=== PATIENT | male | born 1960 | race Caucasian/White ===

== ENCOUNTER 2018-08-02 18:41 | Inpatient (IN) | payer BC ==
--- NOTE | 2018-08-02 21:09 | ER Document Report ---
ED Medical Screen (RME) - General Chief Complaint: Abdominal Pain Stated Complaint: ABDOMINAL PAIN Time Seen by Provider: 08/02/18 20:48 Mode of Arrival: Ambulatory Information source: Patient Notes: Patient presents the emergency department with complaints of severe mid abdominal pain, vomiting and weakness. Patient denies any fever or diarrhea. He does state he has a history of an umbilical hernia. He states that the pain felt like a severe sharp stabbing pain just below his bellybutton. He states that since arrival to the emergency department the pain has eased off slightly. Exam: Generalized tenderness to palpation to mid abdomen I have greeted and performed a rapid initial assessment of this patient. A comprehensive ED assessment and evaluation of the patient, analysis of test results and completion of the medical decision making process will be conducted by additional ED providers. Dictation of this chart was performed using voice recognition software; therefore, there may be some unintended grammatical errors. TRAVEL OUTSIDE OF THE [place] IN LAST 30 DAYS: No - Related Data Allergies/Adverse Reactions: No Known Allergies Allergy (Verified 08/02/18 18:41) Past Medical History - Past Medical History Cardiac Medical History: Denies: Hx Coronary Artery Disease, Hx Heart Attack, Hx Hypertension Pulmonary Medical History: Reports: Hx Asthma - "touch", rare inhaler, Hx Pneumonia - 15-20 yrs ago Denies: Hx Bronchitis, Hx COPD Neurological Medical History: Denies: Hx Cerebrovascular Accident, Hx Seizures Renal/ Medical History: Denies: Hx Peritoneal Dialysis GI Medical History: Musculoskeltal Medical History: Denies Hx Arthritis Infectious Medical History: Past Surgical History: Reports: Hx Abdominal Surgery - umbilical hernia, Hx Nose Surgery - sinus. Denies: Hx Pacemaker - Immunizations Hx Diphtheria, Pertussis, Tetanus Vaccination: Yes Physical Exam - Vital signs Vitals: Temp Pulse Resp BP Pulse Ox 98.9 F 79 16 145/79 H 96 08/02/18 19:09 08/02/18 19:09 08/02/18 19:09 08/02/18 19:09 08/02/18 19:09 Course - Vital Signs Vital signs: Temp Pulse Resp BP Pulse Ox 98.9 F 79 16 145/79 H 96 08/02/18 19:09 08/02/18 19:09 08/02/18 19:09 08/02/18 19:09 08/02/18 19:09
[2018-08-02] MEDS ORDERED: MORPHINE SULFATE 10 MG/ML INJ IV ONE (21:10)
[2018-08-02] MEDS ORDERED: ONDANSETRON HCL INJ/PF 4 MG/2 ML SDV IV ONE (21:10)
--- NOTE | 2018-08-02 21:47 | RADIOLOGY REPORT (SQ) ---
EXAM DESCRIPTION: XR ABDOMEN 1 VIEW (KUB) COMPLETED DATE/TME: 08/02/2018 21:07 CLINICAL HISTORY: 58 years Male ,abd pain COMPARISON: None. TECHNIQUE: Single view of the abdomen was provided.. FINDINGS:Upper abdomen incompletely included on the image. No dilated loops of bowel to suggest obstruction. No abnormal calcifications noted. Degenerative changes are present in the spine and hips particularly around the right acetabulum. Postsurgical changes are present in the midline. IMPRESSION: No acute plain film abnormality is identified.
[2018-08-02 21:59] LABS: APPEARANCE,URINE CLEAR; BILIRUBIN,URINE NEGATIVE (NEGATIVE); COLOR,URINE YELLOW; GLUCOSE, URINE NEGATIVE (NEGATIVE); KETONES,URINE TRACE mg/dL (NEGATIVE); LEUKOCYTE ESTERASE,URINE NEGATIVE (NEGATIVE); NITRITE,URINE NEGATIVE (NEGATIVE); PROTEIN,URINE NEGATIVE (NEGATIVE); URINE SPECIFIC GRAVITY 1.021; UROBILINOGEN,URINE NEGATIVE mg/dL (<2.0)
[2018-08-02 22:00] LABS: HEMATOCRIT 44.8 % (37.9-51.0); HEMOGLOBIN 15.3 g/dL (13.5-17.0); MEAN CORPUSCULAR HEMOGLOBIN 29.7 pg (27.0-33.4); MEAN CORPUSCULAR HGB CONC 34.1 g/dL (32.0-36.0); MEAN CORPUSCULAR VOLUME 87 fl (80-97); PLATELET COUNT 198 10^3/uL (150-450); RED BLOOD COUNT 5.14 10^6/uL (4.35-5.55); RED CELL DISTRIBUTION WIDTH 13.4 % (11.5-14.0); WHITE BLOOD COUNT 13.9 10^3/uL (4.0-10.5)
[2018-08-02 22:11] LABS: ABSOLUTE LYMPHOCYTES# (MANUAL) 0.6 10^3/uL (0.5-4.7); ABSOLUTE MONOCYTES # (MANUAL) 0.1 10^3/uL (0.1-1.4); ABSOLUTE NEUTROPHILS# (MANUAL) 13.2 10^3/uL (1.7-8.2); BASOPHILS % (MANUAL) 0 % (0-2); EOSINOPHILS % (MANUAL) 0 % (0-6); LYMPHOCYTES % (MANUAL) 4 % (13-45); MONOCYTES % (MANUAL) 1 % (3-13); SEGMENTED NEUTROPHILS % (MAN) 95 % (42-78); TOTAL CELLS COUNTED 100
[2018-08-02 22:13] LABS: ALANINE AMINOTRANSFERASE 37 U/L (21-72); ALBUMIN 4.2 g/dL (3.5-5.0); ALKALINE PHOSPHATASE 66 U/L (38-126); ANION GAP 9 (5-19); ASPARTATE AMINO TRANSFERASE 21 U/L (17-59); BILIRUBIN,DIRECT 0.3 mg/dL (0.0-0.4); BILIRUBIN,TOTAL 1.5 mg/dL (0.2-1.3); BLOOD UREA NITROGEN 16 mg/dL (7-20); CALCIUM 9.6 mg/dL (8.4-10.2); CARBON DIOXIDE 30 mmol/L (22-30); CHLORIDE 100 mmol/L (98-107); GLUCOSE 157 mg/dL (75-110); LIPASE 22.8 U/L (23-300); POTASSIUM 4.7 mmol/L (3.6-5.0); SODIUM 139.4 mmol/L (137-145); TOTAL PROTEIN 6.8 g/dL (6.3-8.2)
[2018-08-02 22:14] LABS: RBC MORPHOLOGY COMMENT NORMO-CYTIC/CHROMIC; TOXIC GRANULATION SLIGHT
[2018-08-02 22:15] LABS: PLATELET COMMENT ADEQUATE
--- NOTE | 2018-08-03 01:48 | ER Document Report ---
ED General - General Chief Complaint: Abdominal Pain Stated Complaint: ABDOMINAL PAIN Time Seen by Provider: 08/02/18 20:48 Primary Care Provider: ADRIANA BURNS MD [Primary Care Provider] - Follow up as needed Mode of Arrival: Ambulatory Information source: Patient, Relative, [facility] Records Notes: 58-year-old male with a history of GERD, asthma presents with complaint of left lower quadrant abdominal pain that started 1 day prior to arrival. Patient states the pain was severe, sharp and associated with multiple episodes of nausea and vomiting. Upon my exam patient's pain and nausea have resolved. He denies any sick contacts, chest pain, shortness of breath, dysuria, hematuria. Patient's last bowel movement was this morning. Denies any black or bloody st ools. Patient reports an endoscopy and colonoscopy within the last year that was normal. TRAVEL OUTSIDE OF THE [place] IN LAST 30 DAYS: No - HPI Onset: Yesterday Onset/Duration: Gradual, Better Quality of pain: Stabbing, Throbbing Severity: Mild Pain Level: 1 Associated symptoms: Nausea, Vomiting, Weakness. denies: Chest pain, Chills, Diarrhea, Fever, Headache Exacerbated by: Walking Relieved by: Supine Similar symptoms previously: Yes Recently seen / treated by doctor: No - Related Data Allergies/Adverse Reactions: No Known Allergies Allergy (Verified 08/02/18 18:41) Past Medical History - General Information source: Patient - Social History Smoking Status: Never Smoker Frequency of alcohol use: None Drug Abuse: None Lives with: Spouse/Significant other Family History: Reviewed & Not Pertinent Patient has suicidal ideation: No Patient has homicidal ideation: No - Past Medical History Cardiac Medical History: Denies: Hx Coronary Artery Disease, Hx Heart Attack, Hx Hypertension Pulmonary Medical History: Reports: Hx Asthma - "touch", rare inhaler, Hx Pneumonia - 15-20 yrs ago Denies: Hx Bronchitis, Hx COPD Neurological Medical History: Denies: Hx Cerebrovascular Accident, Hx Seizures Renal/ Medical History: Denies: Hx Peritoneal Dialysis GI Medical History: Reports: Hx Gastroesophageal Reflux Disease Musculoskeletal Medical History: Denies Hx Arthritis Infectious Medical History: Past Surgical History: Reports: Hx Abdominal Surgery - umbilical hernia, Hx Nose Surgery - sinus. Denies: Hx Pacemaker - Immunizations Hx Diphtheria, Pertussis, Tetanus Vaccination: Yes Review of Systems - Review of Systems Notes: REVIEW OF SYSTEMS: CONSTITUTIONAL : Denies fever, chills, or sweats. Denies recent illness. Denies weight loss, recent hospitalizations. EENT: Denies visual changes, eye pain. Denies sore throat, oral lesions, difficulty swallowing. CARDIOVASCULAR: Denies chest pain. Denies palpitations. Denies lower extremity edema. RESPIRATORY: Denies cough. Denies shortness of breath, wheezing. GASTROINTESTINAL: + abdominal pain or distention. + nausea, vomiting. Denies diarrhea. Denies blood in vomitus, stools, or per rectum. Denies black, tarry stools. Denies constipation. GENITOURINARY: Denies difficulty urinating, painful urination, frequency, blood in urine, testicular pain or penile discharge. MUSCULOSKELETAL: Denies back or neck pain or stiffness. Denies joint pain or swelling. SKIN: Denies rash, lesions or sores. HEMATOLOGIC : Denies easy bruising or bleeding. LYMPHATIC: Denies swollen glands. NEUROLOGICAL: Denies confusion or altered mental status. Denies loss of consciousness. Denies dizziness or lightheadedness. Denies headache. Denies weakness or paralysis. Denies problems difficulty with ambulation, slurred speech. Denies sensory loss, numbness, or tingling. Denies seizures. PSYCHIATRIC: Denies anxiety or stress. Denies depression, suicidal ideation, or Physical Exam - Vital signs Vitals: Temp Pulse Resp BP Pulse Ox 98.9 F 79 16 145/79 H 96 08/02/18 19:09 08/02/18 19:09 08/02/18 19:09 08/02/18 19:09 08/02/18 19:09 - Notes Notes: PHYSICAL EXAMINATION: GENERAL: Well-appearing, well-nourished and in no acute distress. HEAD: Atraumatic, normocephalic. EYES: Pupils equal round and reactive to light, extraocular movements intact, sclera anicteric, conjunctiva are normal. ENT: Nares patent, oropharynx clear without exudates. Moist mucous membranes. NECK: Normal range of motion, supple without lymphadenopathy LUNGS: Breath sounds clear to auscultation bilaterally and equal. No wheezes rales or rhonchi. HEART: Regular rate and rhythm without murmurs ABDOMEN: Soft, tenderness with palpation to the left lower quadrant with associated guarding. Large umbilical hernia. Musculoskeletal: Normal range of motion, no pitting or edema. No cyanosis. NEUROLOGICAL: Cranial nerves grossly intact. Normal speech, normal gait. Normal sensory, motor exams PSYCH: Normal mood, normal affect. SKIN: Warm, Dry, normal turgor, no rashes or lesions noted. Course - Re-evaluation Re-evalutation: 08/03/18 03:06 Laboratory 08/02/18 08/02/18 08/02/18 21:36 21:37 21:37 WBC 13.9 H RBC 5.14 Hgb 15.3 Hct 44.8 MCV 87 MCH 29.7 MCHC 34.1 RDW 13.4 Plt Count 198 Total Counted 100 Seg Neutrophils % Not Reportable Seg Neuts % (Manual) 95 H Lymphocytes % Not Reportable Lymphocytes % (Manual) 4 L Monocytes % Not Reportable Monocytes % (Manual) 1 L Eosinophils % Not Reportable Eosinophils % (Manual) 0 Basophils % Not Reportable Basophils % (Manual) 0 Absolute Neutrophils Not Reportable Abs Neuts (Manual) 13.2 H Absolute Lymphocytes Not Reportable Abs Lymphs (Manual) 0.6 Absolute Monocytes Not Reportable Abs Monocytes (Manual) 0.1 Absolute Eosinophils Not Reportable Absolute Eos (Manual) 0.0 Absolute Basophils Not Reportable Abs Basophils (Manual) 0.0 Toxic Granulation SLIGHT Platelet Comment ADEQUATE RBC Morph Comment NORMO-CYTIC/CHROMIC Sodium 139.4 Potassium 4.7 Chloride 100 Carbon Dioxide 30 Anion Gap 9 BUN 16 Creatinine 0.80 Est GFR ( Amer) > 60 Est GFR (Non-Af Amer) > 60 Glucose 157 H Calcium 9.6 Total Bilirubin 1.5 H Direct Bilirubin 0.3 Neonat Total Bilirubin Not Reportable Neonat Direct Bilirubin Not Reportable Neonat Indirect Bili Not Reportable AST 21 ALT 37 Alkaline Phosphatase 66 Total Protein 6.8 Albumin 4.2 Lipase 22.8 L Urine Color YELLOW Urine Appearance CLEAR Urine pH 6.0 Ur Specific [place] 1.021 Urine Protein NEGATIVE Urine Glucose (UA) NEGATIVE Urine Ketones TRACE H Urine Blood NEGATIVE Urine Nitrite NEGATIVE Urine Bilirubin NEGATIVE Urine Urobilinogen NEGATIVE Ur Leukocyte Esterase NEGATIVE Urine WBC (Auto) 0 Urine RBC (Auto) 0 Squamous Epi Cells Auto <1 Urine Mucus (Auto) RARE Urine Ascorbic Acid NEGATIVE 08/03/18 03:07 KUB X-Ray 08/02/18 21:07 IMPRESSION: No acute plain film abnormality is identified. Abdomen/Pelvis CT 08/03/18 01:45 IMPRESSION: Acute sigmoid diverticulitis with peridiverticular abscess, as above. TECHNICAL DOCUMENTATION: Quality ID # 436: Final reports with documentation of one or more dose reduction techniques (e.g., Automated exposure control, adjustment of the mA and/or kV according to patient size, use of iterative reconstruction technique) copyright 2011 [employer]- All Rights Reserved Temp Pulse Resp BP Pulse Ox 98.9 F 79 16 145/79 H 96 08/02/18 19:09 08/02/18 19:09 08/02/18 19:09 08/02/18 19:09 08/02/18 19:09 08/03/18 03:14 58-year-old male presents with complaint of left lower quadrant abdominal pain, persistent nausea and vomiting that started earlier this afternoon. Vital signs reviewed and within normal limits. Patient does not appear toxic or dehydrated. He is in no acute distress. Exam is significant for tenderness in the left lower quadrant with guarding. Patient did receive Zosyn, Flagyl, Zofran. CT of the abdomen and pelvis were obtained and significant for a peridiverticular abscess and diverticulitis of the sigmoid colon. I did speak to Dr. Farmer surgeon on-call who states that interventional radiology would be the service to contact as they would perform a drain. Dao Cheng from IR was paged at [phone] 15 and call back.. 08/03/18 03:52 Patient has been accepted by Dr. Rico hospitalist. - Vital Signs Vital signs: Temp Pulse Resp BP Pulse Ox 98.9 F 79 16 145/79 H 96 08/02/18 19:09 08/02/18 19:09 08/02/18 19:09 08/02/18 19:09 08/02/18 19:09 - Laboratory Result Diagrams: 08/02/18 21:37 08/02/18 21:37 Laboratory results interpreted by me: 08/02/18 08/02/18 08/02/18 21:36 21:37 21:37 WBC 13.9 H Seg Neuts % (Manual) 95 H Lymphocytes % (Manual) 4 L Monocytes % (Manual) 1 L Abs Neuts (Manual) 13.2 H Glucose 157 H Total Bilirubin 1.5 H Lipase 22.8 L Urine Ketones TRACE H - Diagnostic Test Radiology reviewed: Image reviewed, Reports reviewed Discharge - Discharge Clinical Impression: Diverticulitis, Peridiverticular abscess, Abdominal pain, left lower quadrant Condition: Good Disposition: ADMITTED INPATIENT Admitting Provider: Trisha (Hospitalist) Unit Admitted: Medical Floor Referrals: ADRIANA BURNS MD [Primary Care Provider] - Follow up as needed
[2018-08-03] MEDS ORDERED: ONDANSETRON HCL INJ/PF 4 MG/2 ML SDV IV ONE (02:33)
[2018-08-03] MEDS ORDERED: KETOROLAC TROMETHAMINE INJ/PF 30 MG/1 ML SDV IV ONE (02:33)
--- NOTE | 2018-08-03 02:48 | RADIOLOGY REPORT (SQ) ---
EXAM DESCRIPTION: CT ABDOMEN PELVIS WITH IV CONTRAST COMPLETED DATE/TME: 08/03/2018 01:45 CLINICAL HISTORY: 58 years, Male, LLQ pain COMPARISON: None. TECHNIQUE: 565 Images stored on PACS. All CT scanners at this facility use dose modulation, iterative reconstruction, and/or weight based dosing when appropriate to reduce radiation dose to as low as reasonably achievable (ALARA). [facility]: Dose Right [facility]: CareDose [facility]: Dose Right [facility]: Teradose 4D [facility]: Smart [employer] LIMITATIONS: None. FINDINGS: Lung bases are unremarkable. Osseous structures are grossly intact. Fatty infiltrative change to the liver. The spleen, adrenal glands, pancreas, kidneys are unremarkable. The gallbladder is present. Normal appendix. Post surgical changes of the anterior abdominal wall. No evidence for bowel obstruction. However, there is redundancy of the sigmoid colon with a thick-walled appearance of the sigmoid colon and multiple diverticuli. There is surrounding inflammation with a complex gas collection likely reflecting abscess difficult to separate from the wall of the sigmoid colon. This measures approximately 3.9 x 4.2 x 4.2 cm. This is most consistent with. Diverticular abscess. IMPRESSION: Acute sigmoid diverticulitis with peridiverticular abscess, as above. TECHNICAL DOCUMENTATION: Quality ID # 436: Final reports with documentation of one or more dose reduction techniques (e.g., Automated exposure control, adjustment of the mA and/or kV according to patient size, use of iterative reconstruction technique) copyright 2010 [employer]- All Rights Reserved
[2018-08-03] MEDS ORDERED: PIPERACILLIN/TAZOBACTAM 3.375 GM VIAL IV ONE (03:06)
[2018-08-03] MEDS ORDERED: METRONIDAZOLE 500 MG/NS RTU 500 MG/100 ML RTUPB IV ONE (03:16)
[2018-08-03] MEDS ORDERED: DEXTROSE 50%-WATER 25 GM/50 ML DISP.SYRIN IV PRN ×2 (04:29)
[2018-08-03] MEDS ORDERED: MAG HYDROX/AL HYDROX/SIMETH SUSP 30 ML UDCUP PO PRN (04:29)
[2018-08-03] MEDS ORDERED: GLUCAGON,HUMAN RECOMB 1 MG INJ SUBCUT PRN (04:29)
[2018-08-03] MEDS ORDERED: DEXTROSE 40% GEL 15 GM TUBE PO PRN ×2 (04:29)
[2018-08-03] MEDS ORDERED: TEMAZEPAM 15 MG CAPSULE PO PRN (04:29)
[2018-08-03] MEDS ORDERED: ACETAMINOPHEN 325 MG TABLET PO PRN (04:32)
[2018-08-03] MEDS ORDERED: ACETAMINOPHEN 650 MG SUPP.RECT PR PRN (04:32)
[2018-08-03] MEDS ORDERED: MORPHINE SULFATE 10 MG/ML INJ IV PRN ×4 (04:32→04:38)
[2018-08-03] MEDS: HEPARIN SOD (PORCINE) 5,000 UNIT/ML 1 ML SYRINGE SUBCUT SCH ×3 (06:10→21:45)
--- NOTE | 2018-08-03 06:20 | PDOC H&P ---
History of Present Illness Admission Date/PCP: 08/03/2018 ADRIANA BURNS MD Patient complains of: Abdominal pain History of Present Illness: DAISY CARRERA JR is a 58 year old male who presented to the emergency room with a 1 day history of abdominal pain. Patient admits sudden onset of a severe, sharp stabbing, nonradiating pain in the left lower quadrant pain beginning early in the afternoon of 08/02/2018. He further admits that he actually had symptoms of obstipation on the previous day but was able to have a bowel movement on the morning of the several hours before the onset of his pain. The pain continued throughout the remainder of the day and was accompanied by numerous episodes of nausea and vomiting with associated generalized weakness. Pain is made worse by activity or exertion and lessened by rest. Patient admits several prior similar episodes over the last 1-2 years. He has not identified any other aggravating or other ameliorating factors for his abdominal pain. In the emergency room he was found to have acute sigmoid diverticulitis with a peridiverticular abscess. Patient was subsequently admitted to the hospital for further evaluation and treatment. Past Medical History Cardiac Medical History: Denies: Coronary Artery Disease, Myocardial Infarction, Hypertension Pulmonary Medical History: Reports: Asthma - "touch", rare inhaler, Pneumonia - 15-20 yrs ago Denies: Bronchitis, Chronic Obstructive Pulmonary Disease (COPD) EENT Medical History: Denies: Cataracts, Eyes - Prescription lenses, Ears - Hearing aids Neurological Medical History: Denies: Hemorrhagic CVA, Ischemic CVA, Seizures Endocrine Medical History: Reports: Obesity Denies: Diabetes Mellitus Type 1, Diabetes Mellitus Type 2, Hyperthyroidism, Hypothyroidism Renal/ Medical History: Denies: Chronic Kidney Disease, Nephrolithiasis Malignancy Medical History: Reports: None GI Medical History: Reports: Gastroesophageal Reflux Disease Denies: Cirrhosis, Crohn's Disease, Diverticulitis, Hepatitis, Peptic Ulcer Disease, Ulcerative Colitis Musculoskeltal Medical History: Denies: Arthritis, Gout Skin Medical History: Denies: Eczema, Psoriasis Psychiatric Medical History: Denies: Alcohol Dependency, Substance Abuse, Tobacco Dependency Traumatic Medical History: Reports: None Hematology: Denies: Anemia, Bleeding Tendencies Infectious Medical History: Reports: None Past Surgical History Past Surgical History: Reports: Other - EGD and colonoscopy Social History Information Source: Patient Lives with: Spouse/Significant other Smoking Status: Never Smoker Frequency of Alcohol Use: None Hx Recreational Drug Use: No Drugs: None - Advance Directive Resuscitation Status: Full Code Surrogate healthcare decision maker:: Meron Carrera his spouse Family History Family History: Malignancy. denies: CAD, DM, Hypertension Parental Family History Reviewed: Yes Children Family History Reviewed: No Sibling(s) Family History Reviewed.: Yes Medication/Allergy Allergies/Adverse Reactions: No Known Allergies Allergy (Verified 08/02/18 18:41) Review of Systems Constitutional: PRESENT: as per HPI, weakness. ABSENT: chills, fever(s) Eyes: ABSENT: visual disturbances, other - Ocular pain Ears: ABSENT: hearing changes, other - Ear pain Nose, Mouth, and Throat: ABSENT: mouth pain, sore throat Cardiovascular: ABSENT: chest pain, palpitations Respiratory: ABSENT: cough, dyspnea Gastrointestinal: PRESENT: as per HPI, abdominal pain, nausea, vomiting. ABSENT: constipation, diarrhea, hematemesis, hematochezia, melena Genitourinary: ABSENT: dysuria, hematuria Musculoskeletal: ABSENT: back pain, joint swelling, muscle weakness Integumentary: ABSENT: pruritus, rash Neurological: ABSENT: confusion, convulsions, focal weakness, memory loss, syncope Psychiatric: ABSENT: anxiety, depression Endocrine: ABSENT: cold intolerance, heat intolerance Hematologic/Lymphatic: ABSENT: easy bleeding, easy bruising Physical Exam Vital Signs: Temp Pulse Resp BP Pulse Ox 98.9 F 79 16 145/79 H 96 08/02/18 19:09 08/02/18 19:09 08/02/18 19:09 08/02/18 19:09 08/02/18 19:09 Intake & Output 08/01/18 08/02/18 08/03/18 23:59 23:59 23:59 Weight 111.9 kg General appearance: PRESENT: no acute distress, cooperative, obese Head exam: PRESENT: atraumatic, normocephalic Eye exam: ABSENT: conjunctival injection, scleral icterus Ear exam: PRESENT: normal external ear exam. ABSENT: bleeding, drainage Mouth exam: PRESENT: dry mucosa, neck supple Neck exam: ABSENT: thyromegaly, tracheal deviation Respiratory exam: PRESENT: clear to auscultation db, symmetrical, unlabored Cardiovascular exam: PRESENT: RRR. ABSENT: clicks, gallop, rubs Pulses: PRESENT: normal radial pulses, normal dorsalis pedis pul Vascular exam: PRESENT: normal capillary refill. ABSENT: pallor GI/Abdominal exam: PRESENT: distended - Slight gaseous distention with mild tympany on percussion, hypoactive bowel sounds, soft, tenderness - Moderate left lower quadrant tenderness on palpation without point localization or rebound Rectal exam: PRESENT: deferred Extremities exam: ABSENT: joint swelling, pedal edema Musculoskeletal exam: PRESENT: full ROM, normal inspection Neurological exam: PRESENT: alert, oriented to person, oriented to place, oriented to time, oriented to situation, CN II-XII grossly intact. ABSENT: motor sensory deficit Psychiatric exam: PRESENT: appropriate affect, normal mood Skin exam: PRESENT: dry, intact, warm. ABSENT: jaundice, rash, urticaria Results Laboratory Results: 08/02/18 21:37 08/02/18 21:37 08/02/18 08/02/18 08/02/18 21:36 21:37 21:37 WBC 13.9 H RBC 5.14 Hgb 15.3 Hct 44.8 MCV 87 MCH 29.7 MCHC 34.1 RDW 13.4 Plt Count 198 Seg Neutrophils % Not Reportable Lymphocytes % Not Reportable Monocytes % Not Reportable Eosinophils % Not Reportable Basophils % Not Reportable Absolute Neutrophils Not Reportable Absolute Lymphocytes Not Reportable Absolute Monocytes Not Reportable Absolute Eosinophils Not Reportable Absolute Basophils Not Reportable Sodium 139.4 Potassium 4.7 Chloride 100 Carbon Dioxide 30 Anion Gap 9 BUN 16 Creatinine 0.80 Est GFR ( Amer) > 60 Est GFR (Non-Af Amer) > 60 Glucose 157 H Calcium 9.6 Total Bilirubin 1.5 H AST 21 ALT 37 Alkaline Phosphatase 66 Total Protein 6.8 Albumin 4.2 Lipase 22.8 L Urine Color YELLOW Urine Appearance CLEAR Urine pH 6.0 Ur Specific [place] 1.021 Urine Protein NEGATIVE Urine Glucose (UA) NEGATIVE Urine Ketones TRACE H Urine Blood NEGATIVE Urine Nitrite NEGATIVE Ur Leukocyte Esterase NEGATIVE Urine WBC (Auto) 0 Urine RBC (Auto) 0 Impressions: KUB X-Ray 08/02/18 21:07 IMPRESSION: No acute plain film abnormality is identified. Abdomen/Pelvis CT 08/03/18 01:45 IMPRESSION: Acute sigmoid diverticulitis with peridiverticular abscess, as above. TECHNICAL DOCUMENTATION: Quality ID # 436: Final reports with documentation of one or more dose reduction techniques (e.g., Automated exposure control, adjustment of the mA and/or kV according to patient size, use of iterative reconstruction technique) copyright 2011 [employer]- All Rights Reserved Assessment and Plan - Diagnosis (1) Acute diverticulitis Is this a current diagnosis for this admission?: Yes Plan: Patient will be treated with IV antibiotics utilizing Zosyn and Flagyl. He will also receive supportive and symptomatic cares as required. Daily CBC, BMP and magnesium levels will be used to follow the course of illness. Interventional radiology will be consulted for CT directed drainage of the sigmoid peridiverticular abscess. (2) Abscess of sigmoid colon due to diverticulitis Is this a current diagnosis for this admission?: Yes Plan: Interventional radiology will be consulted for drainage of the sigmoid abscess. (3) Nausea and vomiting Qualifiers: Vomiting type: unspecified Vomiting Intractability: non-intractable Qualified Code(s): R11.2 - Nausea with vomiting, unspecified Is this a current diagnosis for this admission?: Yes Plan: Patient's nausea and vomiting will be treated with Zofran 4 mg IV every 4 hours as needed. (4) Abdominal pain, left lower quadrant Is this a current diagnosis for this admission?: Yes Plan: Patient's abdominal pain will be treated with morphine sulfate 2 to 4 mg IV every 2 hours as needed. - Time Time Spent with patient: 25-34 minutes Anticipated discharge: Home - Inpatient Certification Based on my medical assessment, after consideration of the patient's comorbidities, presenting symptoms, or acuity I expect that the services needed warrant INPATIENT care.: Yes I certify that my determination is in accordance with my understanding of Medicare's requirements for reasonable and necessary INPATIENT services [42 CFR 412.3e].: Yes Medical Necessity: Need Close Monitoring Due to Risk of Patient Decompensation, Need For IV Fluids, Need for Pain Control, Need for IV Antibiotics, Need for Surgery, Risk of Complication if Not Cared For in Hospital
[2018-08-03 07:42] LABS: INTERNATIONAL RATION (INR) 1.05; PROTHROMBIN TIME 14.2 SEC (11.4-15.4)
[2018-08-03 07:43] LABS: PARTIAL THROMBOPLASTIN TIME 29.1 SEC (23.5-35.8)
[2018-08-03] MEDS: METRONIDAZOLE 500 MG/NS RTU 500 MG/100 ML RTUPB IV SCH ×3 (08:21→21:52)
[2018-08-03] MEDS ORDERED: PIPERACILLIN/TAZOBACTAM 3.375 GM VIAL IV SCH (09:00)
[2018-08-03] MEDS: PIPERACILLIN SODIUM/TAZOBACTAM 3.375 GM in NORMAL SALINE 100 ML IV SCH ×3 (09:36→21:51)
[2018-08-03] MEDS: DOCUSATE SODIUM 100 MG CAPSULE PO SCH ×2 (09:47→17:22)
[2018-08-03] MEDS ORDERED: FAMOTIDINE 20 MG TABLET PO SCH (10:00)
--- NOTE | 2018-08-03 14:15 | RADIOLOGY REPORT (SQ) ---
EXAM DESCRIPTION: CT ABD/PELVIS ORAL ONLY COMPLETED DATE/TIME: 08/03/2018 11:08 am REASON FOR STUDY: Sigmoid Diverticulitis COMPARISON: CT abdomen and pelvis with IV contrast only, 08/03/2018 0150 hours TECHNIQUE: CT scan of the abdomen and pelvis performed without intravenous contrast. Patient drank oral contrast. Images reviewed with lung, soft tissue, and bone windows. Reconstructed coronal and sagittal MPR imag es reviewed. All images stored on PACS. All CT scanners at this facility use dose modulation, iterative reconstruction, and/or weight based d osing when appropriate to reduce radiation dose to as low as reasonably achievable (ALARA). [facility]: Dose Right [facility]: CareDose [facility]: Dose Right [facility]: Teradose 4D [facility]: [employer] RADIATION DOSE: CT Rad equipment meets quality standard of care and radiation dose reduction techniq ues were employed. CTDIvol: 25.8 mGy. DLP: 1468 mGy-cm.mGy. LIMITATIONS: None. FINDINGS: Patient drank oral contrast. Patient was scanned at 1100 hours and 1330 hours, 2 LL anteg rade passage of the oral contrast into the colon. There is no bowel obstruction. The contained sigmoid colon diverticular perforation is present along the dorsal aspect of the proximal sigmoid colon, best shown on coronal images 33 through 50, and sag ittal images 52-58. There is surrounding inflammatory change in the mesenteric fat. No well circums cribed abscess. Trace extravasation of oral contrast into the perforation on coronal reconstruction image 47-50. This report was called to Dr. Fierro, 1400 hours 08/03/2018. No free subdiaphragmatic air. No drainable abscess from a percutaneous approach. LOWER CHEST: Lung bases are clear. Small hiatal hernia NON-CONTRASTED LIVER, SPLEEN, ADRENALS: Evaluation limited by lack of IV contrast. No identified sign ificant masses. PANCREAS: No masses. No peripancreatic inflammatory changes. GALLBLADDER: No identified stones by CT criteria. No inflammatory changes to suggest cholecystitis. RIGHT KIDNEY AND URETER: No suspicious masses. Assessment limited by lack of IV contrast. No signif icant calcifications. No hydronephrosis or hydroureter. LEFT KIDNEY AND URETER: No suspicious masses. Assessment limited by lack of IV contrast. No signifi cant calcifications. No hydronephrosis or hydroureter. AORTA AND RETROPERITONEUM: No aneurysm. No retroperitoneal masses or adenopathy. BOWEL AND PERITONEAL CAVITY: As above APPENDIX: Normal. PELVIS, BLADDER, AND ABDOMINAL WALL:No abnormal masses. No free fluid. Bladder normal. Intact umbili george hernia repair BONES: No significant findings. OTHER: No other significant finding. IMPRESSION: Contained sigmoid colon diverticular perforation with air pocket along the dorsal aspect of the proximal sigmoid colon. There is trace leakage of oral contrast into the cavity. Surroundin g inflammatory change without free intraperitoneal air or well-circumscribed drainable abscess. Find ings called to the hospitalist attending physician 08/03/2018 1400 hours. COMMENT: Quality ID # [id number]: Final reports with documentation of one or more dose reduction techniques (e.g., Automated exposure control, adjustment of the mA and/or kV according to patient size, use of iterative reconstruction technique) TECHNICAL DOCUMENTATION: JOB ID: [id number] [employer]- All Rights Reserved Reading location - IP/workstation name: [email or web address]
[2018-08-03] MEDS ORDERED: NORMAL SALINE 1000 ML 1,000 ML IV PRN ×2 (16:46→17:36)
[2018-08-03] MEDS ORDERED: NORMAL SALINE 1000 ML 2,000 ML IV ONE (17:30)
[2018-08-03] MEDS ORDERED: DEXTROSE 5%-NORMAL SALINE 1,000 ML IV PRN (17:36)
--- NOTE | 2018-08-03 17:51 | PDOC CONSULTATION ---
Consultation Consult Date: 08/03/18 Provider Consulted: CHEN JONES Consult reason:: Abdominal pain, perfoirated sigmoid diverticulitits History of Present Illness Admission Date/PCP: 08/03/18 03:59 ADRIANA BURNS MD History of Present Illness: DAISY CARRERA JR is a 58 year old male with a 2 day hx of abdominal pain, mainl left sided. He reports similar left sided abdominal pain episode twice during the past years but never seeked medical attention. He presents to the ER woith a c/o left abdominal pain, nausea, no fever or chills, normal bowel function today, no hematochetia. A CT scan A/P done today with oral contrast reveals a proximal sigmoid perforation, contained, as per perforated sigmoid diverticulitits with a very small amount of air and possible contrast in the contained perforation area. At this time, he feels well, denies abdominal pin, N/V, and has had two bowel movement w/o blood. He has undergone a normal colonoscopy 1 year ago Past Medical History Cardiac Medical History: Denies: Coronary Artery Disease, Myocardial Infarction, Hypertension Pulmonary Medical History: Reports: Asthma - "touch", rare inhaler, Pneumonia - 15-20 yrs ago Denies: Bronchitis, Chronic Obstructive Pulmonary Disease (COPD) EENT Medical History: Denies: Cataracts, Eyes - Prescription lenses, Ears - Hearing aids Neurological Medical History: Denies: Hemorrhagic CVA, Ischemic CVA, Seizures Endocrine Medical History: Reports: Obesity Denies: Diabetes Mellitus Type 1, Diabetes Mellitus Type 2, Hyperthyroidism, Hypothyroidism Renal/ Medical History: Denies: Chronic Kidney Disease, Nephrolithiasis Malignancy Medical History: Reports: None GI Medical History: Reports: Gastroesophageal Reflux Disease Denies: Cirrhosis, Crohn's Disease, Diverticulitis, Hepatitis, Peptic Ulcer Disease, Ulcerative Colitis Musculoskeltal Medical History: Denies: Arthritis, Gout Skin Medical History: Denies: Eczema, Psoriasis Psychiatric Medical History: Denies: Alcohol Dependency, Depression, Substance Abuse, Tobacco Dependency Traumatic Medical History: Reports: None Hematology: Denies: Anemia, Bleeding Tendencies Infectious Medical History: Reports: None Past Surgical History Past Surgical History: Reports: Other - EGD and colonoscopy Denies: Pacemaker Social History Lives with: Spouse/Significant other Smoking Status: Never Smoker Frequency of Alcohol Use: None Hx Recreational Drug Use: No Drugs: None - Advance Directive Resuscitation Status: Full Code Family History Family History: Malignancy. denies: CAD, DM, Hypertension Parental Family History Reviewed: No Children Family History Reviewed: No Sibling(s) Family History Reviewed.: No Medication/Allergy Home Medications: Calcium Carbonate [Calcium] 1,200 mg PO DAILY 08/03/18 Fexofenadine HCl [Catarina] 180 mg PO QAM 08/03/18 Pantoprazole Sodium [Protonix [address] Tablet] 20 mg PO DAILY 08/03/18 Allergies/Adverse Reactions: No Known Allergies Allergy (Verified 08/02/18 18:41) Physical Exam Vital Signs: Temp Pulse Resp BP Pulse Ox 99.2 F 73 18 113/66 98 08/03/18 15:22 08/03/18 15:22 08/03/18 12:00 08/03/18 15:22 08/03/18 15:22 Intake & Output 08/02/18 08/03/18 08/04/18 06:59 06:59 06:59 Intake Total 100 400 Balance 100 400 Weight 112.4 kg General appearance: PRESENT: no acute distress Head exam: PRESENT: atraumatic Eye exam: PRESENT: conjunctiva pink, EOMI Mouth exam: PRESENT: neck supple Neck exam: PRESENT: full ROM Respiratory exam: PRESENT: clear to auscultation db Cardiovascular exam: PRESENT: RRR GI/Abdominal exam: ABSENT: diminished bowel sounds, firm, Grimes's sign Extremities exam: PRESENT: full ROM Musculoskeletal exam: PRESENT: full ROM Neurological exam: PRESENT: ataxia Psychiatric exam: PRESENT: appropriate affect Focused psych exam: PRESENT: paranoid Results Laboratory Results: 08/02/18 21:37 08/02/18 21:37 08/02/18 08/02/18 08/02/18 21:36 21:37 21:37 WBC 13.9 H RBC 5.14 Hgb 15.3 Hct 44.8 MCV 87 MCH 29.7 MCHC 34.1 RDW 13.4 Plt Count 198 Seg Neutrophils % Not Reportable Lymphocytes % Not Reportable Monocytes % Not Reportable Eosinophils % Not Reportable Basophils % Not Reportable Absolute Neutrophils Not Reportable Absolute Lymphocytes Not Reportable Absolute Monocytes Not Reportable Absolute Eosinophils Not Reportable Absolute Basophils Not Reportable Sodium 139.4 Potassium 4.7 Chloride 100 Carbon Dioxide 30 Anion Gap 9 BUN 16 Creatinine 0.80 Est GFR ( Amer) > 60 Est GFR (Non-Af Amer) > 60 Glucose 157 H Calcium 9.6 Total Bilirubin 1.5 H AST 21 ALT 37 Alkaline Phosphatase 66 Total Protein 6.8 Albumin 4.2 Lipase 22.8 L Urine Color YELLOW Urine Appearance CLEAR Urine pH 6.0 Ur Specific [place] 1.021 Urine Protein NEGATIVE Urine Glucose (UA) NEGATIVE Urine Ketones TRACE H Urine Blood NEGATIVE Urine Nitrite NEGATIVE Ur Leukocyte Esterase NEGATIVE Urine WBC (Auto) 0 Urine RBC (Auto) 0 Impressions: KUB X-Ray 08/02/18 21:07 IMPRESSION: No acute plain film abnormality is identified. Abdomen/Pelvis CT 08/03/18 08:24 IMPRESSION: Contained sigmoid colon diverticular perforation with air pocket along the dorsal aspect of the proximal sigmoid colon. There is trace leakage of oral contrast into the cavity. Surrounding inflammatory change without free intraperitoneal air or well-circumscribed drainable abscess. Findings called to the hospitalist attending physician 08/03/2018 1400 hours. Assessment & Plan - Diagnosis (1) Abscess of sigmoid colon due to diverticulitis Is this a current diagnosis for this admission?: Yes - Plan Summary Plan Summary: A/ Localized and contained proximal sigmoid diverticulitus WBC 13K PE unremarkable, only minimal tenderness P/ No intervention at this time Continue NPO IVF 2 L bolus, then 150 mL/hr NS IV Abx Levaquin Flagyl or similar combination Diet can be advanced in 1-2 days to a low residue, no seed diet, lifetime Patient will need a colonoscopy after the acute phase has resolved (about 3 -5 months from now) Colon resection will be performed if patient become symptomatic and if his perforation has become free We will follow the patient daily and determine his improvement if cormier.
[2018-08-03] MEDS ORDERED: PANTOPRAZOLE SODIUM 40 MG VIAL IV ONE (23:00)
[2018-08-03] MEDS: PANTOPRAZOLE SODIUM 40 MG VIAL IV SCH (23:22)
[2018-08-04] MEDS: PIPERACILLIN SODIUM/TAZOBACTAM 3.375 GM in NORMAL SALINE 100 ML IV SCH ×4 (04:00→21:18)
[2018-08-04] MEDS: METRONIDAZOLE 500 MG/NS RTU 500 MG/100 ML RTUPB IV SCH ×4 (04:01→21:56)
[2018-08-04 05:00] LABS: ABSOLUTE LYMPHOCYTES (AUTO) 0.7 10^3/uL (0.5-4.7); ABSOLUTE MONOCYTES (AUTO) 0.6 10^3/uL (0.1-1.4); ABSOLUTE NEUT (AUTO) 5.3 10^3/uL (1.7-8.2); BASOPHILS % (AUTO) 0.3 % (0-2); EOSINOPHILS % (AUTO) 0.7 % (0-6); HEMATOCRIT 37.4 % (37.9-51.0); LYMPHOCYTES % (AUTO) 10.2 % (13-45); MEAN CORPUSCULAR HEMOGLOBIN 29.7 pg (27.0-33.4); MEAN CORPUSCULAR HGB CONC 34.1 g/dL (32.0-36.0); MEAN CORPUSCULAR VOLUME 87 fl (80-97); MONOCYTES % (AUTO) 8.4 % (3-13); PLATELET COUNT 151 10^3/uL (150-450); RED CELL DISTRIBUTION WIDTH 13.6 % (11.5-14.0); SEGMENTED NEUTROPHILS % (AUTO) 80.4 % (42-78); TOTAL CELLS COUNTED % (AUTO) 100 %; WHITE BLOOD COUNT 6.7 10^3/uL (4.0-10.5)
[2018-08-04 05:03] LABS: HEMOGLOBIN 12.8 g/dL (13.5-17.0)
[2018-08-04 05:05] LABS: INTERNATIONAL RATION (INR) 1.14; PROTHROMBIN TIME 15.2 SEC (11.4-15.4)
[2018-08-04 05:06] LABS: PARTIAL THROMBOPLASTIN TIME 35.7 SEC (23.5-35.8)
[2018-08-04 05:24] LABS: ANION GAP 6 (5-19); BLOOD UREA NITROGEN 13 mg/dL (7-20); CALCIUM 8.1 mg/dL (8.4-10.2); CARBON DIOXIDE 28 mmol/L (22-30); CHLORIDE 107 mmol/L (98-107); GLUCOSE 102 mg/dL (75-110); POTASSIUM 4.4 mmol/L (3.6-5.0); SODIUM 140.5 mmol/L (137-145)
[2018-08-04] MEDS: HEPARIN SOD (PORCINE) 5,000 UNIT/ML 1 ML SYRINGE SUBCUT SCH (05:33)
[2018-08-04] MEDS: DOCUSATE SODIUM 100 MG CAPSULE PO SCH ×2 (09:34→18:15)
[2018-08-04] MEDS ORDERED: CALCIUM GLUCONATE 1000 MG/10 ML INJ IV ONE ×2 (09:38→13:30)
--- NOTE | 2018-08-04 11:03 | PDOC PROGRESS REPORT ---
Subjective Progress Note for:: 08/04/18 Subjective:: patient reports no abdominal pain, he has had several bouts of liquid stools, last one this AM , no blood noted Reason For Visit: ACUTE SIGMOID DIVERTICULITIS WITH ABSCESS Physical Exam Vital Signs: Temp Pulse Resp BP Pulse Ox 98.9 F 80 17 110/67 96 08/04/18 08:00 08/04/18 08:00 08/04/18 08:00 08/04/18 08:00 08/04/18 08:00 Intake & Output 08/03/18 08/04/18 08/05/18 06:59 06:59 06:59 Intake Total 100 2800 Balance 100 2800 Weight 112.4 kg 111.8 kg General appearance: PRESENT: no acute distress Respiratory exam: PRESENT: clear to auscultation db Cardiovascular exam: PRESENT: RRR GI/Abdominal exam: PRESENT: soft, tenderness - very slight in the LLQ Results Laboratory Results: 08/04/18 04:31 08/04/18 04:31 08/04/18 08/04/18 04:31 04:31 WBC 6.7 RBC 4.30 L Hgb 12.8 L D Hct 37.4 L MCV 87 MCH 29.7 MCHC 34.1 RDW 13.6 Plt Count 151 Seg Neutrophils % 80.4 H Lymphocytes % 10.2 L Monocytes % 8.4 Eosinophils % 0.7 Basophils % 0.3 Absolute Neutrophils 5.3 Absolute Lymphocytes 0.7 Absolute Monocytes 0.6 Absolute Eosinophils 0.0 Absolute Basophils 0.0 Sodium 140.5 Potassium 4.4 Chloride 107 Carbon Dioxide 28 Anion Gap 6 BUN 13 Creatinine 0.91 Est GFR ( Amer) > 60 Est GFR (Non-Af Amer) > 60 Glucose 102 Calcium 8.1 L Magnesium 2.2 Impressions: KUB X-Ray 08/02/18 21:07 IMPRESSION: No acute plain film abnormality is identified. Abdomen/Pelvis CT 08/03/18 08:24 IMPRESSION: Contained sigmoid colon diverticular perforation with air pocket along the dorsal aspect of the proximal sigmoid colon. There is trace leakage of oral contrast into the cavity. Surrounding inflammatory change without free intraperitoneal air or well-circumscribed drainable abscess. Findings called to the hospitalist attending physician 08/03/2018 1400 hours. Assessment & Plan - Diagnosis (1) Abscess of sigmoid colon due to diverticulitis Is this a current diagnosis for this admission?: Yes - Plan Summary Plan Summary: A/ Contained sigmoid colon perforation, possibly secondary to acute diverticulitis Patient symptoms improved, no abdominal pain Bowel function returned VSS, afebrile WBC 6.7K today, down from 13.9K yesterday P/ Continue IVF NPO Blood work in AM start Lovenox for DVT prophylaxis SCD for DVT prophylaxis Tomorrow, if the patient is still asymtpomatic with bowel function present, diet can be advanced to ice chips/sips of clears
[2018-08-04] MEDS ORDERED: DEXTROSE 5%-NORMAL SALINE 1,000 ML IV PRN (11:05)
[2018-08-04 11:40] LABS: ABSOLUTE BASOPHILS # (AUTO) 0.1 10^3/uL (0.0-0.2); ABSOLUTE LYMPHOCYTES (AUTO) 0.6 10^3/uL (0.5-4.7); ABSOLUTE MONOCYTES (AUTO) 0.4 10^3/uL (0.1-1.4); ABSOLUTE NEUT (AUTO) 5.2 10^3/uL (1.7-8.2); BASOPHILS % (AUTO) 0.8 % (0-2); EOSINOPHILS % (AUTO) 0.6 % (0-6); HEMATOCRIT 39.4 % (37.9-51.0); HEMOGLOBIN 13.3 g/dL (13.5-17.0); LYMPHOCYTES % (AUTO) 9.2 % (13-45); MEAN CORPUSCULAR HEMOGLOBIN 29.3 pg (27.0-33.4); MEAN CORPUSCULAR HGB CONC 33.8 g/dL (32.0-36.0); MEAN CORPUSCULAR VOLUME 87 fl (80-97); MONOCYTES % (AUTO) 6.9 % (3-13); PLATELET COUNT 175 10^3/uL (150-450); RED BLOOD COUNT 4.55 10^6/uL (4.35-5.55); RED CELL DISTRIBUTION WIDTH 13.4 % (11.5-14.0); SEGMENTED NEUTROPHILS % (AUTO) 82.5 % (42-78); TOTAL CELLS COUNTED % (AUTO) 100 %; WHITE BLOOD COUNT 6.3 10^3/uL (4.0-10.5)
[2018-08-04 11:55] LABS: INTERNATIONAL RATION (INR) 1.12
[2018-08-04 11:56] LABS: PARTIAL THROMBOPLASTIN TIME 33.3 SEC (23.5-35.8)
[2018-08-04] MEDS: ENOXAPARIN SODIUM INJ 40 MG/0.4 ML DISP.SYRIN SUBCUT SCH (12:41)
--- NOTE | 2018-08-04 12:47 | PDOC PROGRESS REPORT ---
Subjective Progress Note for:: 08/04/18 Subjective:: DAISY CARRERA JR is a 58 year old male who presented to the emergency room with a 1 day history of abdominal pain. Patient admits sudden onset of a severe, sharp stabbing, nonradiating pain in the left lower quadrant pain beginning early in the afternoon of 08/02/2018. He further admits that he actually had symptoms of obstipation on the previous day but was able to have a bowel movement on the morning of the several hours before the onset of his pain. The pain continued throughout the remainder of the day and was accompanied by numerous episodes of nausea and vomiting with associated generalized weakness. Pain is made worse by activity or exertion and lessened by rest. Patient admits several prior similar episodes over the last 1-2 years. He has not identified any other aggravating or other ameliorating factors for his abdominal pain. In the emergency room he was found to have acute sigmoid diverticulitis with a peridiverticular abscess. Patient was subsequently admitted to the hospital for further evaluation and treatment. 08/04/2018. No acute events overnight. Patient denies any abdominal pain, has had 2 loose bowel movement since yesterday, he is ambulatory, denies any fever, chills, nausea, vomiting, diarrhea, constipation or any urinary symptoms. Reason For Visit: ACUTE SIGMOID DIVERTICULITIS WITH ABSCESS Physical Exam Vital Signs: Temp Pulse Resp BP Pulse Ox 99.0 F 72 15 111/68 97 08/04/18 11:06 08/04/18 11:06 08/04/18 11:06 08/04/18 11:06 08/04/18 11:06 Intake & Output 08/03/18 08/04/18 08/05/18 06:59 06:59 06:59 Intake Total 100 2800 Balance 100 2800 Weight 112.4 kg 111.8 kg General appearance: PRESENT: obese Head exam: PRESENT: atraumatic, normocephalic Neck exam: ABSENT: carotid bruit, JVD, lymphadenopathy, thyromegaly Respiratory exam: PRESENT: clear to auscultation db. ABSENT: rales, rhonchi, wheezes Cardiovascular exam: PRESENT: RRR. ABSENT: diastolic murmur, rubs, systolic murmur GI/Abdominal exam: PRESENT: distended, normal bowel sounds, soft. ABSENT: guarding, mass, organolmegaly, rebound, tenderness Extremities exam: PRESENT: full ROM. ABSENT: calf tenderness, clubbing, pedal edema - trace Neurological exam: PRESENT: alert, awake, oriented to person, oriented to place, oriented to time, oriented to situation, CN II-XII grossly intact. ABSENT: motor sensory deficit Results Laboratory Results: 08/04/18 11:20 08/04/18 04:31 08/04/18 08/04/18 08/04/18 04:31 04:31 11:20 WBC 6.7 6.3 RBC 4.30 L 4.55 Hgb 12.8 L D 13.3 L Hct 37.4 L 39.4 MCV 87 87 MCH 29.7 29.3 MCHC 34.1 33.8 RDW 13.6 13.4 Plt Count 151 175 Seg Neutrophils % 80.4 H 82.5 H Lymphocytes % 10.2 L 9.2 L Monocytes % 8.4 6.9 Eosinophils % 0.7 0.6 Basophils % 0.3 0.8 Absolute Neutrophils 5.3 5.2 Absolute Lymphocytes 0.7 0.6 Absolute Monocytes 0.6 0.4 Absolute Eosinophils 0.0 0.0 Absolute Basophils 0.0 0.1 Sodium 140.5 Potassium 4.4 Chloride 107 Carbon Dioxide 28 Anion Gap 6 BUN 13 Creatinine 0.91 Est GFR ( Amer) > 60 Est GFR (Non-Af Amer) > 60 Glucose 102 Calcium 8.1 L Magnesium 2.2 Impressions: KUB X-Ray 08/02/18 21:07 IMPRESSION: No acute plain film abnormality is identified. Abdomen/Pelvis CT 08/03/18 08:24 IMPRESSION: Contained sigmoid colon diverticular perforation with air pocket al jenni the dorsal aspect of the proximal sigmoid colon. There is trace leakage of oral contrast into the cavity. Surrounding inflammatory change without free intraperitoneal air or well-circumscribed drainable abscess. Findings called to the hospitalist attending physician 08/03/2018 1400 hours. Assessment and Plan - Diagnosis (1) Abscess of sigmoid colon due to diverticulitis Is this a current diagnosis for this admission?: Yes Plan: Possibly secondary to diverticulitis. Continue asymptomatic. Currently n.p.o. on IV fluids and IV antibiotics. Day 3 of IV metronidazole and levofloxacin. Cultures negative. 08/03/2018 CT abdomen with oral contrast positive for contained sigmoid colon diverticular perforation with air pocket along the dorsal aspect of the proximal sigmoid colon. There is trace leakage of oral contrast into the cavity. Surrounding inflammatory change without free intraperitoneal air or well- circumscribed drainable abscess. IR was consulted for percutaneous drainage however they were not able to reach it. Consulted and the recommendation is as follows. Continue IV antibiotics, n.p.o., IV fluids, advance diet in 1 to 2 days low residual, no seed diet and if asymptomatic can be discharged and follow-up as outpatient in 3 to 5 months for colonoscopy, if patient deteriorates and becomes symptomatic he will likely undergo colon resection. (2) Diverticulitis Is this a current diagnosis for this admission?: Yes Plan: As per #1. (3) Obesity Qualifiers: Body mass index: BMI 39.0-39.9 Is this a current diagnosis for this admission?: Yes Plan: Lifestyle modification. (4) Nausea and vomiting Qualifiers: Vomiting type: unspecified Vomiting Intractability: non-intractable Qualified Code(s): R11.2 - Nausea with vomiting, unspecified Is this a current diagnosis for this admission?: Yes Plan: Due to #1. Resolved. PRN antiemetics.
[2018-08-04] MEDS: PANTOPRAZOLE SODIUM 40 MG VIAL IV SCH (12:58)
[2018-08-05] MEDS: PIPERACILLIN SODIUM/TAZOBACTAM 3.375 GM in NORMAL SALINE 100 ML IV SCH ×4 (02:19→21:26)
[2018-08-05] MEDS: METRONIDAZOLE 500 MG/NS RTU 500 MG/100 ML RTUPB IV SCH ×4 (03:12→21:26)
[2018-08-05 05:39] LABS: ABSOLUTE EOSINOPHILS # (AUTO) 0.1 10^3/uL (0.0-0.6); ABSOLUTE LYMPHOCYTES (AUTO) 0.7 10^3/uL (0.5-4.7); ABSOLUTE MONOCYTES (AUTO) 0.4 10^3/uL (0.1-1.4); ABSOLUTE NEUT (AUTO) 3.8 10^3/uL (1.7-8.2); BASOPHILS % (AUTO) 0.9 % (0-2); EOSINOPHILS % (AUTO) 2.1 % (0-6); HEMATOCRIT 36.6 % (37.9-51.0); HEMOGLOBIN 12.4 g/dL (13.5-17.0); LYMPHOCYTES % (AUTO) 14.2 % (13-45); MEAN CORPUSCULAR HEMOGLOBIN 29.6 pg (27.0-33.4); MEAN CORPUSCULAR HGB CONC 33.9 g/dL (32.0-36.0); MEAN CORPUSCULAR VOLUME 87 fl (80-97); MONOCYTES % (AUTO) 8.2 % (3-13); PLATELET COUNT 154 10^3/uL (150-450); RED BLOOD COUNT 4.19 10^6/uL (4.35-5.55); RED CELL DISTRIBUTION WIDTH 13.5 % (11.5-14.0); SEGMENTED NEUTROPHILS % (AUTO) 74.6 % (42-78); TOTAL CELLS COUNTED % (AUTO) 100 %; WHITE BLOOD COUNT 5.1 10^3/uL (4.0-10.5)
[2018-08-05 06:05] LABS: ALANINE AMINOTRANSFERASE 22 U/L (21-72); ALBUMIN 2.8 g/dL (3.5-5.0); ALKALINE PHOSPHATASE 44 U/L (38-126); ANION GAP 7 (5-19); ASPARTATE AMINO TRANSFERASE 12 U/L (17-59); BILIRUBIN,DIRECT 0.3 mg/dL (0.0-0.4); BILIRUBIN,TOTAL 1.4 mg/dL (0.2-1.3); BLOOD UREA NITROGEN 12 mg/dL (7-20); CALCIUM 8.1 mg/dL (8.4-10.2); CARBON DIOXIDE 25 mmol/L (22-30); CHLORIDE 109 mmol/L (98-107); GLUCOSE 95 mg/dL (75-110); POTASSIUM 4.1 mmol/L (3.6-5.0)
[2018-08-05] MEDS: PANTOPRAZOLE SODIUM 40 MG VIAL IV SCH (09:45)
[2018-08-05] MEDS: ENOXAPARIN SODIUM INJ 40 MG/0.4 ML DISP.SYRIN SUBCUT SCH (09:49)
[2018-08-05] MEDS: DOCUSATE SODIUM 100 MG CAPSULE PO SCH ×2 (09:49→18:45)
--- NOTE | 2018-08-05 10:47 | PDOC PROGRESS REPORT ---
Subjective Progress Note for:: 08/05/18 Subjective:: This is a 58-year-old male with acute sigmoid diverticulitis. The patient's left lower quadrant abdominal pain is much improved today. He denies nausea, vomiting, fevers, chills, headache, shortness of breath, dizziness, orthostasis, fatigue, malaise, abdominal distention, or any other symptoms. He is passing flatus. He is ambulating without difficulty. Reason For Visit: ACUTE SIGMOID DIVERTICULITIS WITH ABSCESS Physical Exam Vital Signs: Temp Pulse Resp BP Pulse Ox 97.3 F 65 16 104/59 L 94 08/05/18 08:00 08/05/18 08:00 08/05/18 08:00 08/05/18 08:00 08/05/18 08:00 Intake & Output 08/04/18 08/05/18 08/06/18 06:59 06:59 06:59 Intake Total 2800 800 100 Balance 2800 800 100 Weight 111.8 kg 112.8 kg General appearance: PRESENT: no acute distress, cooperative, obese Head exam: PRESENT: atraumatic, normocephalic Eye exam: PRESENT: PERRLA. ABSENT: scleral icterus Mouth exam: PRESENT: moist, neck supple Teeth exam: ABSENT: poor dentation Neck exam: ABSENT: meningismus, tenderness, thyromegaly, tracheal deviation Cardiovascular exam: PRESENT: RRR Pulses: PRESENT: normal radial pulses GI/Abdominal exam: PRESENT: soft. ABSENT: distended, firm, guarding, rebound, rigid, tenderness Rectal exam: PRESENT: deferred Extremities exam: ABSENT: clubbing Musculoskeletal exam: ABSENT: deformity Neurological exam: PRESENT: alert, awake, oriented to person, oriented to place, oriented to time, oriented to situation, CN II-XII grossly intact Psychiatric exam: ABSENT: agitated, anxious, depressed Focused psych exam: ABSENT: delusional Skin exam: ABSENT: cyanosis, erythema, jaundice Results Laboratory Results: 08/05/18 04:50 08/05/18 04:50 08/04/18 08/05/18 08/05/18 11:20 04:50 04:50 WBC 6.3 5.1 RBC 4.55 4.19 L Hgb 13.3 L 12.4 L Hct 39.4 36.6 L MCV 87 87 MCH 29.3 29.6 MCHC 33.8 33.9 RDW 13.4 13.5 Plt Count 175 154 Seg Neutrophils % 82.5 H 74.6 Lymphocytes % 9.2 L 14.2 Monocytes % 6.9 8.2 Eosinophils % 0.6 2.1 Basophils % 0.8 0.9 Absolute Neutrophils 5.2 3.8 Absolute Lymphocytes 0.6 0.7 Absolute Monocytes 0.4 0.4 Absolute Eosinophils 0.0 0.1 Absolute Basophils 0.1 0.0 Sodium 141.0 Potassium 4.1 Chloride 109 H Carbon Dioxide 25 Anion Gap 7 BUN 12 Creatinine 0.90 Est GFR ( Amer) > 60 Est GFR (Non-Af Amer) > 60 Glucose 95 Calcium 8.1 L Magnesium 2.3 Total Bilirubin 1.4 H AST 12 L ALT 22 Alkaline Phosphatase 44 Total Protein 5.0 L Albumin 2.8 L Impressions: KUB X-Ray 08/02/18 21:07 IMPRESSION: No acute plain film abnormality is identified. Abdomen/Pelvis CT 08/03/18 08:24 IMPRESSION: Contained sigmoid colon diverticular perforation with air pocket along the dorsal aspect of the proximal sigmoid colon. There is trace leakage of oral contrast into the cavity. Surrounding inflammatory change without free intraperitoneal air or well-circumscribed drainable abscess. Findings called to the hospitalist attending physician 08/03/2018 1400 hours. Assessment & Plan - Diagnosis (1) Acute diverticulitis Is this a current diagnosis for this admission?: Yes - Plan Summary Plan Summary: This is a 58-year-old male with acute, uncomplicated diverticulitis. He is im proving with conservative measures. The patient recently had a colonoscopy, less than 1 year ago. It was normal. I have recommended that the patient start a fiber supplement twice daily. This will decrease the chance of recurrence of his diverticulitis. At this time I do not believe the patient will require surgical intervention. I will advance his diet today to full liquids. If he tolerates full liquids well, he should be able to advance to regular diet. If the patient continues to improve with this level of rapidity, anticipate discharge in the very near future. I would recommend a course of home antibiotics that totals 10 days from the onset of symptoms.
--- NOTE | 2018-08-05 16:48 | PDOC PROGRESS REPORT ---
Subjective Progress Note for:: 08/05/18 Subjective:: DAISY CARRERA JR is a 58 year old male who presented to the emergency room with a 1 day history of abdominal pain. Patient admits sudden onset of a severe, sharp stabbing, nonradiating pain in the left lower quadrant pain beginning early in the afternoon of 08/02/2018. He further admits that he actually had symptoms of obstipation on the previous day but was able to have a bowel movement on the morning of the several hours before the onset of his pain. The pain continued throughout the remainder of the day and was accompanied by numerous episodes of nausea and vomiting with associated generalized weakness. Pain is made worse by activity or exertion and lessened by rest. Patient admits several prior similar episodes over the last 1-2 years. He has not identified any other aggravating or other ameliorating factors for his abdominal pain. In the emergency room he was found to have acute sigmoid diverticulitis with a peridiverticular abscess. Patient was subsequently admitted to the hospital for further evaluation and treatment. 08/04/2018. No acute events overnight. Patient denies any abdominal pain, has had 2 loose bowel movement since yesterday, he is ambulatory, denies any fever, chills, nausea, vomiting, diarrhea, constipation or any urinary symptoms. 08/05/2018. No acute events overnight. Patient is symptom-free, ambulatory, having normal bladder function, has had 2 loose bowel movements, started on clear liquid, denies any fever, chills, nausea, vomiting, diarrhea, constipation or any urinary symptoms. Reason For Visit: ACUTE SIGMOID DIVERTICULITIS WITH ABSCESS Physical Exam Vital Signs: Temp Pulse Resp BP Pulse Ox 98.5 F 54 L 15 108/64 96 08/05/18 15:17 08/05/18 15:17 08/05/18 15:17 08/05/18 15:17 08/05/18 15:17 Intake & Output 08/04/18 08/05/18 08/06/18 06:59 06:59 06:59 Intake Total 2800 800 1678 Balance 2800 800 1678 Weight 111.8 kg 112.8 kg General appearance: PRESENT: no acute distress, well-developed, well-nourished Head exam: PRESENT: atraumatic, normocephalic Eye exam: PRESENT: conjunctiva pink, EOMI, PERRLA. ABSENT: scleral icterus Ear exam: PRESENT: normal external ear exam Mouth exam: PRESENT: moist, tongue midline Neck exam: ABSENT: carotid bruit, JVD, lymphadenopathy, thyromegaly Respiratory exam: PRESENT: clear to auscultation db. ABSENT: rales, rhonchi, wheezes Cardiovascular exam: PRESENT: RRR. ABSENT: diastolic murmur, rubs, systolic murmur Pulses: PRESENT: normal dorsalis pedis pul Vascular exam: PRESENT: normal capillary refill GI/Abdominal exam: PRESENT: distended, normal bowel sounds, soft. ABSENT: guarding, mass, organolmegaly, rebound, tenderness Rectal exam: PRESENT: deferred Extremities exam: PRESENT: full ROM. ABSENT: calf tenderness, clubbing, pedal edema Neurological exam: PRESENT: alert, awake, oriented to person, oriented to place, oriented to time, oriented to situation, CN II-XII grossly intact. ABSENT: motor sensory deficit Psychiatric exam: PRESENT: appropriate affect, normal mood. ABSENT: homicidal ideation, suicidal ideation Skin exam: PRESENT: dry, intact, warm. ABSENT: cyanosis, rash Results Laboratory Results: 08/05/18 04:50 08/05/18 04:50 08/05/18 08/05/18 04:50 04:50 WBC 5.1 RBC 4.19 L Hgb 12.4 L Hct 36.6 L MCV 87 MCH 29.6 MCHC 33.9 RDW 13.5 Plt Count 154 Seg Neutrophils % 74.6 Lymphocytes % 14.2 Monocytes % 8.2 Eosinophils % 2.1 Basophils % 0.9 Absolute Neutrophils 3.8 Absolute Lymphocytes 0.7 Absolute Monocytes 0.4 Absolute Eosinophils 0.1 Absolute Basophils 0.0 Sodium 141.0 Potassium 4.1 Chloride 109 H Carbon Dioxide 25 Anion Gap 7 BUN 12 Creatinine 0.90 Est GFR ( Amer) > 60 Est GFR (Non-Af Amer) > 60 Glucose 95 Calcium 8.1 L Magnesium 2.3 Total Bilirubin 1.4 H AST 12 L ALT 22 Alkaline Phosphatase 44 Total Protein 5.0 L Albumin 2.8 L Impressions: KUB X-Ray 08/02/18 21:07 IMPRESSION: No acute plain film abnormality is identified. Abdomen/Pelvis CT 08/03/18 08:24 IMPRESSION: Contained sigmoid colon diverticular perforation with air pocket along the dorsal aspect of the proximal sigmoid colon. There is trace leakage of oral contrast into the cavity. Surrounding inflammatory change without free intraperitoneal air or well-circumscribed drainable abscess. Findings called to the hospitalist attending physician 08/03/2018 1400 hours. Assessment and Plan - Diagnosis (1) Abscess of sigmoid colon due to diverticulitis Is this a current diagnosis for this admission?: Yes Plan: Possibly secondary to diverticulitis. Currently asymptomatic. Started on clear liquid. DC IV fluids. Continue IV antibiotics. Day 4 of IV metronidazole and levofloxacin. Cultures negative. 08/03/2018 CT abdomen with oral contrast positive for contained sigmoid colon diverticular perforation with air pocket along the dorsal aspect of the proximal sigmoid colon. There is trace leakage of oral contrast into the cavity. Surrounding inflammatory change without free intraperitoneal air or well-c ircumscribed drainable abscess. IR was consulted for percutaneous drainage however they were not able to reach it. Consulted and the recommendation is as follows. Continue IV antibiotics, n.p.o., IV fluids, advance diet in 1 to 2 days low residual, no seed diet and if asymptomatic can be discharged and follow-up as outpatient in 3 to 5 months for colonoscopy, if patient deteriorates and becomes symptomatic he will likely undergo colon resection. (2) Diverticulitis Is this a current diagnosis for this admission?: Yes Plan: As per #1. (3) Obesity Qualifiers: Body mass index: BMI 39.0-39.9 Is this a current diagnosis for this admission?: Yes Plan: Lifestyle modification. (4) Nausea and vomiting Qualifiers: Vomiting type: unspecified Vomiting Intractability: non-intractable Qualified Code(s): R11.2 - Nausea with vomiting, unspecified Is this a current diagnosis for this admission?: Yes Plan: Due to #1. Resolved. PRN antiemetics.
[2018-08-05] MEDS: ONDANSETRON HCL INJ/PF 4 MG/2 ML SDV IV PRN (21:04)
[2018-08-06] MEDS: METRONIDAZOLE 500 MG/NS RTU 500 MG/100 ML RTUPB IV SCH ×2 (02:25→10:07)
[2018-08-06] MEDS: PIPERACILLIN SODIUM/TAZOBACTAM 3.375 GM in NORMAL SALINE 100 ML IV SCH ×2 (03:30→10:08)
[2018-08-06] MEDS: ONDANSETRON HCL INJ/PF 4 MG/2 ML SDV IV PRN (04:55)
[2018-08-06 06:10] LABS: ABSOLUTE EOSINOPHILS # (AUTO) 0.1 10^3/uL (0.0-0.6); ABSOLUTE LYMPHOCYTES (AUTO) 0.6 10^3/uL (0.5-4.7); ABSOLUTE MONOCYTES (AUTO) 0.3 10^3/uL (0.1-1.4); ABSOLUTE NEUT (AUTO) 3.8 10^3/uL (1.7-8.2); EOSINOPHILS % (AUTO) 2.5 % (0-6); HEMATOCRIT 36.9 % (37.9-51.0); HEMOGLOBIN 12.7 g/dL (13.5-17.0); LYMPHOCYTES % (AUTO) 11.8 % (13-45); MEAN CORPUSCULAR HEMOGLOBIN 29.8 pg (27.0-33.4); MEAN CORPUSCULAR HGB CONC 34.2 g/dL (32.0-36.0); MEAN CORPUSCULAR VOLUME 87 fl (80-97); PLATELET COUNT 186 10^3/uL (150-450); RED BLOOD COUNT 4.25 10^6/uL (4.35-5.55); RED CELL DISTRIBUTION WIDTH 13.2 % (11.5-14.0); SEGMENTED NEUTROPHILS % (AUTO) 77.7 % (42-78); TOTAL CELLS COUNTED % (AUTO) 100 %; WHITE BLOOD COUNT 4.9 10^3/uL (4.0-10.5)
[2018-08-06 06:35] LABS: ANION GAP 7 (5-19); BLOOD UREA NITROGEN 8 mg/dL (7-20); CALCIUM 8.3 mg/dL (8.4-10.2); CARBON DIOXIDE 26 mmol/L (22-30); CHLORIDE 107 mmol/L (98-107); GLUCOSE 98 mg/dL (75-110); POTASSIUM 4.6 mmol/L (3.6-5.0); SODIUM 139.7 mmol/L (137-145)
[2018-08-06 06:58] LABS: APPEARANCE,URINE CLEAR; BILIRUBIN,URINE NEGATIVE (NEGATIVE); COLOR,URINE YELLOW; GLUCOSE, URINE NEGATIVE (NEGATIVE); KETONES,URINE 20 mg/dL (NEGATIVE); LEUKOCYTE ESTERASE,URINE NEGATIVE (NEGATIVE); NITRITE,URINE NEGATIVE (NEGATIVE); PROTEIN,URINE NEGATIVE (NEGATIVE); URINE SPECIFIC GRAVITY 1.013; UROBILINOGEN,URINE NEGATIVE mg/dL (<2.0)
--- NOTE | 2018-08-06 07:57 | PDOC PROGRESS REPORT ---
Subjective Progress Note for:: 08/06/18 Subjective:: No abdominal pain, clear liquids tolerated, reports diarrhea soon after eating Reason For Visit: ACUTE SIGMOID DIVERTICULITIS WITH ABSCESS Physical Exam Vital Signs: Temp Pulse Resp BP Pulse Ox 97.7 F 77 16 127/63 H 98 08/05/18 23:27 08/05/18 23:27 08/05/18 23:27 08/05/18 23:27 08/05/18 23:27 Intake & Output 08/05/18 08/06/18 08/07/18 06:59 06:59 06:59 Intake Total 800 2418 Balance 800 2418 Weight 112.8 kg 112.8 kg General appearance: PRESENT: no acute distress GI/Abdominal exam: PRESENT: distended, soft Results Laboratory Results: 08/06/18 05:47 08/06/18 05:47 08/06/18 08/06/18 08/06/18 05:47 05:47 06:20 WBC 4.9 RBC 4.25 L Hgb 12.7 L Hct 36.9 L MCV 87 MCH 29.8 MCHC 34.2 RDW 13.2 Plt Count 186 Seg Neutrophils % 77.7 Lymphocytes % 11.8 L Monocytes % 7.0 Eosinophils % 2.5 Basophils % 1.0 Absolute Neutrophils 3.8 Absolute Lymphocytes 0.6 Absolute Monocytes 0.3 Absolute Eosinophils 0.1 Absolute Basophils 0.0 Sodium 139.7 Potassium 4.6 Chloride 107 Carbon Dioxide 26 Anion Gap 7 BUN 8 Creatinine 0.85 Est GFR ( Amer) > 60 Est GFR (Non-Af Amer) > 60 Glucose 98 Calcium 8.3 L Magnesium 2.1 Urine Color Urine Appearance Urine pH Ur Specific [place] Urine Protein Urine Glucose (UA) Urine Ketones Urine Blood Urine Nitrite Ur Leukocyte Esterase Urine RBC (Auto) Stool Occult Blood POSITIVE 08/06/18 06:40 WBC RBC Hgb Hct MCV MCH MCHC RDW Plt Count Seg Neutrophils % Lymphocytes % Monocytes % Eosinophils % Basophils % Absolute Neutrophils Absolute Lymphocytes Absolute Monocytes Absolute Eosinophils Absolute Basophils Sodium Potassium Chloride Carbon Dioxide Anion Gap BUN Creatinine Est GFR ( Amer) Est GFR (Non-Af Amer) Glucose Calcium Magnesium Urine Color YELLOW Urine Appearance CLEAR Urine pH 6.0 Ur Specific [place] 1.013 Urine Protein NEGATIVE Urine Glucose (UA) NEGATIVE Urine Ketones 20 H Urine Blood NEGATIVE Urine Nitrite NEGATIVE Ur Leukocyte Esterase NEGATIVE Urine RBC (Auto) 0 Stool Occult Blood Impressions: KUB X-Ray 08/02/18 21:07 IMPRESSION: No acute plain film abnormality is identified. Abdomen/Pelvis CT 08/03/18 08:24 IMPRESSION: Contained sigmoid colon diverticular perforation with air pocket along the dorsal aspect of the proximal sigmoid colon. There is trace leakage of oral contrast into the cavity. Surrounding inflammatory change without free intraperitoneal air or well-circumscribed drainable abscess. Findings called to the hospitalist attending physician 08/03/2018 1400 hours. Assessment & Plan - Diagnosis (1) Abscess of sigmoid colon due to diverticulitis Is this a current diagnosis for this admission?: Yes - Plan Summary Plan Summary: A/ Perforated, contained sigmoid diverticulitis Patient asymptomatic Diarrhea Normal WBNC abdomen distended, but sof P/ Send stool for C. Difficilis today Advance to low fiber, low residue diet If tolerated and C. Difficilis toxin in the stools is negative, patient can be discharged to home tomorrow: - 10 days worth of oral antibiotics (Augmentin 875 mg po BID with Flagyl 500 mg po TID) - Low residue diet x 1 month (no fresh fruit or vegetables), then can re introduce fibers slowly - Lifetime seed and nut free diet - Follow up with Dr. Corey in 1 month - Probiotic daily and 1 cupo of yogurt daily I will sign off
[2018-08-06] MEDS: DOCUSATE SODIUM 100 MG CAPSULE PO SCH ×2 (10:02→18:25)
[2018-08-06] MEDS: ENOXAPARIN SODIUM INJ 40 MG/0.4 ML DISP.SYRIN SUBCUT SCH (10:02)
[2018-08-06] MEDS: PANTOPRAZOLE SODIUM 40 MG VIAL IV SCH (10:08)
[2018-08-06] MEDS: LACTOBACILLUS ACIDOPHILUS 250 MG TAB PO SCH ×2 (10:09→18:25)
--- NOTE | 2018-08-06 13:55 | PDOC PROGRESS REPORT ---
Subjective Progress Note for:: 08/06/18 Subjective:: DAISY CARRERA JR is a 58 year old male who presented to the emergency room with a 1 day history of abdominal pain. Patient admits sudden onset of a severe, sharp stabbing, nonradiating pain in the left lower quadrant pain beginning early in the afternoon of 08/02/2018. He further admits that he actually had symptoms of obstipation on the previous day but was able to have a bowel movement on the morning of the several hours before the onset of his pain. The pain continued throughout the remainder of the day and was accompanied by numerous episodes of nausea and vomiting with associated generalized weakness. Pain is made worse by activity or exertion and lessened by rest. Patient admits several prior similar episodes over the last 1-2 years. He has not identified any other aggravating or other ameliorating factors for his abdominal pain. In the emergency room he was found to have acute sigmoid diverticulitis with a peridiverticular abscess. Patient was subsequently admitted to the hospital for further evaluation and treatment. 08/04/2018. No acute events overnight. Patient denies any abdominal pain, has had 2 loose bowel movement since yesterday, he is ambulatory, denies any fever, chills, nausea, vomiting, diarrhea, constipation or any urinary symptoms. 08/05/2018. No acute events overnight. Patient is symptom-free, ambulatory, having normal bladder function, has had 2 loose bowel movements, started on clear liquid, denies any fever, chills, nausea, vomiting, diarrhea, constipation or any urinary symptoms. 08/06/2018. No acute events overnight. Patient complaining of diarrhea and nausea otherwise asymptomatic. Surgery has signed off and recommendation is if patient asymptomatic by tomorrow he could be sent home to complete total 10 days of antibiotics and follow-up with Dr. Corey in 1 month. Patient denies any fev er, chills, nausea, vomiting, constipation or any urinary symptoms. Reason For Visit: ACUTE SIGMOID DIVERTICULITIS WITH ABSCESS Physical Exam Vital Signs: Temp Pulse Resp BP Pulse Ox 97.7 F 77 16 127/63 H 98 08/05/18 23:27 08/05/18 23:27 08/05/18 23:27 08/05/18 23:27 08/05/18 23:27 Intake & Output 08/05/18 08/06/18 08/07/18 06:59 06:59 06:59 Intake Total 800 2418 Balance 800 2418 Weight 112.8 kg 112.8 kg General appearance: PRESENT: no acute distress, well-developed, well-nourished Head exam: PRESENT: atraumatic, normocephalic Eye exam: PRESENT: conjunctiva pink, EOMI, PERRLA. ABSENT: scleral icterus Ear exam: PRESENT: normal external ear exam Mouth exam: PRESENT: moist, tongue midline Neck exam: ABSENT: carotid bruit, JVD, lymphadenopathy, thyromegaly Respiratory exam: PRESENT: clear to auscultation db. ABSENT: rales, rhonchi, wheezes Cardiovascular exam: PRESENT: RRR. ABSENT: diastolic murmur, rubs, systolic murmur Pulses: PRESENT: normal dorsalis pedis pul Vascular exam: PRESENT: normal capillary refill GI/Abdominal exam: PRESENT: normal bowel sounds, soft. ABSENT: distended, guarding, mass, organolmegaly, rebound, tenderness Rectal exam: PRESENT: deferred Extremities exam: PRESENT: full ROM. ABSENT: calf tenderness, clubbing, pedal edema Neurological exam: PRESENT: alert, awake, oriented to person, oriented to place, oriented to time, oriented to situation, CN II-XII grossly intact. ABSENT: motor sensory deficit Psychiatric exam: PRESENT: appropriate affect, normal mood. ABSENT: homicidal ideation, suicidal ideation Skin exam: PRESENT: dry, intact, warm. ABSENT: cyanosis, rash Results Laboratory Results: 08/06/18 05:47 08/06/18 05:47 08/06/18 08/06/18 08/06/18 05:47 05:47 06:20 WBC 4.9 RBC 4.25 L Hgb 12.7 L Hct 36.9 L MCV 87 MCH 29.8 MCHC 34.2 RDW 13.2 Plt Count 186 Seg Neutrophils % 77.7 Lymphocytes % 11.8 L Monocytes % 7.0 Eosinophils % 2.5 Basophils % 1.0 Absolute Neutrophils 3.8 Absolute Lymphocytes 0.6 Absolute Monocytes 0.3 Absolute Eosinophils 0.1 Absolute Basophils 0.0 Sodium 139.7 Potassium 4.6 Chloride 107 Carbon Dioxide 26 Anion Gap 7 BUN 8 Creatinine 0.85 Est GFR ( Amer) > 60 Est GFR (Non-Af Amer) > 60 Glucose 98 Calcium 8.3 L Magnesium 2.1 Urine Color Urine Appearance Urine pH Ur Specific Midnight Urine Protein Urine Glucose (UA) Urine Ketones Urine Blood Urine Nitrite Ur Leukocyte Esterase Urine RBC (Auto) Stool Occult Blood POSITIVE 08/06/18 06:40 WBC RBC Hgb Hct MCV MCH MCHC RDW Plt Count Seg Neutrophils % Lymphocytes % Monocytes % Eosinophils % Basophils % Absolute Neutrophils Absolute Lymphocytes Absolute Monocytes Absolute Eosinophils Absolute Basophils Sodium Potassium Chloride Carbon Dioxide Anion Gap BUN Creatinine Est GFR ( Amer) Est GFR (Non-Af Amer) Glucose Calcium Magnesium Urine Color YELLOW Urine Appearance CLEAR Urine pH 6.0 Ur Specific Midnight 1.013 Urine Protein NEGATIVE Urine Glucose (UA) NEGATIVE Urine Ketones 20 H Urine Blood NEGATIVE Urine Nitrite NEGATIVE Ur Leukocyte Esterase NEGATIVE Urine RBC (Auto) 0 Stool Occult Blood Impressions: KUB X-Ray 08/02/18 21:07 IMPRESSION: No acute plain film abnormality is identified. Abdomen/Pelvis CT 08/03/18 08:24 IMPRESSION: Contained sigmoid colon diverticular perforation with air pocket along the dorsal aspect of the proximal sigmoid colon. There is trace leakage of oral contrast into the cavity. Surrounding inflammatory change without free intraperitoneal air or well-circumscribed drainable abscess. Findings called to the hospitalist attending physician 08/03/2018 1400 hours. Assessment and Plan - Diagnosis (1) Abscess of sigmoid colon due to diverticulitis Is this a current diagnosis for this admission?: Yes Plan: Possibly secondary to diverticulitis. Complaining of diarrhea and nausea. Surgery has signed off 08/06/2018. Recommendation is low residue diet for 1 month. Discharge home tomorrow and switch antibiotics to Augmentin metronidazole to complete [address] Corey in 1 month. Day 5 of IV metronidazole and levofloxacin. Switch to Augmentin p.o. and metronidazole p.o. discharge home tomorrow if p.o. tolerant, and C. difficile result is back. Cultures negative. 08/03/2018 CT abdomen with oral contrast positive for contained sigmoid colon diverticular perforation with air pocket along the dorsal aspect of the proximal sigmoid colon. There is trace leakage of oral contrast into the cavity. Surrounding inflammatory change without free intraperitoneal air or well- circumscribed drainable abscess. IR was consulted for percutaneous drainage however they were not able to reach it. Consulted and the recommendation is as follows. Continue IV antibiotics, n.p.o., IV fluids, advance diet in 1 to 2 days low residual, no seed diet and if asymptomatic can be discharged and follow-up as outpatient in 3 to 5 months for colonoscopy, if patient deteriorates and becomes symptomatic he will likely undergo colon resection. (2) Diverticulitis Is this a current diagnosis for this admission?: Yes Plan: As per #1. (3) Obesity Qualifiers: Body mass index: BMI 39.0-39.9 Is this a current diagnosis for this admission?: Yes Plan: Lifestyle modification. (4) Nausea and vomiting Qualifiers: Vomiting type: unspecified Vomiting Intractability: non-intractable Qualified Code(s): R11.2 - Nausea with vomiting, unspecified Is this a current diagnosis for this admission?: Yes Plan: Due to #1. Resolved. PRN antiemetics.
[2018-08-06] MEDS ORDERED: AMOXICILLIN TR/POT CLAVULANATE 500-125 MG TAB PO SCH (14:00)
[2018-08-06] MEDS: METRONIDAZOLE 500 MG TABLET PO SCH ×2 (16:06→21:22)
[2018-08-06] MEDS: AMOXICILLIN TR/POT CLAVULANATE 500-125 MG TAB PO SCH (18:25)
[2018-08-07] MEDS: METRONIDAZOLE 500 MG TABLET PO SCH ×2 (05:19→14:03)
[2018-08-07] MEDS: AMOXICILLIN TR/POT CLAVULANATE 500-125 MG TAB PO SCH (09:44)
[2018-08-07] MEDS: LACTOBACILLUS ACIDOPHILUS 250 MG TAB PO SCH (09:44)
[2018-08-07] MEDS: DOCUSATE SODIUM 100 MG CAPSULE PO SCH (09:44)
[2018-08-07] MEDS: ENOXAPARIN SODIUM INJ 40 MG/0.4 ML DISP.SYRIN SUBCUT SCH (09:48)
[2018-08-07 15:56] VITALS: BP 123/83
--- NOTE | 2018-08-08 22:11 | PDOC DISCHARGE SUMMARY ---
General - Admit/Disc Date/PCP Admission Date/Primary Care Provider: 08/03/18 03:59 ADRIANA BURNS MD Discharge Date: 08/07/18 - Discharge Diagnosis (1) Abdominal pain, left lower quadrant Is this a current diagnosis for this admission?: Yes (2) Abscess of sigmoid colon due to diverticulitis Is this a current diagnosis for this admission?: Yes (3) Acute diverticulitis Is this a current diagnosis for this admission?: Yes (4) Nausea and vomiting Is this a current diagnosis for this admission?: Yes (5) Obesity Is this a current diagnosis for this admission?: Yes - Additional Information Resuscitation Status: Full Code Discharge Diet: As Tolerated, Regular Discharge Activity: Activity As Tolerated, Balance Activity w/Rest Prescriptions: Amox Tr/Potassium Clavulanate [Augmentin "500" Tablet] 1 tab PO BID #20 tablet Lactobacillus Acidophilus [Bacid 250 mg Tablet] 500 mg PO BID #56 tab Metronidazole [Flagyl 500 mg Tablet] 500 mg PO Q8 #30 tablet Ondansetron [Zofran Odt 4 mg Tablet] 1 - 2 tab PO Q4HP PRN #20 tab.rapdis PRN Reason: For Nausea/Vomiting Home Medications: Calcium Carbonate [Calcium] 1,200 mg PO DAILY 08/03/18 Fexofenadine HCl [Catarina] 180 mg PO QAM 08/03/18 Pantoprazole Sodium [Protonix [address] Tablet] 20 mg PO DAILY 08/03/18 Acetaminophen [Tylenol 325 mg Tablet] 650 mg PO Q4HP PRN tablet 08/07/18 Amox Tr/Potassium Clavulanate [Augmentin "500" Tablet] 1 tab PO BID #20 tablet 08/07/18 Lactobacillus Acidophilus [Bacid 250 mg Tablet] 500 mg PO BID #56 tab 08/07/18 Metronidazole [Flagyl 500 mg Tablet] 500 mg PO Q8 #30 tablet 08/07/18 Ondansetron [Zofran Odt 4 mg Tablet] 1 - 2 tab PO Q4HP PRN #20 tab.rapdis 08/07/18 History of Present Illness History of Present Illness: Per H&P by Dr. Rico: DAISY CARRERA JR is a 58 year old male who presented to the emergency room with a 1 day history of abdominal pain. Patient admits sudden onset of a severe, sharp stabbing, nonradiating pain in the left lower quadrant pain beginning early in the afternoon of 08/02/2018. He further admits that he actually had symptoms of obstipation on the previous day but was able to have a bowel movement on the morning of the several hours before the onset of his pain. The pain continued throughout the remainder of the day and was accompanied by numerous episodes of nausea and vomiting with associated generalized weakness. Pain is made worse by activity or exertion and lessened by rest. Patient admits several prior similar episodes over the last 1-2 years. He has not identified any other aggravating or other ameliorating factors for his abdominal pain. In the emergency room he was found to have acute sigmoid diverticulitis with a peridiverticular abscess. Patient was subsequently admitted to the hospital for further evaluation and treatment. Hospital Course Hospital Course: The patient was admitted to the medical floor and placed in npo status. He was supported with IVF, analgesics, and antiemetics as needed. 08/03/2018 CT abdomen with oral contrast positive for contained sigmoid colon diverticular perforation with air pocket along the dorsal aspect of the proximal sigmoid colon. There is trace leakage of oral contrast into the cavity. Surrounding inflammatory change without free intraperitoneal air or well- circumscribed drainable abscess. IR was consulted for percutaneous drainage however they were not able to reach it. Surgery was consulted; recommended conservative measures. Patient was treated with IV antibiotics and diet slowly advanced as tolerated. Recommend continuing low residue diet x 1 month and follow up with Dr. Obrien in 1 month. The patient rapidly improved; requiring minimal analgesics, ambulating without difficulty, and tolerating a regular diet at discharge. He reports continued soft stools 4-5x daily, however notes that he has chronic loose stools and so is not bothered by his current bowel pattern. He is discharged to home with self-care in stable condition. He is advised to follow up with his PCP within 1 week, Dr. Obrien in 1 month, to notify his established GI of his admission and to follow up as directed. He is encouraged to complete the full course of antibiotics and to return to the emergency department as needed for concerning symptoms. Physical Exam Vital Signs: Temp Pulse Resp BP Pulse Ox 98.6 F 73 16 123/83 99 08/07/18 15:51 08/07/18 15:51 08/07/18 15:51 08/07/18 15:51 08/07/18 15:51 Intake & Output 08/06/18 08/07/18 08/08/18 06:59 06:59 06:59 Intake Total 2418 965 400 Balance 2418 965 400 Weight 112.8 kg 112.9 kg General appearance: PRESENT: no acute distress, cooperative, obese, well- developed, well-nourished Head exam: PRESENT: atraumatic, normocephalic Eye exam: PRESENT: conjunctiva pink, EOMI, PERRLA. ABSENT: scleral icterus Ear exam: PRESENT: normal external ear exam Mouth exam: PRESENT: moist, tongue midline Neck exam: ABSENT: carotid bruit, JVD, lymphadenopathy, thyromegaly Respiratory exam: PRESENT: clear to auscultation db. ABSENT: rales, rhonchi, wheezes Cardiovascular exam: PRESENT: RRR. ABSENT: diastolic murmur, rubs, systolic murmur Pulses: PRESENT: normal dorsalis pedis pul Vascular exam: PRESENT: normal capillary refill GI/Abdominal exam: PRESENT: normal bowel sounds, soft. ABSENT: distended, guarding, mass, organolmegaly, rebound, tenderness Rectal exam: PRESENT: deferred Extremities exam: PRESENT: full ROM. ABSENT: calf tenderness, clubbing, pedal edema Neurological exam: PRESENT: alert, awake, oriented to person, oriented to place, oriented to time, oriented to situation, CN II-XII grossly intact. ABSENT: motor sensory deficit Psychiatric exam: PRESENT: appropriate affect, normal mood. ABSENT: homicidal ideation, suicidal ideation Skin exam: PRESENT: dry, intact, warm. ABSENT: cyanosis, rash Results Laboratory Results: 08/06/18 05:47 08/06/18 05:47 Impressions: KUB X-Ray 08/02/18 21:07 IMPRESSION: No acute plain film abnormality is identified. Abdomen/Pelvis CT 08/03/18 08:24 IMPRESSION: Contained sigmoid colon diverticular perforation with air pocket along the dorsal aspect of the proximal sigmoid colon. There is trace leakage of oral contrast into the cavity. Surrounding inflammatory change without free intraperitoneal air or well-circumscribed drainable abscess. Findings called to the hospitalist attending physician 08/03/2018 1400 hours. Qualifiers - * PATIENT BEING DISCHARGED WITH ANY OF THE FOLLOWING DIAGNOSIS: No Acute Heart Failure Is this a Heart Failure Patient?: No Plan Discharge Plan: Follow-up with primary care provider within 1 week. Patient to call Dr. Lee's office and notify him of admission; follow-up as directed. Follow up with surgery, Dr. Corey, in 1 month. Complete course of Augmentin and Flagyl Eat live culture food such as cottage cheese or yogurt. Advance diet slowly as tolerated. Drink plenty of fluids. Return to the emergency department as needed for concerning symptoms. Time Spent: Less than 30 Minutes
== END 2018-08-07 16:35 | disposition home or self-care (01) | DRG 392 ==
LOC: ER 18:41 → EH 08-03 03:59 → 5 08-03 04:52 → 2N 08-07 04:16
PROVIDERS: ADMIT Emergency Medicine; ATTEND Emergency Medicine
DX: K57.20 Diverticulitis of large intestine with perforation and abscess without bleeding (principal); E66.9 Obesity, unspecified; K21.9 Gastro-esophageal reflux disease without esophagitis; Z82.49 Family history of ischemic heart disease and other diseases of the circulatory system; Z68.39 Body mass index [BMI] 39.0-39.9, adult
CPT/HCPCS: 36415; 74018; 74176; 74177; 80048; 80053; 81001; 82272; 83690; 83735; 85025; 85610; 85730; 87040; 87493; 96365; 96375; 96376; 99285; J0610; J1885; J2405; J2543; J3490; J7030; J7042; J7050; S0164

== ENCOUNTER → 2019-04-09 | Outpatient (CLI) | payer BC ==
[2019-04-09 16:58] LABS: ABSOLUTE MONOCYTES (AUTO) 0.8 10^3/uL (0.1-1.4); ABSOLUTE NEUT (AUTO) 7.8 10^3/uL (1.7-8.2); BASOPHILS % (AUTO) 0.4 % (0-2); EOSINOPHILS % (AUTO) 0.2 % (0-6); HEMATOCRIT 44.2 % (37.9-51.0); HEMOGLOBIN 15.3 g/dL (13.5-17.0); MEAN CORPUSCULAR HEMOGLOBIN 30.7 pg (27.0-33.4); MEAN CORPUSCULAR HGB CONC 34.7 g/dL (32.0-36.0); MEAN CORPUSCULAR VOLUME 89 fl (80-97); PLATELET COUNT 187 10^3/uL (150-450); RED BLOOD COUNT 4.99 10^6/uL (4.35-5.55); RED CELL DISTRIBUTION WIDTH 13.2 % (11.5-14.0); SEGMENTED NEUTROPHILS % (AUTO) 81.4 % (42-78); TOTAL CELLS COUNTED % (AUTO) 100 %; WHITE BLOOD COUNT 9.6 10^3/uL (4.0-10.5)
[2019-04-09 17:16] LABS: ANION GAP 6 (5-19); BLOOD UREA NITROGEN 13 mg/dL (7-20); CARBON DIOXIDE 31 mmol/L (22-30); CHLORIDE 97 mmol/L (98-107); GLUCOSE 110 mg/dL (75-110); POTASSIUM 4.4 mmol/L (3.6-5.0)
--- NOTE | 2019-04-09 20:02 | RADIOLOGY REPORT (SQ) ---
EXAM DESCRIPTION: CT ABD/PELVIS WITH IV ORAL COMPLETED DATE/TIME: 04/09/2019 7:39 pm REASON FOR STUDY: K57.30 DVRTCLOS OF LG INT W/O PERFORATION OR ABSCESS W/O BLEEDING K57.30 DVRTCLOS OF LG INT W/O PERFORATION OR ABSCESS W/O BLE R10.32 LEFT LOWER QUADRANT PAIN COMPARISON: 08/03/2018 TECHNIQUE: CT scan of the abdomen and pelvis performed using helical scanning technique with dynamic intravenous contrast injection. Oral contrast. Images reviewed with lung, soft tissue, and bone win dows. Reconstructed coronal and sagittal MPR images reviewed. Delayed images for evaluation of the ur inary system also acquired. All images stored on PACS. All CT scanners at this facility use dose modulation, iterative reconstruction, and/or weight based d osing when appropriate to reduce radiation dose to as low as reasonably achievable (ALARA). [facility]: Dose Right [facility]: CareDose [facility]: Dose Right [facility]: Teradose 4D [facility]: OnMyBlock CONTRAST TYPE AND DOSE: contrast/concentration: Isovue 350.00 mg/ml; Total Contrast Delivered: 100.0 ml; Total Saline Delivered: 72.0 ml RENAL FUNCTION: Not recorded here. Refer to medical technologist chemistry's notes. RADIATION DOSE: CT Rad equipment meets quality standard of care and radiation dose reduction techniq ues were employed. CTDIvol: 20.0 - 21.0 mGy. DLP: 2373 mGy-cm.. LIMITATIONS: None. FINDINGS: LOWER CHEST: No significant findings. No nodules or infiltrates. LIVER: Normal size. No masses. No dilated ducts. SPLEEN: Normal size. No focal lesions. PANCREAS: No masses. No significant calcifications. No adjacent inflammation or peripancreatic fluid collections. Pancreatic duct not dilated. GALLBLADDER: No identified stones by CT criteria. No inflammatory changes to suggest cholecystitis. ADRENAL GLANDS: No significant masses or asymmetry. RIGHT KIDNEY AND URETER: No solid masses. No significant calcifications. No hydronephrosis or hyd roureter. LEFT KIDNEY AND URETER: No solid masses. No significant calcifications. No hydronephrosis or hydr oureter. AORTA AND VESSELS: No aneurysm. No dissection. Renal arteries, SMA, celiac without stenosis. RETROPERITONEUM: No retroperitoneal adenopathy, hemorrhage or masses. BOWEL AND PERITONEAL CAVITY: There is a diverticular abscess arising from the dorsal aspect of the si gmoid colon. An air-fluid level is seen. There is no intraperitoneal free air. APPENDIX: Normal. PELVIS: No mass. No free fluid. Normal bladder. ABDOMINAL WALL: No masses. No hernias. BONES: No significant or acute findings. OTHER: No other significant finding. IMPRESSION: 70 x 23 mm diverticular abscess arising from the dorsal aspect of the sigmoid colon. No free intraperitoneal air. TECHNICAL DOCUMENTATION: JOB ID: [id number] Quality ID # [id number]: Final reports with documentation of one or more dose reduction techniques (e.g., Au tomated exposure control, adjustment of the mA and/or kV according to patient size, use of iterative reconstruction technique) 2010 [employer]- All Rights Reserved Reading location - IP/workstation name: [email or web address]
== END ==
LOC: RAD 16:55
PROVIDERS: ATTEND Internal Medicine Gastroenterology
DX: K57.30 Diverticulosis of large intestine without perforation or abscess without bleeding (principal); R10.32 Left lower quadrant pain
CPT/HCPCS: 36415; 74177; 80048; 85025

== ENCOUNTER 2019-04-29 05:39 | Inpatient (IN) | payer BC ==
[2019-04-26 09:36] LABS: HEMATOCRIT 42.7 % (37.9-51.0); HEMOGLOBIN 14.9 g/dL (13.5-17.0); MEAN CORPUSCULAR HEMOGLOBIN 30.7 pg (27.0-33.4); MEAN CORPUSCULAR VOLUME 88 fl (80-97); PLATELET COUNT 218 10^3/uL (150-450); RED BLOOD COUNT 4.87 10^6/uL (4.35-5.55); RED CELL DISTRIBUTION WIDTH 13.3 % (11.5-14.0); WHITE BLOOD COUNT 4.1 10^3/uL (4.0-10.5)
[2019-04-26 09:58] LABS: ANION GAP 9 (5-19); BLOOD UREA NITROGEN 18 mg/dL (7-20); CALCIUM 8.9 mg/dL (8.4-10.2); CARBON DIOXIDE 28 mmol/L (22-30); CHLORIDE 101 mmol/L (98-107); GLUCOSE 102 mg/dL (75-110); POTASSIUM 4.7 mmol/L (3.6-5.0)
--- NOTE | 2019-04-26 10:18 | RADIOLOGY REPORT (SQ) ---
EXAM DESCRIPTION: CHEST PA/LATERAL COMPLETED DATE/TIME: 04/26/2019 10:06 am REASON FOR STUDY: COUGH,PRE-OP COMPARISON: None. EXAM PARAMETERS: NUMBER OF VIEWS: two views TECHNIQUE: Digital Frontal and Lateral radiographic views of the chest acquired. RADIATION DOSE: NA LIMITATIONS: none FINDINGS: LUNGS AND PLEURA: No opacities, masses or pneumothorax. No pleural effusion. MEDIASTINUM AND HILAR STRUCTURES: No masses or contour abnormalities. HEART AND VASCULAR STRUCTURES: Heart normal size. No evidence for failure. BONES: No acute findings. HARDWARE: None in the chest. OTHER: No other significant finding. IMPRESSION: NO SIGNIFICANT RADIOGRAPHIC FINDING IN THE CHEST. TECHNICAL DOCUMENTATION: JOB ID: [id number] [employer]- All Rights Reserved Reading location - IP/workstation name: [email or web address]
--- NOTE | 2019-04-26 14:51 | EKG REPORT ---
SEVERITY:- OTHERWISE NORMAL ECG - SINUS RHYTHM BORDERLINE LEFT AXIS DEVIATION : Confirmed by: Naomie Garnica MD 26-Apr-2019 14:49:54
[~2019-04-29 05:39] MED LIST: ACETAMINOPHEN 1,000 MG/100 ML RTUPB IV PRN; CEFOXITIN 1 GM/D5W RTU 1 GM/50 ML RTUPB IV PRN; CEFOXITIN SODIUM 2 GM in DEXTROSE 5%-WATER 100 ML IV PRN; IBUPROFEN 800 MG in NORMAL SALINE 250 ML IV PRN; LACTATED RINGERS 1000 ML IV PRN; LIDOCAINE 0.5% INJ-PF (5 MG/ML) 50 ML SDV SUBCUT PRN; PREGABALIN 50 MG CAPSULE PO PRN
[2019-04-29] MEDS ORDERED: PREGABALIN 50 MG CAPSULE ONE (05:49)
[2019-04-29] MEDS ORDERED: LIDOCAINE 2% INJ-PF (20 MG/ML) 10 ML AMPUL ONE (06:45)
[2019-04-29] MEDS ORDERED: PROPOFOL INJ 200 MG/20 ML VIAL IV ONE (06:46)
[2019-04-29] MEDS ORDERED: FENTANYL CITRATE INJ/PF 250 MCG/5 ML AMPULE ONE (06:46)
[2019-04-29] MEDS ORDERED: MIDAZOLAM 2 MG/2 ML INJ ONE (06:46)
[2019-04-29] MEDS ORDERED: HYDROMORPHONE HCL INJ/PF 2 MG/ML AMPULE ONE (06:46)
[2019-04-29] MEDS ORDERED: ACETAMINOPHEN 1,000 MG/100 ML RTUPB IV ONE ×2 (07:20→19:35)
[2019-04-29] MEDS ORDERED: BUPIVACAINE HCL 0.25 % INJ/PF (2.5 MG/1 ML) 30 ML VIAL ONE (07:28)
[2019-04-29] MEDS ORDERED: ONDANSETRON HCL INJ/PF 4 MG/2 ML SDV ONE (09:02)
[2019-04-29] MEDS ORDERED: ROCURONIUM BROMIDE INJ 50 MG/5 ML VIAL IV ONE (09:02)
[2019-04-29] MEDS ORDERED: NEOSTIGMINE METHYLSULFATE 10 MG/10 ML VIAL ONE (09:02)
[2019-04-29] MEDS ORDERED: DEXAMETHASONE SOD PHOSPHATE INJ 4 MG/1 ML VIAL ONE (09:02)
[2019-04-29] MEDS ORDERED: PHENYLEPHRINE HCL INJ/PF 10 MG/1 ML SDV ONE (09:02)
[2019-04-29] MEDS ORDERED: SUCCINYLCHOLINE CHLORIDE INJ 200 MG/10 ML VIAL ONE (09:02)
[2019-04-29] MEDS ORDERED: DIPHENHYDRAMINE HCL 50 MG/ML VIAL IV PRN (13:03)
[2019-04-29] MEDS ORDERED: OXYCODONE-ACETAMINOPHEN 5-325 MG TABLET PO PRN ×2 (13:03)
[2019-04-29] MEDS ORDERED: PROMETHAZINE HCL INJ 25 MG/1 ML VIAL IV PRN (13:03)
[2019-04-29] MEDS ORDERED: ONDANSETRON HCL INJ/PF 4 MG/2 ML SDV IV PRN ×2 (13:03→13:43)
[2019-04-29] MEDS ORDERED: MEPERIDINE HCL/PF INJ 25 MG/1 ML DISP.SYRIN IV PRN (13:03)
[2019-04-29] MEDS ORDERED: FENTANYL CITRATE INJ/PF 100 MCG/2 ML AMPUL IV PRN ×3 (13:03)
[2019-04-29] MEDS ORDERED: MORPHINE SULFATE 10 MG/ML INJ IV PRN ×2 (13:03→13:43)
[2019-04-29] MEDS: HYDROMORPHONE HCL INJ/PF 2 MG/ML AMPULE ONE ×2 (14:00→14:10)
[2019-04-29] MEDS ORDERED: KETOROLAC TROMETHAMINE INJ/PF 30 MG/1 ML SDV ONE (15:53)
[2019-04-29] MEDS: ACETAMINOPHEN 1,000 MG/100 ML RTUPB IV SCH ×2 (16:00→21:15)
[2019-04-29] MEDS: KETOROLAC TROMETHAMINE INJ/PF 30 MG/1 ML SDV IV SCH ×2 (16:00→21:15)
[2019-04-29] MEDS: CEFOXITIN SODIUM 2 GM in DEXTROSE 5%-WATER 100 ML IV SCH (16:15)
[2019-04-29] MEDS: FAMOTIDINE INJ/PF 20 MG/2 ML SDV IV SCH (21:16)
[2019-04-29] MEDS: DEXTROSE 5%-LACTATED RINGERS 1,000 ML IV PRN (23:04)
[2019-04-30] MEDS: CEFOXITIN SODIUM 2 GM in DEXTROSE 5%-WATER 100 ML IV SCH (01:23)
[2019-04-30] MEDS: ACETAMINOPHEN 1,000 MG/100 ML RTUPB IV SCH ×3 (05:22→21:21)
[2019-04-30] MEDS: KETOROLAC TROMETHAMINE INJ/PF 30 MG/1 ML SDV IV SCH ×3 (05:22→21:21)
[2019-04-30 05:45] LABS: ABSOLUTE LYMPHOCYTES (AUTO) 0.7 10^3/uL (0.5-4.7); ABSOLUTE MONOCYTES (AUTO) 0.7 10^3/uL (0.1-1.4); ABSOLUTE NEUT (AUTO) 6.4 10^3/uL (1.7-8.2); BASOPHILS % (AUTO) 0.2 % (0-2); EOSINOPHILS % (AUTO) 0.1 % (0-6); HEMATOCRIT 36.9 % (37.9-51.0); HEMOGLOBIN 12.8 g/dL (13.5-17.0); LYMPHOCYTES % (AUTO) 8.6 % (13-45); MEAN CORPUSCULAR HEMOGLOBIN 30.7 pg (27.0-33.4); MEAN CORPUSCULAR HGB CONC 34.8 g/dL (32.0-36.0); MEAN CORPUSCULAR VOLUME 88 fl (80-97); MONOCYTES % (AUTO) 9.1 % (3-13); PLATELET COUNT 190 10^3/uL (150-450); RED BLOOD COUNT 4.18 10^6/uL (4.35-5.55); RED CELL DISTRIBUTION WIDTH 13.1 % (11.5-14.0); TOTAL CELLS COUNTED % (AUTO) 100 %; WHITE BLOOD COUNT 7.8 10^3/uL (4.0-10.5)
[2019-04-30 06:21] LABS: BLOOD UREA NITROGEN 10 mg/dL (7-20); CARBON DIOXIDE 28 mmol/L (22-30); CHLORIDE 104 mmol/L (98-107); GLUCOSE 120 mg/dL (75-110); POTASSIUM 4.3 mmol/L (3.6-5.0)
[2019-04-30 06:29] LABS: ANION GAP 4 (5-19)
[2019-04-30] MEDS: DEXTROSE 5%-LACTATED RINGERS 1,000 ML IV PRN ×2 (06:29→17:11)
[2019-04-30] MEDS: ENOXAPARIN SODIUM INJ 40 MG/0.4 ML DISP.SYRIN SUBCUT SCH (10:58)
[2019-04-30] MEDS: FAMOTIDINE INJ/PF 20 MG/2 ML SDV IV SCH ×2 (11:01→21:22)
--- NOTE | 2019-04-30 16:36 | PDOC PROGRESS REPORT ---
Subjective Progress Note for:: 04/30/19 Reason For Visit: K57.80 DVTRCLI OF INTEST, PART UNSP, W PERF AND AB Physical Exam Vital Signs: Temp Pulse Resp BP Pulse Ox 98.3 F 87 16 106/62 99 04/30/19 08:00 04/30/19 08:00 04/30/19 08:00 04/30/19 08:00 04/30/19 08:00 Intake & Output 04/29/19 04/30/19 05/01/19 06:59 06:59 06:59 Intake Total 0 6180 100 Output Total 1925 Balance 0 4255 100 Weight 97.5 kg Results Laboratory Results: 04/30/19 05:04 04/30/19 05:04 04/30/19 04/30/19 05:04 05:04 WBC 7.8 RBC 4.18 L Hgb 12.8 L Hct 36.9 L MCV 88 MCH 30.7 MCHC 34.8 RDW 13.1 Plt Count 190 Seg Neutrophils % 82.0 H Sodium 136.1 L Potassium 4.3 Chloride 104 Carbon Dioxide 28 Anion Gap 4 L BUN 10 Creatinine 0.73 Est GFR ( Amer) > 60 Glucose 120 H Calcium 8.0 L Impressions: Chest X-Ray 04/26/19 00:00 IMPRESSION: NO SIGNIFICANT RADIOGRAPHIC FINDING IN THE CHEST. Assessment & Plan - Diagnosis (1) Abscess of sigmoid colon due to diverticulitis Is this a current diagnosis for this admission?: Yes - Time Time Spent with patient: Less than 15 minutes - Plan Summary Plan Summary: This is a 59-year-old male status post laparoscopic sigmoid colectomy for recurrent, complicated diverticulitis. The patient is doing well today. His pain is reasonably well controlled. He is ambulating in the hallways. I will remove his Calloway catheter. He is not passing any flatus at this time. Maintain IV fluids. Maintain full liquid diet for now. Ambulate in the hallways, aggressive pulmonary toilet. Awaiting bowel function. Continue current pain medication regimen.
[2019-04-30] MEDS: PANTOPRAZOLE SODIUM 40 MG VIAL IV SCH (17:07)
[2019-05-01] MEDS: DEXTROSE 5%-LACTATED RINGERS 1,000 ML IV PRN ×3 (03:17→18:30)
[2019-05-01] MEDS: ACETAMINOPHEN 1,000 MG/100 ML RTUPB IV SCH ×3 (05:19→21:19)
[2019-05-01] MEDS: KETOROLAC TROMETHAMINE INJ/PF 30 MG/1 ML SDV IV SCH ×3 (05:19→21:19)
[2019-05-01 05:28] LABS: ABSOLUTE LYMPHOCYTES (AUTO) 0.7 10^3/uL (0.5-4.7); ABSOLUTE MONOCYTES (AUTO) 0.5 10^3/uL (0.1-1.4); ABSOLUTE NEUT (AUTO) 4.1 10^3/uL (1.7-8.2); BASOPHILS % (AUTO) 0.3 % (0-2); EOSINOPHILS % (AUTO) 0.8 % (0-6); HEMATOCRIT 36.6 % (37.9-51.0); HEMOGLOBIN 12.7 g/dL (13.5-17.0); LYMPHOCYTES % (AUTO) 12.6 % (13-45); MEAN CORPUSCULAR HEMOGLOBIN 30.5 pg (27.0-33.4); MEAN CORPUSCULAR HGB CONC 34.8 g/dL (32.0-36.0); MEAN CORPUSCULAR VOLUME 88 fl (80-97); MONOCYTES % (AUTO) 9.5 % (3-13); PLATELET COUNT 161 10^3/uL (150-450); RED BLOOD COUNT 4.17 10^6/uL (4.35-5.55); RED CELL DISTRIBUTION WIDTH 12.9 % (11.5-14.0); SEGMENTED NEUTROPHILS % (AUTO) 76.8 % (42-78); TOTAL CELLS COUNTED % (AUTO) 100 %; WHITE BLOOD COUNT 5.4 10^3/uL (4.0-10.5)
[2019-05-01 05:53] LABS: BLOOD UREA NITROGEN 8 mg/dL (7-20); CALCIUM 7.9 mg/dL (8.4-10.2); GLUCOSE 119 mg/dL (75-110); POTASSIUM 4.1 mmol/L (3.6-5.0)
[2019-05-01 06:00] LABS: CARBON DIOXIDE 29 mmol/L (22-30); CHLORIDE 104 mmol/L (98-107)
[2019-05-01 06:07] LABS: ANION GAP 4 (5-19)
[2019-05-01] MEDS: FAMOTIDINE INJ/PF 20 MG/2 ML SDV IV SCH ×2 (09:45→21:19)
[2019-05-01] MEDS: ENOXAPARIN SODIUM INJ 40 MG/0.4 ML DISP.SYRIN SUBCUT SCH (09:45)
--- NOTE | 2019-05-01 15:21 | PDOC PROGRESS REPORT ---
Subjective Progress Note for:: 05/01/19 Reason For Visit: K57.80 DVTRCLI OF INTEST, PART UNSP, W PERF AND AB Physical Exam Vital Signs: Temp Pulse Resp BP Pulse Ox 98.1 F 73 16 126/71 H 96 05/01/19 07:19 05/01/19 07:19 05/01/19 07:19 05/01/19 07:19 05/01/19 07:19 Intake & Output 04/30/19 05/01/19 05/02/19 06:59 06:59 06:59 Intake Total 6180 2770 1100 Output Total 1925 980 Balance 4255 1790 1100 Weight 97.5 kg Results Laboratory Results: 05/01/19 04:22 05/01/19 04:22 05/01/19 05/01/19 04:22 04:22 WBC 5.4 RBC 4.17 L Hgb 12.7 L Hct 36.6 L MCV 88 MCH 30.5 MCHC 34.8 RDW 12.9 Plt Count 161 Seg Neutrophils % 76.8 Sodium 136.7 L Potassium 4.1 Chloride 104 Carbon Dioxide 29 Anion Gap 4 L BUN 8 Creatinine 0.67 Est GFR ( Amer) > 60 Glucose 119 H Calcium 7.9 L Impressions: Chest X-Ray 04/26/19 00:00 IMPRESSION: NO SIGNIFICANT RADIOGRAPHIC FINDING IN THE CHEST. Assessment & Plan - Diagnosis (1) Abscess of sigmoid colon due to diverticulitis Is this a current diagnosis for this admission?: Yes - Time Time Spent with patient: Less than 15 minutes - Plan Summary Plan Summary: This is a 59-year-old male status post laparoscopic sigmoid colon resection for complicated diverticulitis. The patient is doing well today. He reported nausea last night, but denies any vomiting. He had a small bloody bowel movement this morning, and has passed a large amount of flatus. The patient still appears distended clinically. I will maintain full liquids for today. Continue with ambulation. If the patient continues passing flatus, and his abdomen is less distended tomorrow, I may advance his diet. Will follow closely. Continue with aggressive pulmonary toilet.
[2019-05-01] MEDS: PANTOPRAZOLE SODIUM 40 MG VIAL IV SCH (21:19)
[2019-05-02] MEDS: DEXTROSE 5%-LACTATED RINGERS 1,000 ML IV PRN (03:54)
[2019-05-02] MEDS: ACETAMINOPHEN 1,000 MG/100 ML RTUPB IV SCH (05:07)
[2019-05-02] MEDS: KETOROLAC TROMETHAMINE INJ/PF 30 MG/1 ML SDV IV SCH (05:07)
[2019-05-02] MEDS: FAMOTIDINE INJ/PF 20 MG/2 ML SDV IV SCH (09:48)
[2019-05-02] MEDS: ENOXAPARIN SODIUM INJ 40 MG/0.4 ML DISP.SYRIN SUBCUT SCH (09:48)
[2019-05-02] MEDS ORDERED: ONDANSETRON HCL INJ/PF 4 MG/2 ML SDV IV PRN (10:30)
[2019-05-02] MEDS ORDERED: HYDROCODONE/ACETAMINOPHEN 10-325 MG TABLET PO PRN (12:53)
--- NOTE | 2019-05-02 13:01 | PDOC PROGRESS REPORT ---
Subjective Progress Note for:: 05/02/19 Reason For Visit: K57.80 DVTRCLI OF INTEST, PART UNSP, W PERF AND AB Physical Exam Vital Signs: Temp Pulse Resp BP Pulse Ox 97.9 F 72 16 130/78 H 99 05/02/19 12:00 05/02/19 12:00 05/02/19 12:00 05/02/19 12:00 05/02/19 12:00 Intake & Output 05/01/19 05/02/19 05/03/19 06:59 06:59 06:59 Intake Total 2770 4075 Output Total 980 Balance 1790 4075 Results Laboratory Results: 05/01/19 04:22 05/01/19 04:22 Impressions: Chest X-Ray 04/26/19 00:00 IMPRESSION: NO SIGNIFICANT RADIOGRAPHIC FINDING IN THE CHEST. Assessment & Plan - Diagnosis (1) Abscess of sigmoid colon due to diverticulitis Is this a current diagnosis for this admission?: Yes - Time Time Spent with patient: Less than 15 minutes - Plan Summary Plan Summary: This is a 59-year-old male status post laparoscopic sigmoid colon resection for complicated diverticulitis. The patient is doing well today. He denies nausea or vomiting. He continues to pass a large amount of flatus. I will advance his diet as he tolerates. Will continue to follow closely. Continue with aggressive pulmonary toilet. Continue with ambulation.
[2019-05-02] MEDS ORDERED: LORATADINE 10 MG TABLET PO PRN (13:05)
[2019-05-02] MEDS: IBUPROFEN 800 MG TABLET PO SCH (16:11)
[2019-05-02] MEDS: PANTOPRAZOLE SODIUM 40 MG TABLET.DR PO SCH (16:11)
[2019-05-02] MEDS ORDERED: ACETAMINOPHEN 325 MG TABLET PO PRN (21:36)
[2019-05-02] MEDS ORDERED: IMIPRAMINE HCL 25 MG TABLET PO SCH (22:00)
[2019-05-03] MEDS ORDERED: CALCIUM CARBONATE 500 MG TABLET PO SCH (08:00)
[2019-05-03] MEDS: IBUPROFEN 800 MG TABLET PO SCH ×2 (08:06→12:29)
[2019-05-03] MEDS: ENOXAPARIN SODIUM INJ 40 MG/0.4 ML DISP.SYRIN SUBCUT SCH (09:57)
[2019-05-03] MEDS ORDERED: (PENDING PHARMACY ID) (Calcium Carbonate [Calcium] 1,200 MG) PO SCH (10:00)
[2019-05-03 12:46] VITALS: BP 116/72
[2019-05-03] MEDS ORDERED: HYDROCODONE/ACETAMINOPHEN 10-325 MG TABLET PO PRN (13:44)
--- NOTE | 2019-05-03 14:12 | PDOC DISCHARGE SUMMARY ---
General - Admit/Disc Date/PCP Admission Date/Primary Care Provider: 04/29/19 05:39 ADRIANA BURNS MD Discharge Date: 05/03/19 - Discharge Diagnosis Final Diagnosis: History of perforated diverticulitis. Intra-abdominal, mesenteric abscess. - Assessment Summary: There is a 59-year-old male with a history of complicated diverticulitis. The patient was found to have a persistent and/or recurrent mesenteric abscess. The patient was then taken to the operating room for definitive surgical treatment. The patient underwent laparoscopic sigmoid colectomy with primary anastomosis. Patient was taken to the floor in stable condition. The patient did well after surgery. He slowly began ambulating, tolerating a diet, and his pain was controlled with oral pain medications. By 05/03/2019, it was felt that the patient reached maximal hospital benefit. At this time he is fit for discharge. - Additional Information Resuscitation Status: Full Code Discharge Diet: As Tolerated Discharge Activity: No Lifting Over 10 Pounds, No Lifting/Push/Pulling Referrals: FRANCES MADRID MD [ACTIVE STAFF] - 05/14/19 8:00 am Prescriptions: Ibuprofen [Motrin 800 mg Tablet] 800 mg PO MEALS #42 tablet Home Medications: Fexofenadine HCl [Catarina] 180 mg PO DAILYP PRN 08/03/18 Pantoprazole Sodium [Protonix [address] Tablet] 20 mg PO QHS 08/03/18 Imipramine HCl [Tofranil 25 mg Tablet] 25 mg PO QHS 04/26/19 Ibuprofen [Motrin 800 mg Tablet] 800 mg PO MEALS #42 tablet 05/03/19 Loratadine [Claritin 10 mg Tablet] 10 mg PO DAILYP PRN tablet 05/03/19 Additional Information: Discharge home. Diet as tolerated. Activity: No lifting greater than 10 pounds x 6 weeks. Follow-up with me in 7 to 10 days at [facility]. Motrin 800 mg p.o. 3 times daily with meals. Okay to shower. No tub baths, swimming pools, or hot tubs for 2 weeks. History of Present Illiness History of Present Illness: DAISY CARRERA JR is a 59 year old male Physical Exam Vital Signs: Temp Pulse Resp BP Pulse Ox 98.3 F 81 16 116/72 96 05/03/19 12:00 05/03/19 12:00 05/03/19 12:00 05/03/19 12:00 05/03/19 12:00 Intake & Output 05/02/19 05/03/19 05/04/19 06:59 06:59 06:59 Intake Total 4075 2845 260 Balance 4075 2845 260 Results Laboratory Results: WBC 5.4 10^3/uL (4.0-10.5) 05/01/19 04:22 RBC 4.17 10^6/uL (4.35-5.55) L 05/01/19 04:22 Hgb 12.7 g/dL (13.5-17.0) L 05/01/19 04:22 Hct 36.6 % (37.9-51.0) L 05/01/19 04:22 MCV 88 fl (80-97) 05/01/19 04:22 MCH 30.5 pg (27.0-33.4) 05/01/19 04:22 MCHC 34.8 g/dL (32.0-36.0) 05/01/19 04:22 RDW 12.9 % (11.5-14.0) 05/01/19 04:22 Plt Count 161 10^3/uL (150-450) 05/01/19 04:22 Lymph % (Auto) 12.6 % (13-45) L 05/01/19 04:22 Dubois % (Auto) 9.5 % (3-13) 05/01/19 04:22 Eos % (Auto) 0.8 % (0-6) 05/01/19 04:22 Baso % (Auto) 0.3 % (0-2) 05/01/19 04:22 Absolute Neuts (auto) 4.1 10^3/uL (1.7-8.2) 05/01/19 04:22 Absolute Lymphs (auto) 0.7 10^3/uL (0.5-4.7) 05/01/19 04:22 Absolute Monos (auto) 0.5 10^3/uL (0.1-1.4) 05/01/19 04:22 Absolute Eos (auto) 0.0 10^3/uL (0.0-0.6) 05/01/19 04:22 Absolute Basos (auto) 0.0 10^3/uL (0.0-0.2) 05/01/19 04:22 Seg Neutrophils % 76.8 % (42-78) 05/01/19 04:22 Sodium 136.7 mmol/L (137-145) L 05/01/19 04:22 Potassium 4.1 mmol/L (3.6-5.0) 05/01/19 04:22 Chloride 104 mmol/L (98-107) 05/01/19 04:22 Carbon Dioxide 29 mmol/L (22-30) 05/01/19 04:22 Anion Gap 4 (5-19) L 05/01/19 04:22 BUN 8 mg/dL (7-20) 05/01/19 04:22 Creatinine 0.67 mg/dL (0.52-1.25) 05/01/19 04:22 Est GFR ( Amer) > 60 (>60) 05/01/19 04:22 Est GFR (MDRD) Non-Af > 60 (>60) 05/01/19 04:22 Glucose 119 mg/dL (75-110) H 05/01/19 04:22 Calcium 7.9 mg/dL (8.4-10.2) L 05/01/19 04:22 Blood Type A NEGATIVE 04/29/19 06:42 Antibody Screen NEGATIVE 04/29/19 06:42 Impressions: Chest X-Ray 04/26/19 00:00 IMPRESSION: NO SIGNIFICANT RADIOGRAPHIC FINDING IN THE CHEST.
[2019-05-03] MEDS: PANTOPRAZOLE SODIUM 40 MG TABLET.DR PO SCH (16:57)
--- NOTE | 2019-05-07 11:08 | Operative Report ---
Nonrecallable Operative Report DATE OF SURGERY: 04/29/19 PREOPERATIVE DIAGNOSIS: Complicated sigmoid diverticulitis, including a pericolonic/mesenteric abscess POSTOPERATIVE DIAGNOSIS: Same as above OPERATION: 1. Laparoscopic lysis of adhesions. 2. Laparoscopic sigmoid colectomy with stapled EEA anastomosis. 3. Laparoscopic splenic flexure mobilization. 4. Flexible sigmoidoscopy. SURGEON: FRANCES MADRID ANESTHESIA: GA TISSUE REMOVED OR ALTERED: Sigmoid colectomy COMPLICATIONS: None apparent ESTIMATED BLOOD LOSS: 200 cc PROCEDURE: Drains/implants: None. Procedure in detail: After informed consent was obtained, the patient was brought to the operating room and laid in the supine position. The area of the abdomen was prepped and draped in a normal sterile fashion. An incision was created in the supraumbilical position. Dissection was carried through the subcutaneous tissues using sharp and blunt dissection. The anterior sheath was incised sharply, the posterior sheath was incised sharply, the abdomen was entered sharply, the balloon trocar was inserted, and pneumoperitoneum was achieved. A right lower quadrant 12 mm trocar was then placed under direct laparoscopic visualization. The abdomen was then surveyed. There was a large amount of intra-abdominal adhesions in the lower midline. Lysis of adhesions was then undertaken laparoscopically. A large amount of omental and small bowel adhesions were lysed in order to fully visualize the sigmoid colon. During this process, another right upper quadrant 5 mm trocar was placed, as well as a left mid abdominal 5 mm trocar, and a suprapubic 5 mm trocar. Lysis of adhesions took approximately 1 hour. Once the lysis of adhesions was completed, the patient was placed into the Trendelenburg position. A fan retractor was used to retract the small bowel out of the pelvis. Next, the sigmoid colon was elevated and rotated medially. A lateral to medial dissection was then undertaken. The white line of Toldt was divided proximally, and the sigmoid and descending colon were rotated medially. The ureter was identified and spared along its course. After the ureter was identified, a harmonic scalpel was used to divide the mesentery of the sigmoid colon. Next, an [place] 60 stapler with a blue load was used to divide the sigmoid colon at the rectosigmoid junction. Division of the mesentery was then continued proximally, to free the inflamed sigmoid colon. There was a large amount of mesenteric and colonic inflammation present. This was completely freed. Owing to the large amount of inflamed colon, it was felt that mobilization of the splenic flexure would be required in order to the colon to the rectum. Attention was then turned to freeing of the splenic flexure. The patient was placed in reverse-Trendelenburg positioning. The omentum was then freed from the transverse colon using a mixture of harmonic scalpel and sharp dissection. Dissection was carried laterally along the transverse colon, freeing the splenocolic ligament. Once the transverse colon was freed, the splenic flexure of the colon was adequately mobilized, and adequate length was obtained. After this was completed, a lower midline incision was created, for specimen extraction. The linea alba fascia was incised, and the Lawrence wound retractor was placed into the wound. The wound retractor was tightened, and the sigmoid colon was brought out through the incision. The inflamed area was then resected, by dividing the descending colon in an area that had good blood flow. Next, the 29 EEA anvil was placed into the descending colon. It was sewn into place using 2-0 Vicryl suture in pursestring fashion. The descending colon and EEA anvil stretched into the pelvis easily. There did not appear to be any tension. Next, the 29 EEA stapler was inserted into the rectum and passed up to the rectosigmoid junction. The spike was then deployed through the anterior portion of the rectum. The anvil was to the spike, tightened, and the stapler was fired according to program manager rn recommendation. The stapler was then removed from the patient, and opened on the back table. 2 complete doughnut rings were found within the stapler. Once this was confirmed, the anastomosis was tested. A bowel clamp was placed proximal to the anastomosis. A flexible sigmoidoscope was then inserted into the rectum, and passed up to the level of the anastomosis. The anastomosis appeared to be intact, visually. Air was insufflated into the rectum. Air was found to escape through the anus, around the scope. No air was seen escaping into the abdominal cavity, through the anastomosis. This ensured that the anastomosis was air and watertight. The sigmoidoscope was then removed from the patient, and I scrubbed back into the case. The abdomen was copiously irrigated and suctioned. Pneumoperitoneum was then reinstated. The right lower quadrant trocar was removed. The defect was closed using the Humphrey-Marianela device and 0 Vicryl suture. The supraumbilical trocar site was closed using 0 Prolene suture in [id number] fashion with the aid of the Humphrey-Marianela device (due to a history of umbilical hernia surgery in this area). Next, the Lawrence wound retractor was removed, and the lower midline incision was closed using #1 PDS suture in simple running fashion. The overlying skin was then closed using skin babatunde. Dressings were placed, and the procedure was concluded. All sponge, instrument, and needle counts were correct x2. Condition: Stable.
== END 2019-05-03 16:56 | disposition home or self-care (01) | DRG 331 ==
LOC: INOR 05:39 → EDSTATUS 07:30 → 4N 16:53
PROVIDERS: ADMIT Surgery; ATTEND Surgery
PROC: 0DNU4ZZ Release Omentum, Percutaneous Endoscopic Approach (ICD-10-PCS; 2019-04-29)
PROC: 0DNV4ZZ Release Mesentery, Percutaneous Endoscopic Approach (ICD-10-PCS; 2019-04-29)
PROC: 0DN84ZZ Release Small Intestine, Percutaneous Endoscopic Approach (ICD-10-PCS; 2019-04-29)
PROC: 0DTN4ZZ Resection of Sigmoid Colon, Percutaneous Endoscopic Approach (ICD-10-PCS; principal; 2019-04-29 07:30)
DX: K57.80 Diverticulitis of intestine, part unspecified, with perforation and abscess without bleeding (principal); K21.9 Gastro-esophageal reflux disease without esophagitis; K66.0 Peritoneal adhesions (postprocedural) (postinfection)
CPT/HCPCS: 36415; 71046; 80048; 840; 85025; 85027; 86850; 86900; 86901; 88305; 93005; 93010; 94799; C9113; J0131; J0330; J0694; J1100; J1170; J1650; J1741; J1885; J2250; J2270; J2370; J2405; J2704; J2710; J3010; J3490; J7050; J7060; J7121; S0028

== ENCOUNTER 2019-05-11 11:30 | Observation (INO) | payer BC ==
[2019-05-11] MEDS ORDERED: ONDANSETRON HCL INJ/PF 4 MG/2 ML SDV IV ONE ×2 (11:46→13:34)
[2019-05-11] MEDS ORDERED: NORMAL SALINE 1000 ML 1,000 ML IV ONE ×2 (11:46→14:58)
--- NOTE | 2019-05-11 11:48 | ER Document Report ---
ED Medical Screen (RME) - General Chief Complaint: Abdominal Pain Stated Complaint: VOMITING Time Seen by Provider: 05/11/19 11:39 Primary Care Provider: ADRIANA BURNS MD [Primary Care Provider] - Follow up as needed Mode of Arrival: Ambulatory Information source: Patient Notes: Patient is a 59-year-old male presenting to emergency department with chief complaint of vomiting. Patient reports he had a bowel resection done on 04/[address] Corey. He states that he was discharged from the hospital on 05/03. He states things were going well until yesterday when he began vomiting. He states he has been vomiting through the night without relief. He reports feeling a lot of gas pains in his abdomen but denies passing any gas through the rectum. He did have a small bowel movement yesterday and one this morning. He reports the vomit has a foul taste to it and is dark brown. Exam: Laparoscopic sites appear to be healing well, one is covered by bandage, bandage was not removed in triage. I have greeted and performed a rapid initial assessment of this patient. A comprehensive ED assessment and evaluation of the patient, analysis of test results and completion of the medical decision making process will be conducted by additional ED providers. I have specifically instructed the patient or family members with the patient to immediately return to any nursing staff should anything change in the patient's condition or with their chief complaint. TRAVEL OUTSIDE OF THE [place] IN LAST 30 DAYS: No - Related Data Allergies/Adverse Reactions: No Known Allergies Allergy (Verified 05/11/19 11:41) Past Medical History - Social History Chew tobacco use (# tins/day): No Frequency of alcohol use: None Drug Abuse: None, Bath salts - Past Medical History Cardiac Medical History: Denies: Hx Coronary Artery Disease, Hx Heart Attack, Hx Hypertension, Hx Pulmonary Embolism Pulmonary Medical History: Reports: Hx Asthma - MILD, Hx Sleep Apnea - CPAP NOT NECESSARY AT THIS TIME Denies: Hx Bronchitis, Hx COPD, Hx Pneumonia, Hx Respiratory Failure, Hx Tuberculosis Neurological Medical History: Denies: Hx Cerebrovascular Accident, Hx Seizures Endocrine Medical History: Denies: Hx Diabetes Mellitus Type 1, Hx Diabetes Mellitus Type 2, Hx Hyperthyroidism, Hx Hypothyroidism Renal/ Medical History: Denies: Hx Peritoneal Dialysis Malignancy Medical History: Denies Hx Lung Cancer GI Medical History: Reports: Hx Gastroesophageal Reflux Disease - PO MEDS, Hx Hiatal Hernia. Denies: Hx Cirrhosis, Hx Crohn's Disease, Hx Diverticulitis, Hx Hepatitis, Hx Irritable Bowel, Hx Liver Failure, Hx Pancreatitis, Hx Ulcer, Hx Ulcerative Colitis Musculoskeltal Medical History: Denies Hx Arthritis, Denies Hx Gout Skin Medical History: Denies Hx Eczema, Denies Hx Psoriasis Psychiatric Medical History: Denies: Hx Depression Infectious Medical History: Denies: Hx Hepatitis Past Surgical History: Reports: Hx Abdominal Surgery - umbilical hernia, Hx Herniorrhaphy - UMBILICAL HERNIA, Hx Nose Surgery - sinus, Other - EGD and colonoscopy. Denies: Hx Appendectomy, Hx Bowel Surgery, Hx Cholecystectomy, Hx Colostomy, Hx Coronary Artery Bypass Graft, Hx Gastric Bypass Surgery, Hx Pacemaker, Hx Tonsillectomy - Immunizations Hx Diphtheria, Pertussis, Tetanus Vaccination: Yes Physical Exam - Vital signs Vitals: Temp Pulse Resp BP Pulse Ox 98 F 107 H 16 147/82 H 93 05/11/19 11:41 05/11/19 11:41 05/11/19 11:41 05/11/19 11:41 05/11/19 11:41 Course - Vital Signs Vital signs: Temp Pulse Resp BP Pulse Ox 98 F 107 H 16 147/82 H 93 05/11/19 11:41 05/11/19 11:41 05/11/19 11:41 05/11/19 11:41 05/11/19 11:41 Doctor's Discharge - Discharge Referrals: ADRIANA BURNS MD [Primary Care Provider] - Follow up as needed
--- NOTE | 2019-05-11 12:15 | RADIOLOGY REPORT (SQ) ---
EXAM DESCRIPTION: KUB/ABDOMEN (SINGLE VIEW) COMPLETED DATE/TIME: 05/11/2019 10:56 am REASON FOR STUDY: Evaluate for obstruction. Left hemicolectomy on 04/29/2019. History of colon perf oration. COMPARISON: CT abdomen and pelvis, 04/09/2019. NUMBER OF VIEWS: One view. TECHNIQUE: Supine radiographic image of the abdomen acquired. LIMITATIONS: None. FINDINGS: BOWEL GAS PATTERN: Dilated stacked gas-filled loops of small bowel in the left abdomen wit h relative paucity of bowel gas in the right abdomen and colon. There is a moderate amount of stool in the right colon. Small bowel measures up to 4.7 cm diameter. No definite pneumoperitoneum. CALCIFICATIONS: No suspicious calcifications. SOFT TISSUES: No gross mass or suggestion of organomegaly. HARDWARE: None in the abdomen. BONES: No acute fracture. No worrisome bone lesions. OTHER: No other significant finding. IMPRESSION: Dilated gas-filled loops of small bowel in the left abdomen with relative paucity of bow el gas in the right abdomen highly suggestive of small bowel obstruction. Further evaluation with CT is recommended. TECHNICAL DOCUMENTATION: JOB ID: [id number] 2010 [employer]- All Rights Reserved Reading location - IP/workstation name: [email or web address]
--- NOTE | 2019-05-11 12:22 | ER Document Report ---
ED GI/ - General Chief Complaint: Abdominal Pain Stated Complaint: VOMITING Time Seen by Provider: 05/11/19 11:39 Primary Care Provider: ADRIANA BURNS MD [Primary Care Provider] - Follow up as needed Mode of Arrival: Ambulatory Notes: 59-year-old man presents to the emergency department with a history of colon resection surgery on April 29, 2019. States he was doing well until 2 days ago when he started developing nausea and vomiting. States that he is unable to keep down any fluids or food. He notes an epigastric sensation with associated nausea. He is taking a prescription and asked that/PPI he does note increased heartburn when he lies down he denies any lower abdominal discomfort or pain and has had normal bowel movements as recent as 10:00 AM today 05/11/2019. TRAVEL OUTSIDE OF THE [place] IN LAST 30 DAYS: No - Related Data Allergies/Adverse Reactions: No Known Allergies Allergy (Verified 05/11/19 11:41) Past Medical History - General Information source: Patient - Social History Smoking Status: Never Smoker Chew tobacco use (# tins/day): No Frequency of alcohol use: None Drug Abuse: None, Bath salts Family History: Malignancy. denies: CAD, DM, Hypertension Patient has suicidal ideation: No Patient has homicidal ideation: No - Past Medical History Cardiac Medical History: Denies: Hx Coronary Artery Disease, Hx Heart Attack, Hx Hypertension, Hx Pulmonary Embolism Pulmonary Medical History: Reports: Hx Asthma - MILD, Hx Sleep Apnea - CPAP NOT NECESSARY AT THIS TIME Denies: Hx Bronchitis, Hx COPD, Hx Pneumonia, Hx Respiratory Failure, Hx Tuberculosis Neurological Medical History: Denies: Hx Cerebrovascular Accident, Hx Seizures Endocrine Medical History: Denies: Hx Diabetes Mellitus Type 1, Hx Diabetes Mellitus Type 2, Hx Hyperthyroidism, Hx Hypothyroidism Renal/ Medical History: Denies: Hx Peritoneal Dialysis Malignancy Medical History: Denies Hx Lung Cancer GI Medical History: Reports: Hx Gastroesophageal Reflux Disease - PO MEDS, Hx Hiatal Hernia. Denies: Hx Cirrhosis, Hx Crohn's Disease, Hx Diverticulitis, Hx Hepatitis, Hx Irritable Bowel, Hx Liver Failure, Hx Pancreatitis, Hx Ulcer, Hx Ulcerative Colitis Musculoskeletal Medical History: Denies Hx Arthritis, Denies Hx Gout Skin Medical History: Denies Hx Eczema, Denies Hx Psoriasis Psychiatric Medical History: Denies: Hx Depression Infectious Medical History: Denies: Hx Hepatitis Past Surgical History: Reports: Hx Abdominal Surgery - umbilical hernia, Hx Herniorrhaphy - UMBILICAL HERNIA, Hx Nose Surgery - sinus, Other - EGD and colonoscopy. Denies: Hx Appendectomy, Hx Bowel Surgery, Hx Cholecystectomy, Hx Colostomy, Hx Coronary Artery Bypass Graft, Hx Gastric Bypass Surgery, Hx Pacemaker, Hx Tonsillectomy - Immunizations Hx Diphtheria, Pertussis, Tetanus Vaccination: Yes Review of Systems - Review of Systems Notes: Constitutional: Negative for fever. HENT: Negative for sore throat. Eyes: Negative for visual changes. Cardiovascular: Negative for chest pain. Respiratory: Negative for shortness of breath. Gastrointestinal: + Vomiting, no abdominal pain, no diarrhea. Genitourinary: Negative for dysuria. Musculoskeletal: Negative for back pain. Skin: Negative for rash. Neurological: Negative for headaches, weakness or numbness. 10 point ROS negative except as marked above and in HPI. Physical Exam - Vital signs Vitals: Temp Pulse Resp BP Pulse Ox 98 F 107 H 16 147/82 H 93 05/11/19 11:41 05/11/19 11:41 05/11/19 11:41 05/11/19 11:41 05/11/19 11:41 - Notes Notes: PHYSICAL EXAMINATION: Physical Exam: General: Well-nourished well-developed 59-year-old man in no acute distress HEENT: NC/AT, pupils equal round and reactive to light, MM moist,nares clear, oropharynx clear, airway patent Neck: supple, no adenopathy, no masses. Good range of motion Lungs: clear, no wheezing, no rales no rhonchi CVS: Regular rate and rhythm no murmur gallop or rub Abdomen: Soft, active, mildly distended, + epigastric mild tenderness with no guarding, no rebound, no mass Ext: No edema, clubbing or cyanosis. Neuro: Alert and responsive, moving all 4 extremities on command, cranial nerves intact, no focal findings Skin: Intact no open lesions, no rash PSYCH: Normal mood, normal affect. Course - Re-evaluation Re-evalutation: 05/11/19 17:46 Patient plain film had stacked loops of small bowel suggestion of a possible o bstruction. Air in the transverse colon suggests that the patient is not obstructed. His abdomen is also nontender. I discussed patient with Dr. Corey, he suggested that a CT scan with oral and IV contrast be performed to exclude leak from his surgical repair as well as excluding other pathologies. The CT scan was performed and the findings are suggestive and favoring an ileus rather than obstruction or surgical leak complication. - Vital Signs Vital signs: Temp Pulse Resp BP Pulse Ox 98 F 107 H 18 140/99 H 98 05/11/19 11:41 05/11/19 11:41 05/11/19 17:01 05/11/19 17:01 05/11/19 16:00 - Laboratory Result Diagrams: 05/11/19 12:14 05/11/19 12:14 Laboratory results interpreted by me: 05/11/19 05/11/19 05/11/19 12:14 12:14 15:30 Lymph % (Auto) 6.4 L Seg Neutrophils % 86.9 H Sodium 135.3 L Glucose 119 H Total Bilirubin 2.1 H Lipase < 10.0 L Urine Ketones 20 H Urine Urobilinogen 4.0 H I have reviewed laboratory data and used this information for the treatment decisions regarding the patient. - Diagnostic Test Radiology reviewed: Image reviewed, Reports reviewed - CT abdomen and pelvis with oral and IV contrast: Findings favors an ileus rather than obstruction as there is no transition point and no high-grade small bowel cutoff. Discharge - Discharge Clinical Impression: Ileus, Vomiting Condition: Good Disposition: ADMITTED OBSERVATION Admitting Provider: Surgicalist - Dr. Corey Unit Admitted: Surgical Floor Referrals: ADRIANA BURNS MD [Primary Care Provider] - Follow up as needed
[2019-05-11 12:36] LABS: ABSOLUTE LYMPHOCYTES (AUTO) 0.6 10^3/uL (0.5-4.7); ABSOLUTE MONOCYTES (AUTO) 0.5 10^3/uL (0.1-1.4); ABSOLUTE NEUT (AUTO) 7.9 10^3/uL (1.7-8.2); BASOPHILS % (AUTO) 0.3 % (0-2); EOSINOPHILS % (AUTO) 0.5 % (0-6); HEMATOCRIT 39.9 % (37.9-51.0); HEMOGLOBIN 14.1 g/dL (13.5-17.0); LYMPHOCYTES % (AUTO) 6.4 % (13-45); MEAN CORPUSCULAR HEMOGLOBIN 30.6 pg (27.0-33.4); MEAN CORPUSCULAR HGB CONC 35.4 g/dL (32.0-36.0); MEAN CORPUSCULAR VOLUME 87 fl (80-97); MONOCYTES % (AUTO) 5.9 % (3-13); PLATELET COUNT 278 10^3/uL (150-450); RED BLOOD COUNT 4.61 10^6/uL (4.35-5.55); RED CELL DISTRIBUTION WIDTH 13.3 % (11.5-14.0); SEGMENTED NEUTROPHILS % (AUTO) 86.9 % (42-78); TOTAL CELLS COUNTED % (AUTO) 100 %; WHITE BLOOD COUNT 9.1 10^3/uL (4.0-10.5)
[2019-05-11 12:50] LABS: ALBUMIN 3.8 g/dL (3.5-5.0); ALKALINE PHOSPHATASE 62 U/L (38-126); ANION GAP 9 (5-19); ASPARTATE AMINO TRANSFERASE 20 U/L (17-59); BILIRUBIN,DIRECT 0.2 mg/dL (0.0-0.4); BILIRUBIN,TOTAL 2.1 mg/dL (0.2-1.3); BLOOD UREA NITROGEN 12 mg/dL (7-20); CALCIUM 9.2 mg/dL (8.4-10.2); CARBON DIOXIDE 28 mmol/L (22-30); CHLORIDE 98 mmol/L (98-107); GLUCOSE 119 mg/dL (75-110); POTASSIUM 4.4 mmol/L (3.6-5.0); TOTAL PROTEIN 6.4 g/dL (6.3-8.2)
[2019-05-11] MEDS ORDERED: METOCLOPRAMIDE HCL ORAL SOLN 10 MG/10 ML UDCUP PO ONE (12:50)
[2019-05-11] MEDS ORDERED: LIDOCAINE 2% VISCOUS SOLN 15 ML UDCUP PO ONE (12:50)
[2019-05-11] MEDS ORDERED: MAG HYDROX/AL HYDROX/SIMETH SUSP 30 ML UDCUP PO ONE (12:50)
[2019-05-11] MEDS ORDERED: HYDROMORPHONE HCL INJ/PF 2 MG/ML AMPULE IV ONE ×2 (13:33→15:48)
[2019-05-11] MEDS ORDERED: PROCHLORPERAZINE EDISYLATE INJ 10 MG/2 ML VIAL IV ONE (15:49)
[2019-05-11 16:00] LABS: APPEARANCE,URINE CLEAR; BILIRUBIN,URINE NEGATIVE (NEGATIVE); COLOR,URINE YELLOW; GLUCOSE, URINE NEGATIVE (NEGATIVE); KETONES,URINE 20 mg/dL (NEGATIVE); LEUKOCYTE ESTERASE,URINE NEGATIVE (NEGATIVE); NITRITE,URINE NEGATIVE (NEGATIVE); PROTEIN,URINE NEGATIVE (NEGATIVE); URINE SPECIFIC GRAVITY 1.015
--- NOTE | 2019-05-11 17:23 | RADIOLOGY REPORT (SQ) ---
EXAM DESCRIPTION: CT ABD/PELVIS WITH IV ORAL COMPLETED DATE/TIME: 05/11/2019 4:49 pm REASON FOR STUDY: vomiting COMPARISON: CT abdomen pelvis 04/09/2019 TECHNIQUE: CT scan of the abdomen and pelvis performed using helical scanning technique with dynamic intravenous contrast injection. No oral contrast. Images reviewed with lung, soft tissue, and bone windows. Reconstructed coronal and sagittal MPR images reviewed. Delayed images for evaluation of the urinary system also acquired. All images stored on PACS. All CT scanners at this facility use dose modulation, iterative reconstruction, and/or weight based d osing when appropriate to reduce radiation dose to as low as reasonably achievable (ALARA). [facility]: Dose Right [facility]: CareDose [facility]: Dose Right [facility]: Teradose 4D [facility]: Vacatia CONTRAST TYPE AND DOSE: contrast/concentration: Isovue 350.00 mg/ml; Total Contrast Delivered: 100.0 ml; Total Saline Delivered: 72.0 ml 100 mL Isovue 350- low osmolar. RENAL FUNCTION: Not available. RADIATION DOSE: CT Rad equipment meets quality standard of care and radiation dose reduction techniq ues were employed. CTDIvol: 19.3 - 20.7 mGy. DLP: 2165 mGy-cm.. LIMITATIONS: None. FINDINGS: LOWER CHEST: No significant findings. No nodules or infiltrates. LIVER: Normal size. No masses. No dilated ducts. SPLEEN: Normal size. No focal lesions. PANCREAS: No masses. No significant calcifications. No adjacent inflammation or peripancreatic fluid collections. Pancreatic duct not dilated. GALLBLADDER: No identified stones by CT criteria. No inflammatory changes to suggest cholecystitis. ADRENAL GLANDS: No significant masses or asymmetry. RIGHT KIDNEY AND URETER: No solid masses. No significant calcifications. No hydronephrosis or hyd roureter. LEFT KIDNEY AND URETER: No solid masses. No significant calcifications. No hydronephrosis or hydr oureter. AORTA AND VESSELS: No aneurysm. No dissection. Renal arteries, SMA, celiac without stenosis. RETROPERITONEUM: No retroperitoneal adenopathy, hemorrhage or masses. BOWEL AND PERITONEAL CAVITY: Recent postsurgical changes of partial left hemicolectomy small amount o f mesenteric free fluid, which tracks along the left paracolic gutter. Prominent loops of proximal s mall bowel containing air-fluid levels without abrupt transition point. Gradual tapering of prominen t small bowel to normal caliber distally. Gas visualized within distal small bowel and colon. No in tra-abdominal free air, lymphadenopathy or rim enhancing fluid collection. APPENDIX: Normal. PELVIS: No mass. No free fluid. Normal bladder. Fat containing left inguinal hernia. ABDOMINAL WALL: Ventral abdominal wall surgical access points. BONES: No significant or acute findings. OTHER: No other significant finding. IMPRESSION: Expected postsurgical changes following recent left hemicolectomy. No free air or absce ss formation. Prominent loops of proximal small bowel without abrupt transition points, favored to r epresent ileus. No findings of high-grade small bowel obstruction. TECHNICAL DOCUMENTATION: JOB ID: [id number] Quality ID # [id number]: Final reports with documentation of one or more dose reduction techniques (e.g., Au tomated exposure control, adjustment of the mA and/or kV according to patient size, use of iterative reconstruction technique) 2010 [employer]- All Rights Reserved Reading location - IP/workstation name: [email or web address]
[2019-05-11] MEDS ORDERED: PROMETHAZINE HCL INJ 25 MG/1 ML VIAL IV PRN (19:34)
[2019-05-11] MEDS ORDERED: MORPHINE SULFATE 10 MG/ML INJ IV PRN (19:34)
[2019-05-11] MEDS ORDERED: DEXTROSE 40% GEL 15 GM TUBE PO PRN ×2 (19:34)
[2019-05-11] MEDS ORDERED: GLUCAGON,HUMAN RECOMB 1 MG INJ SUBCUT PRN (19:34)
[2019-05-11] MEDS ORDERED: DEXTROSE 50%-WATER 25 GM/50 ML DISP.SYRIN IV PRN ×2 (19:34)
[2019-05-11] MEDS ORDERED: ONDANSETRON HCL INJ/PF 4 MG/2 ML SDV IV PRN (19:34)
[2019-05-11] MEDS ORDERED: INFLUENZA QUAD (6MOS+) 2019-20 VAC 0.5 ML SYR IM ONE (22:12)
[2019-05-11] MEDS: NORMAL SALINE 1000 ML 1,000 ML IV PRN (22:43)
[2019-05-12 05:09] LABS: ABSOLUTE EOSINOPHILS # (AUTO) 0.2 10^3/uL (0.0-0.6); ABSOLUTE LYMPHOCYTES (AUTO) 0.9 10^3/uL (0.5-4.7); ABSOLUTE MONOCYTES (AUTO) 0.6 10^3/uL (0.1-1.4); ABSOLUTE NEUT (AUTO) 5.6 10^3/uL (1.7-8.2); BASOPHILS % (AUTO) 0.5 % (0-2); EOSINOPHILS % (AUTO) 3.3 % (0-6); HEMATOCRIT 35.9 % (37.9-51.0); HEMOGLOBIN 12.5 g/dL (13.5-17.0); LYMPHOCYTES % (AUTO) 12.2 % (13-45); MEAN CORPUSCULAR HEMOGLOBIN 30.4 pg (27.0-33.4); MEAN CORPUSCULAR HGB CONC 34.7 g/dL (32.0-36.0); MEAN CORPUSCULAR VOLUME 87 fl (80-97); MONOCYTES % (AUTO) 8.4 % (3-13); PLATELET COUNT 239 10^3/uL (150-450); RED BLOOD COUNT 4.11 10^6/uL (4.35-5.55); RED CELL DISTRIBUTION WIDTH 13.2 % (11.5-14.0); SEGMENTED NEUTROPHILS % (AUTO) 75.6 % (42-78); TOTAL CELLS COUNTED % (AUTO) 100 %; WHITE BLOOD COUNT 7.5 10^3/uL (4.0-10.5)
[2019-05-12] MEDS: NORMAL SALINE 1000 ML 1,000 ML IV PRN (05:19)
[2019-05-12 05:28] LABS: BLOOD UREA NITROGEN 10 mg/dL (7-20); CALCIUM 8.3 mg/dL (8.4-10.2); CARBON DIOXIDE 31 mmol/L (22-30); CHLORIDE 101 mmol/L (98-107); GLUCOSE 96 mg/dL (75-110); POTASSIUM 5.2 mmol/L (3.6-5.0)
[2019-05-12 05:30] LABS: ANION GAP 3 (5-19)
--- NOTE | 2019-05-12 08:51 | RADIOLOGY REPORT (SQ) ---
EXAM DESCRIPTION: KUB/ABDOMEN (SINGLE VIEW) COMPLETED DATE/TIME: 05/12/2019 8:28 am REASON FOR STUDY: nausea and vomiting COMPARISON: 05/11/2019 NUMBER OF VIEWS: One view. TECHNIQUE: Supine radiographic image of the abdomen acquired. LIMITATIONS: None. FINDINGS: BOWEL GAS PATTERN: Contrast to the distribution of the colon. Nonobstructive. CALCIFICATIONS: No suspicious calcifications. SOFT TISSUES: No gross mass or suggestion of organomegaly. HARDWARE: Dee. BONES: No acute fracture. No worrisome bone lesions. OTHER: No other significant finding. IMPRESSION: Contrast is seen through the colon. TECHNICAL DOCUMENTATION: JOB ID: [id number] 2010 [email or web address]- All Rights Reserved Reading location - IP/workstation name: [email or web address]
--- NOTE | 2019-05-12 08:54 | PDOC H&P ---
History of Present Illness Admission Date/PCP: 05/11/19 18:11 ADRIANA BURNS MD Patient complains of: nausea, vomiting, abdominal pain History of Present Illness: DAISY CARRERA JR is a 59 year old male recently status post laparoscopic sigmoid colectomy for complicated diverticulitis. The patient was discharged home, and doing well. On 05/10/2019, the patient began to have abdominal pain and distention. It progressed through 05/11/2019, and the patient began vomiting. The patient reports that he vomited 4 or 5 times, and then presented to the emergency department for evaluation. The patient reported having bowel movements at home, even while he was distended and nauseated. He complains of epigastric abdominal pain, 5 out of 10. Nothing made it better or worse. He reports increasing amounts of reflux. The patient has been taking ibuprofen for pain, as he does not like the way hydrocodone makes him feel. His pain does not radiate. Nothing made it better or worse. The patient was admitted to hospital for observation. This morning, the patient denies any nausea, vomiting, abdominal pain, or other symptom. He had multiple bowel movements overnight. Past Medical History Cardiac Medical History: Denies: Coronary Artery Disease, Myocardial Infarction, Hypertension, Pulmonary Embolism Pulmonary Medical History: Reports: Asthma - MILD, Sleep Apnea - CPAP NOT NECESSARY AT THIS TIME Denies: Bronchitis, Chronic Obstructive Pulmonary Disease (COPD), Pneumonia, Respiratory Failure, Tuberculosis Neurological Medical History: Denies: Seizures Endocrine Medical History: Denies: Diabetes Mellitus Type 1, Diabetes Mellitus Type 2, Hyperthyroidism, Hypothyroidism Malignancy Medical History: Denies: Lung Cancer GI Medical History: Reports: Gastroesophageal Reflux Disease - PO MEDS, Hiatal Hernia Denies: Cirrhosis, Crohn's Disease, Diverticulitis, Hepatitis, Ulcerative Colitis Musculoskeltal Medical History: Denies: Arthritis, Gout Skin Medical History: Denies: Eczema, Psoriasis Psychiatric Medical History: Denies: Depression Hematology: Denies: Anemia, Bleeding Tendencies Past Surgical History Past Surgical History: Reports: Herniorrhaphy - UMBILICAL HERNIA, Other - EGD and colonoscopy. Laparoscopic sigmoid colectomy Denies: Appendectomy, Cholecystectomy, Colostomy, Coronary Artery Bypass Graft, Gastric Bypass Surgery, Pacemaker, Tonsillectomy Social History Smoking Status: Never Smoker Electronic Cigarette use?: No Frequency of Alcohol Use: None Hx Recreational Drug Use: No Drugs: None Hx Prescription Drug Abuse: No - Advance Directive Resuscitation Status: Full Code Family History Family History: Malignancy. denies: CAD, DM, Hypertension Parental Family History Reviewed: Yes Children Family History Reviewed: Yes Sibling(s) Family History Reviewed.: Yes Medication/Allergy Home Medications: Fexofenadine HCl [Catarina] 180 mg PO DAILYP PRN 08/03/18 Pantoprazole Sodium [Protonix [address] Tablet] 20 mg PO QHS 08/03/18 Imipramine HCl [Tofranil 25 mg Tablet] 25 mg PO QHS 04/26/19 Ibuprofen [Motrin 800 mg Tablet] 800 mg PO MEALS #42 tablet 05/03/19 Loratadine [Claritin 10 mg Tablet] 10 mg PO DAILYP PRN tablet 05/03/19 Allergies/Adverse Reactions: No Known Allergies Allergy (Verified 05/11/19 11:41) Review of Systems Constitutional: ABSENT: anorexia, chills, fatigue, fever(s) Eyes: ABSENT: visual disturbances Ears: ABSENT: hearing changes Nose, Mouth, and Throat: ABSENT: sore throat Cardiovascular: ABSENT: chest pain Respiratory: ABSENT: cough Gastrointestinal: PRESENT: abdominal pain, bloating, heartburn, nausea, vomiting. ABSENT: hematemesis, hematochezia, melena Genitourinary: ABSENT: dysuria Musculoskeletal: ABSENT: back pain Neurological: ABSENT: confusion, convulsions, dizziness Psychiatric: ABSENT: anxiety, depression Endocrine: ABSENT: cold intolerance, heat intolerance Hematologic/Lymphatic: ABSENT: easy bleeding Physical Exam Vital Signs: Temp Pulse Resp BP Pulse Ox 98.1 F 95 18 132/82 H 97 05/11/19 21:42 05/11/19 21:42 05/11/19 21:42 05/11/19 21:42 05/11/19 21:42 Intake & Output 05/11/19 05/12/19 05/13/19 06:59 06:59 06:59 Intake Total 3345 Balance 3345 Weight 109.6 kg General appearance: PRESENT: no acute distress, cooperative, disheveled, obese Head exam: PRESENT: atraumatic, normocephalic Eye exam: PRESENT: EOMI, PERRLA. ABSENT: scleral icterus Mouth exam: PRESENT: moist, neck supple Neck exam: PRESENT: meningismus, tenderness, thyromegaly, tracheal deviation Respiratory exam: PRESENT: clear to auscultation db, unlabored. ABSENT: chest wall tenderness, tachypnea, wheezes Cardiovascular exam: ABSENT: tachycardia GI/Abdominal exam: PRESENT: soft. ABSENT: distended, firm, rigid, tenderness Rectal exam: PRESENT: deferred Extremities exam: ABSENT: clubbing Musculoskeletal exam: ABSENT: deformity Neurological exam: PRESENT: alert, awake, oriented to person, oriented to place, oriented to time, oriented to situation. ABSENT: CN II-XII grossly intact Psychiatric exam: ABSENT: agitated, anxious, depressed Focused psych exam: ABSENT: delusional Skin exam: ABSENT: cyanosis, erythema Results Laboratory Results: 05/12/19 04:58 05/12/19 04:58 05/11/19 05/11/19 05/11/19 12:14 12:14 15:30 WBC 9.1 RBC 4.61 Hgb 14.1 Hct 39.9 MCV 87 MCH 30.6 MCHC 35.4 RDW 13.3 Plt Count 278 Seg Neutrophils % 86.9 H Sodium 135.3 L Potassium 4.4 Chloride 98 Carbon Dioxide 28 Anion Gap 9 BUN 12 Creatinine 0.71 Est GFR ( Amer) > 60 Glucose 119 H Calcium 9.2 Total Bilirubin 2.1 H AST 20 Alkaline Phosphatase 62 Total Protein 6.4 Albumin 3.8 Lipase < 10.0 L Urine Color YELLOW Urine Appearance CLEAR Urine pH 7.0 Ur Specific [place] 1.015 Urine Protein NEGATIVE Urine Glucose (UA) NEGATIVE Urine Ketones 20 H Urine Blood NEGATIVE Urine Nitrite NEGATIVE Ur Leukocyte Esterase NEGATIVE Urine WBC (Auto) 2 Urine RBC (Auto) 0 05/12/19 05/12/19 04:58 04:58 WBC 7.5 RBC 4.11 L Hgb 12.5 L Hct 35.9 L MCV 87 MCH 30.4 MCHC 34.7 RDW 13.2 Plt Count 239 Seg Neutrophils % 75.6 Sodium 134.7 L Potassium 5.2 H Chloride 101 Carbon Dioxide 31 H Anion Gap 3 L BUN 10 Creatinine 0.75 Est GFR ( Amer) > 60 Glucose 96 Calcium 8.3 L Total Bilirubin AST Alkaline Phosphatase Total Protein Albumin Lipase Urine Color Urine Appearance Urine pH Ur Specific [place] Urine Protein Urine Glucose (UA) Urine Ketones Urine Blood Urine Nitrite Ur Leukocyte Esterase Urine WBC (Auto) Urine RBC (Auto) Impressions: Abdomen/Pelvis CT 05/11/19 00:00 IMPRESSION: Expected postsurgical changes following recent left hemicolectomy. No free air or abscess formation. Prominent loops of proximal small bowel witho ut abrupt transition points, favored to represent ileus. No findings of high- grade small bowel obstruction. Assessment & Plan - Diagnosis (1) Nausea and vomiting Qualifiers: Vomiting type: unspecified Vomiting Intractability: unspecified Qualified Code(s): R11.2 - Nausea with vomiting, unspecified Is this a current diagnosis for this admission?: Yes - Plan Summary Plan Summary: 59-year-old male status post laparoscopic sigmoid colon resection. The patient presents with nausea and vomiting. He had a CT scan which failed to show any significant evidence of bowel obstruction. The patient had air and stool within the colon. He continued to have bowel movements before and after his ER visit. The patient was placed on the floor for observation. This morning, the patient had 4 bowel movements overnight, and feels "normal" today. I will advance his diet. As long as his abdominal pain, nausea, and vomiting resolves, he may be discharged later today. I will follow this patient closely. Anticipate discharge later today.
[2019-05-12] MEDS ORDERED: ENOXAPARIN SODIUM INJ 40 MG/0.4 ML DISP.SYRIN SUBCUT SCH (10:00)
[2019-05-12 14:45] VITALS: BP 132/82
== END 2019-05-12 15:15 | disposition home or self-care (01) ==
LOC: ER 11:30 → OBSVTOIN 18:11 → EH 18:11 → INTOOBSV 18:11 → 3W 21:51
PROVIDERS: ADMIT Surgery; ATTEND Surgery
DX: R11.2 Nausea with vomiting, unspecified (principal); R10.13 Epigastric pain; Z90.49 Acquired absence of other specified parts of digestive tract; K21.9 Gastro-esophageal reflux disease without esophagitis; R14.0 Abdominal distension (gaseous); Z98.890 Other specified postprocedural states; Z87.19 Personal history of other diseases of the digestive system
CPT/HCPCS: 96376; 99285; 96361; 96374; 96375; 36415 ×2; 83690; 85025 ×2; 80048; 80053; 81001; 74018 ×2; 74177; G0378 ×3; J3490; J1170; J0780; J2405; J7030 ×2

== ENCOUNTER 2019-05-23 18:20 | Observation (INO) | payer BC ==
[2019-05-23] MEDS ORDERED: ONDANSETRON HCL 8 MG TABLET PO ONE (18:55)
--- NOTE | 2019-05-23 18:55 | ER Document Report ---
ED Medical Screen (RME) - General Chief Complaint: Abdominal Pain Stated Complaint: ABDOMINAL PAIN, NAUSEA Time Seen by Provider: 05/23/19 18:51 Primary Care Provider: ADRIANA BURNS MD [Primary Care Provider] - Follow up as needed Mode of Arrival: Ambulatory Information source: Patient Notes: 59-year-old male presented to ED for complaint of abdominal pain left lower and upper abdominal pain. He states he had colon surgery on April 29 due to diverticulitis with a removed part of his colon due to diverticulitis. He states he started having pain again about a week and a half ago and he came in here to the emergency room. He states they kept him overnight that time and then it got better and he went home and then it started again last night during the middle of the night. He states he has had a abdominal pain belching nausea and feeling like he was cannot throw up with any moment. He states he feels the same as when he had the diverticulitis. He is alert oriented respirations regular nonlabored. I have greeted and performed a rapid initial assessment of this patient. A comprehensive ED assessment and evaluation of the patient, analysis of test results and completion of medical decision making process will be conducted by an additional ED providers. TRAVEL OUTSIDE OF THE [place] IN LAST 30 DAYS: No - Related Data Allergies/Adverse Reactions: No Known Allergies Allergy (Verified 05/23/19 18:49) Past Medical History - General Information source: Patient - Social History Cigarette use (# per day): No Frequency of alcohol use: None Drug Abuse: None Lives with: Family Family history: Reviewed & Not Pertinent - Past Medical History Cardiac Medical History: Reports: None Pulmonary Medical History: Reports: Hx Asthma - MILD, Hx Sleep Apnea - CPAP NOT NECESSARY AT THIS TIME EENT Medical History: Reports: None Neurological Medical History: Reports: None Endocrine Medical History: Reports: None Renal/ Medical History: Reports: None. Denies: Hx Peritoneal Dialysis Malignancy Medical History: Reports None GI Medical History: Reports: Hx Diverticulitis, Hx Gastritis, Hx Gastroesophageal Reflux Disease - PO MEDS, Hx Hiatal Hernia, Hx Colonoscopy Musculoskeltal Medical History: Reports None Skin Medical History: Reports None, Denies Hx Eczema, Denies Hx Psoriasis Psychiatric Medical History: Reports: None Traumatic Medical History: Reports: None Infectious Medical History: Reports: None Past Surgical History: Reports: Hx Abdominal Surgery - umbilical hernia colon resection due to diverticulitis, Hx Nose Surgery - sinus, Hx Umbilical Hernia, Other - Laparoscopic sigmoid colectomy. Denies: Hx Appendectomy, Hx Bowel Surgery, Hx Cholecystectomy, Hx Colostomy, Hx Coronary Artery Bypass Graft, Hx Gastric Bypass Surgery, Hx Pacemaker, Hx Tonsillectomy - Immunizations Hx Diphtheria, Pertussis, Tetanus Vaccination: Yes Physical Exam - Vital signs Vitals: Temp Pulse Resp BP Pulse Ox 97.6 F 101 H 18 154/97 H 97 05/23/19 18:25 05/23/19 18:25 05/23/19 18:25 05/23/19 18:25 05/23/19 18:25 Course - Vital Signs Vital signs: Temp Pulse Resp BP Pulse Ox 97.6 F 101 H 18 154/97 H 97 05/23/19 18:25 05/23/19 18:25 05/23/19 18:25 05/23/19 18:25 05/23/19 18:25 Doctor's Discharge - Discharge Referrals: ADRIANA BURNS MD [Primary Care Provider] - Follow up as needed
[2019-05-23 19:34] LABS: ABSOLUTE EOSINOPHILS # (AUTO) 0.1 10^3/uL (0.0-0.6); ABSOLUTE LYMPHOCYTES (AUTO) 0.8 10^3/uL (0.5-4.7); ABSOLUTE MONOCYTES (AUTO) 0.6 10^3/uL (0.1-1.4); ABSOLUTE NEUT (AUTO) 6.6 10^3/uL (1.7-8.2); BASOPHILS % (AUTO) 0.5 % (0-2); EOSINOPHILS % (AUTO) 0.7 % (0-6); HEMATOCRIT 41.6 % (37.9-51.0); HEMOGLOBIN 14.9 g/dL (13.5-17.0); LYMPHOCYTES % (AUTO) 9.6 % (13-45); MEAN CORPUSCULAR HEMOGLOBIN 31.4 pg (27.0-33.4); MEAN CORPUSCULAR HGB CONC 35.8 g/dL (32.0-36.0); MEAN CORPUSCULAR VOLUME 88 fl (80-97); MONOCYTES % (AUTO) 6.8 % (3-13); PLATELET COUNT 267 10^3/uL (150-450); RED BLOOD COUNT 4.75 10^6/uL (4.35-5.55); RED CELL DISTRIBUTION WIDTH 13.5 % (11.5-14.0); SEGMENTED NEUTROPHILS % (AUTO) 82.4 % (42-78); TOTAL CELLS COUNTED % (AUTO) 100 %; WHITE BLOOD COUNT 8.1 10^3/uL (4.0-10.5)
[2019-05-23 19:40] LABS: ALBUMIN 4.3 g/dL (3.5-5.0); ALKALINE PHOSPHATASE 75 U/L (38-126); ANION GAP 10 (5-19); ASPARTATE AMINO TRANSFERASE 21 U/L (17-59); BILIRUBIN,DIRECT 0.2 mg/dL (0.0-0.4); BLOOD UREA NITROGEN 10 mg/dL (7-20); CALCIUM 9.2 mg/dL (8.4-10.2); CARBON DIOXIDE 30 mmol/L (22-30); CHLORIDE 96 mmol/L (98-107); GLUCOSE 120 mg/dL (75-110); POTASSIUM 4.7 mmol/L (3.6-5.0)
[2019-05-23] MEDS ORDERED: METOCLOPRAMIDE HCL ORAL SOLN 10 MG/10 ML UDCUP PO ONE (22:35)
[2019-05-23] MEDS ORDERED: LIDOCAINE 2% VISCOUS SOLN 15 ML UDCUP PO ONE (22:35)
[2019-05-23] MEDS ORDERED: NORMAL SALINE 1000 ML 1,000 ML IV ONE (22:35)
[2019-05-23] MEDS ORDERED: MAG HYDROX/AL HYDROX/SIMETH SUSP 30 ML UDCUP PO ONE (22:35)
--- NOTE | 2019-05-23 22:38 | ER Document Report ---
ED GI/ - General Chief Complaint: Abdominal Pain Stated Complaint: ABDOMINAL PAIN, NAUSEA Time Seen by Provider: 05/23/19 18:51 Mode of Arrival: Ambulatory Notes: Patient is a 59-year-old male that comes to the emergency department for chief complaint of abdominal pain, nausea, and no bowel movement since last night. Patient is a history of partial colectomy secondary to diverticulitis on 04/29/[address] Corey. He also was hospitalized overnight on 05/10/2019. He states he usually has 3 bowel movements a day, his bowel movement last night was normal, however he has not been able to have one since that time. Patient also reports that he is getting heartburn symptoms and he vomited once after coming to the emergency department. Patient states he called his surgeon's office because he started having pain/cramping/nausea, he states he was told to take a laxative, he states he drank milk of magnesia without any results. He is on a daily Colace, he is not on pain medications. Patient denies fever. TRAVEL OUTSIDE OF THE [place] IN LAST 30 DAYS: No - Related Data Allergies/Adverse Reactions: No Known Allergies Allergy (Verified 05/23/19 18:49) Home Medications: ASTHMA. SLEEP APNEA Past Medical History - General Information source: Patient - Social History Smoking Status: Never Smoker Cigarette use (# per day): No Chew tobacco use (# tins/day): No Frequency of alcohol use: None Drug Abuse: None Lives with: Family Family History: Malignancy. denies: CAD, DM, Hypertension Patient has suicidal ideation: No Patient has homicidal ideation: No - Past Medical History Cardiac Medical History: Reports: None Pulmonary Medical History: Reports: Hx Asthma - MILD, Hx Sleep Apnea - CPAP NOT NECESSARY AT THIS TIME EENT Medical History: Reports: None Neurological Medical History: Reports: None Endocrine Medical History: Reports: None Renal/ Medical History: Reports: None. Denies: Hx Peritoneal Dialysis Malignancy Medical History: Reports None GI Medical History: Reports: Hx Diverticulitis, Hx Gastritis, Hx Gastroesophageal Reflux Disease - PO MEDS, Hx Hiatal Hernia, Hx Colonoscopy Musculoskeletal Medical History: Reports None Skin Medical History: Reports None, Denies Hx Eczema, Denies Hx Psoriasis Psychiatric Medical History: Reports: None Traumatic Medical History: Reports: None Infectious Medical History: Reports: None Past Surgical History: Reports: Hx Abdominal Surgery - umbilical hernia colon resection due to diverticulitis, Hx Nose Surgery - sinus, Hx Umbilical Hernia, Other - Laparoscopic sigmoid colectomy. Denies: Hx Appendectomy, Hx Bowel Surgery, Hx Cholecystectomy, Hx Colostomy, Hx Coronary Artery Bypass Graft, Hx Gastric Bypass Surgery, Hx Pacemaker, Hx Tonsillectomy - Immunizations Hx Diphtheria, Pertussis, Tetanus Vaccination: Yes Review of Systems - Review of Systems Constitutional: No symptoms reported EENT: No symptoms reported Cardiovascular: No symptoms reported Respiratory: No symptoms reported Gastrointestinal: See HPI Genitourinary: No symptoms reported Male Genitourinary: No symptoms reported Musculoskeletal: No symptoms reported Skin: No symptoms reported Hematologic/Lymphatic: No symptoms reported Neurological/Psychological: No symptoms reported Physical Exam - Vital signs Vitals: Temp Pulse Resp BP Pulse Ox 97.6 F 101 H 18 154/97 H 97 05/23/19 18:25 05/23/19 18:25 05/23/19 18:25 05/23/19 18:25 05/23/19 18:25 - Notes Notes: GENERAL: Alert, interacts well. Patient appears very mildly uncomfortable. HEAD: Normocephalic, atraumatic. EYES: Pupils equal, round, and reactive to light. Extraocular movements intact. ENT: Oral mucosa moist, tongue midline. Oropharynx unremarkable. Airway patent. LUNGS: Clear to auscultation bilaterally, no wheezes, rales, or rhonchi. No respiratory distress. HEART: Regular rate and rhythm. No murmur ABDOMEN: There is mild generalized tenderness, mild distention. Bowel sounds are quiet but present. Laparoscopic wounds present but healed without erythema, drainage, notable tenderness or abnormal heat. EXTREMITIES: Moves all 4 extremities spontaneously. No edema, normal radial and dorsalis pedis pulses bilaterally. No cyanosis. BACK: no cervical, thoracic, lumbar midline tenderness. No saddle anesthesia, normal distal neurovascular exam. Moves all extremities in full range of motion. NEUROLOGICAL: Alert and oriented x3. Normal speech. Cranial nerves II through XII grossly intact. PSYCH: Normal affect, normal mood. SKIN: Warm, dry, normal turgor. No rashes or lesions noted. Course - Re-evaluation Re-evalutation: Patient mildly uncomfortable, does have some abdominal distention and generalized tenderness. CBC unremarkable, chemistry unremarkable, urinalysis shows elevated specific gravity. Patient has been given IV fluids. He declined pain medication. Patient requested a GI cocktail, he was provided with this but did not have significant improvement like he did last time. Acute abdominal series performed, shows probable ileus but no significant dilation suggesting obstruction, no free air. I called and spoke with patient surgeon Dr. Corey. His recommendation is patient be admitted to his service for treatment of abdominal pain, swelling, vomiting, ileus. Patient and are very agreeable with this. - Vital Signs Vital signs: Temp Pulse Resp BP Pulse Ox 97.8 F 69 16 145/86 H 97 05/24/19 03:37 05/24/19 03:37 05/24/19 03:37 05/24/19 03:37 05/24/19 03:37 - Laboratory Result Diagrams: 05/23/19 19:03 05/23/19 19:03 Laboratory results interpreted by me: 05/23/19 05/23/19 05/23/19 19:03 19:03 23:15 Lymph % (Auto) 9.6 L Seg Neutrophils % 82.4 H Sodium 135.8 L Chloride 96 L Glucose 120 H Urine Protein 30 H Urine Ketones TRACE H Discharge - Discharge Clinical Impression: Ileus Abdominal pain Qualifiers: Abdominal location: generalized Qualified Code(s): R10.84 - Generalized abdominal pain Vomiting Qualifiers: Vomiting type: unspecified Vomiting Intractability: non-intractable Nausea presence: with nausea Qualified Code(s): R11.2 - Nausea with vomiting, unspecified Condition: Stable Disposition: ADMITTED INPATIENT Admitting Provider: Dr. Corey Unit Admitted: Surgical Floor
[2019-05-23 23:45] LABS: APPEARANCE,URINE SLIGHTLY-CLOUDY; BILIRUBIN,URINE NEGATIVE (NEGATIVE); COLOR,URINE YELLOW; GLUCOSE, URINE NEGATIVE (NEGATIVE); KETONES,URINE TRACE mg/dL (NEGATIVE); PROTEIN,URINE 30 mg/dL (NEGATIVE); URINE SPECIFIC GRAVITY 1.027; UROBILINOGEN,URINE NEGATIVE mg/dL (<2.0)
--- NOTE | 2019-05-23 23:52 | RADIOLOGY REPORT (SQ) ---
EXAM DESCRIPTION: XR ABDOMEN SUPINE AND ERECT WITH CHEST (ABD ACUTE SERIES) COMPLETED DATE/TME: 05/23/2019 22:36 CLINICAL HISTORY: 59 years, Male, abd pain/swelling, hx bowel surgery COMPARISON: Chest x-ray 04/26/2019 NUMBER OF VIEWS: 4 TECHNIQUE: Upright chest with supine and erect views of the abdomen LIMITATIONS: None. FINDINGS: The heart size is normal. The lungs are clear. No pneumothorax. No free air under the hemidiaphragms. Surgical clips project over the lower abdomen near the midline. Multiple nondilated air-fluid levels likely reflecting ileus. Gas and stool in the colon. No free air IMPRESSION: No acute cardiopulmonary process. Probable mild ileus copyright 2010 [employer]- All Rights Reserved
[2019-05-24] MEDS ORDERED: ONDANSETRON HCL INJ/PF 4 MG/2 ML SDV IV ONE (01:17)
[2019-05-24] MEDS ORDERED: MORPHINE SULFATE 10 MG/ML INJ IV ONE (01:17)
[2019-05-24] MEDS ORDERED: NORMAL SALINE 1000 ML 1,000 ML IV PRN (01:18)
[2019-05-24] MEDS ORDERED: MORPHINE SULFATE 10 MG/ML INJ IV PRN ×2 (01:18→04:10)
[2019-05-24] MEDS ORDERED: DEXTROSE 50%-WATER 25 GM/50 ML DISP.SYRIN IV PRN ×2 (03:57)
[2019-05-24] MEDS ORDERED: GLUCAGON,HUMAN RECOMB 1 MG INJ SUBCUT PRN (03:57)
[2019-05-24] MEDS ORDERED: DEXTROSE 40% GEL 15 GM TUBE PO PRN ×2 (03:57)
[2019-05-24] MEDS ORDERED: ONDANSETRON HCL INJ/PF 4 MG/2 ML SDV IV PRN (04:10)
[2019-05-24] MEDS: NORMAL SALINE 1000 ML 1,000 ML IV PRN ×2 (04:45→14:38)
--- NOTE | 2019-05-24 12:18 | RADIOLOGY REPORT (SQ) ---
EXAM DESCRIPTION: SMALL BOWEL SERIES COMPLETED DATE/TIME: 05/24/2019 10:22 am REASON FOR STUDY: partial obstructionAbdominal pain and distention COMPARISON: Plain radiographs of the abdomen 05/23/2019 FLUOROSCOPY TIME: 0.5 minutes of fluoroscopy was used. 2 images saved to PACS. LIMITATIONS: None. PROCEDURE: Initial machine packer image of abdomen acquired, followed by administration of Gastrografin. Ser ial radiographic images acquired. Fluoroscopic images recorded of the terminal ileum and other indic ated areas. All images stored on PACS. FINDINGS: SALES DIRECTOR KUB: Non-obstructive bowel pattern. No abnormal calcifications. Soft tissue planes normal. Evidence of prior midline hernia repair with surgical clips overlying lower midline abdomen pelvis. STOMACH: No significant reflux. Normal distention without abnormality. DUODENUM: Normal mucosal pattern with adequate distention. No displacement or obstruction. JEJUNUM: Normal mucosal pattern. No dilatation, segmentation, strictures or masses. Evaluation limi pete secondary to use of Gastrografin. ILEUM: Normal mucosal pattern. No dilatation, segmentation, strictures or masses. Evaluation limite d secondary to use of Gastrografin. TERMINAL ILEUM AND ILEO-CECAL VALVE: Normal mucosal pattern without "cobble-stoning" or stricture. N ormal compression. PROXIMAL COLON: Incompletely imaged. No abnormality identified. OTHER: Normal transit time of contrast through the small bowel with visualization of the cecum and as cending colon the 1 hour film. IMPRESSION: NORMAL GASTROGRAFIN SMALL BOWEL EXAM. NO EVIDENCE OF SMALL-BOWEL OBSTRUCTION. COMMENT: Quality ID [id number]: Final reports for procedures using fluoroscopy that document radiation exp osure indices, or exposure time and number of fluorographic images (if radiation exposure indices are not available) TECHNICAL DOCUMENTATION: JOB ID: [id number] 2010 [employer]- All Rights Reserved Reading location - IP/workstation name: [email or web address]
[2019-05-25 08:17] LABS: ABSOLUTE EOSINOPHILS # (AUTO) 0.1 10^3/uL (0.0-0.6); ABSOLUTE LYMPHOCYTES (AUTO) 0.9 10^3/uL (0.5-4.7); ABSOLUTE MONOCYTES (AUTO) 0.3 10^3/uL (0.1-1.4); ABSOLUTE NEUT (AUTO) 4.8 10^3/uL (1.7-8.2); BASOPHILS % (AUTO) 0.7 % (0-2); EOSINOPHILS % (AUTO) 2.2 % (0-6); HEMATOCRIT 41.6 % (37.9-51.0); HEMOGLOBIN 14.1 g/dL (13.5-17.0); LYMPHOCYTES % (AUTO) 14.4 % (13-45); MEAN CORPUSCULAR HEMOGLOBIN 29.9 pg (27.0-33.4); MEAN CORPUSCULAR HGB CONC 33.9 g/dL (32.0-36.0); MEAN CORPUSCULAR VOLUME 88 fl (80-97); MONOCYTES % (AUTO) 5.5 % (3-13); PLATELET COUNT 244 10^3/uL (150-450); RED BLOOD COUNT 4.72 10^6/uL (4.35-5.55); RED CELL DISTRIBUTION WIDTH 13.4 % (11.5-14.0); SEGMENTED NEUTROPHILS % (AUTO) 77.2 % (42-78); TOTAL CELLS COUNTED % (AUTO) 100 %; WHITE BLOOD COUNT 6.3 10^3/uL (4.0-10.5)
--- NOTE | 2019-05-25 08:21 | RADIOLOGY REPORT (SQ) ---
EXAM DESCRIPTION: KUB/ABDOMEN (SINGLE VIEW) COMPLETED DATE/TIME: 05/25/2019 8:11 am REASON FOR STUDY: abdominal pain COMPARISON: Small bowel follow-through previous day NUMBER OF VIEWS: One view. TECHNIQUE: Supine radiographic image of the abdomen acquired. LIMITATIONS: None. FINDINGS: BOWEL GAS PATTERN: Normal bowel gas pattern. No dilated loops. CALCIFICATIONS: No suspicious calcifications. SOFT TISSUES: No gross mass or suggestion of organomegaly. HARDWARE: None in the abdomen. BONES: No acute fracture. No worrisome bone lesions. OTHER: No other significant finding. IMPRESSION: No evidence for obstruction. Contrast is in the right colon. TECHNICAL DOCUMENTATION: JOB ID: [id number] 2010 [email or web address]- All Rights Reserved Reading location - IP/workstation name: [email or web address]
[2019-05-25 08:45] LABS: ALBUMIN 3.9 g/dL (3.5-5.0); ALKALINE PHOSPHATASE 67 U/L (38-126); ANION GAP 9 (5-19); ASPARTATE AMINO TRANSFERASE 20 U/L (17-59); BILIRUBIN,DIRECT 0.2 mg/dL (0.0-0.4); BILIRUBIN,TOTAL 1.2 mg/dL (0.2-1.3); BLOOD UREA NITROGEN 12 mg/dL (7-20); CALCIUM 8.8 mg/dL (8.4-10.2); CARBON DIOXIDE 31 mmol/L (22-30); CHLORIDE 98 mmol/L (98-107); GLUCOSE 163 mg/dL (75-110); POTASSIUM 4.1 mmol/L (3.6-5.0); TOTAL PROTEIN 6.5 g/dL (6.3-8.2)
--- NOTE | 2019-05-25 11:52 | PDOC H&P ---
History of Present Illness Admission Date/PCP: 05/24/19 01:33 ADRIANA BURNS MD Patient complains of: nausea, vomiting, abdominal pain History of Present Illness: DAISY CARRERA JR is a 59 year old male who is several weeks status post laparoscopic sigmoid colon resection for complicated diverticulitis. The patient was at home, doing well. He reports "feeling constipated". He did not have a bowel movement for 1 to 2 days. He then began having bloating, cramping abdominal pain, nausea, and vomiting. He presented to the emergency department because his pain was severe and uncontrollable. He vomited several times in the emergency department, and x-rays were obtained. Patient's x-ray showed mild to moderate amount of gas in the small bowel. Patient's lab work was normal. Due to the patient's severe abdominal pain, constant vomiting, and unable to take p.o., he was admitted to the hospital for further work-up. Upon my evaluation, the patient's abdominal pain had significantly improved. He has had several bowel movements. He denies fevers, chills, headache, blurry vision, dizziness, melena, hematochezia, hematemesis. He denies recent sick contacts, or change in his diet. His pain was located in his bilateral lower abdominal quadrants, and did not radiate. The pain was waxing/waning, sharp and stabbing. Past Medical History Cardiac Medical History: Reports: None Pulmonary Medical History: Reports: Asthma - MILD, Sleep Apnea - CPAP NOT NECESSARY AT THIS TIME EENT Medical History: Reports: None Neurological Medical History: Reports: None Endocrine Medical History: Reports: None Renal/ Medical History: Reports: None Malignancy Medical History: Reports: None GI Medical History: Reports: Diverticulitis, Gastroesophageal Reflux Disease - PO MEDS, Hiatal Hernia Musculoskeltal Medical History: Reports: None Skin Medical History: Reports: None Denies: Eczema, Psoriasis Psychiatric Medical History: Reports: None Traumatic Medical History: Reports: None Hematology: Denies: Anemia, Bleeding Tendencies Infectious Medical History: Reports: None Past Surgical History Past Surgical History: Reports: Other - Laparoscopic sigmoid colectomy Denies: Appendectomy, Cholecystectomy, Colostomy, Coronary Artery Bypass Graft, Gastric Bypass Surgery, Pacemaker, Tonsillectomy Social History Lives with: Family Smoking Status: Never Smoker Electronic Cigarette use?: No Frequency of Alcohol Use: None Hx Recreational Drug Use: No Drugs: None Hx Prescription Drug Abuse: No Family History Family History: Malignancy. denies: CAD, DM, Hypertension Parental Family History Reviewed: Yes Children Family History Reviewed: Yes Sibling(s) Family History Reviewed.: Yes Medication/Allergy Home Medications: Pantoprazole Sodium [Protonix [address] Tablet] 20 mg PO DAILY@1700 08/03/18 Imipramine HCl [Tofranil 25 mg Tablet] 25 mg PO DAILY@169904/26/19 Allergies/Adverse Reactions: No Known Allergies Allergy (Verified 05/23/19 18:49) Review of Systems Constitutional: ABSENT: chills, fatigue, fever(s), headache(s), weakness Eyes: ABSENT: visual disturbances Nose, Mouth, and Throat: ABSENT: mouth pain, sore throat Cardiovascular: ABSENT: chest pain Respiratory: ABSENT: cough Gastrointestinal: PRESENT: abdominal pain, bloating, nausea, vomiting Genitourinary: ABSENT: dysuria Musculoskeletal: ABSENT: back pain Integumentary: ABSENT: pruritus, rash Neurological: ABSENT: confusion, convulsions, dizziness Psychiatric: ABSENT: anxiety, depression Endocrine: ABSENT: cold intolerance, heat intolerance Hematologic/Lymphatic: ABSENT: easy bleeding, easy bruising Physical Exam Vital Signs: Temp Pulse Resp BP Pulse Ox 98.6 F 100 17 123/78 97 05/24/19 11:49 05/24/19 11:49 05/24/19 11:49 05/24/19 11:49 05/24/19 11:49 Intake & Output 05/23/19 05/24/19 05/25/19 06:59 06:59 06:59 Intake Total 1000 1000 Balance 1000 1000 Weight 105 kg 105 kg General appearance: PRESENT: no acute distress, cooperative Head exam: PRESENT: atraumatic, normocephalic Eye exam: PRESENT: EOMI, PERRLA. ABSENT: scleral icterus Mouth exam: PRESENT: moist, neck supple Neck exam: ABSENT: meningismus, tenderness, thyromegaly, tracheal deviation Respiratory exam: PRESENT: clear to auscultation db, unlabored. ABSENT: chest wall tenderness, wheezes Cardiovascular exam: PRESENT: RRR Pulses: PRESENT: normal radial pulses Vascular exam: PRESENT: normal capillary refill, pallor GI/Abdominal exam: PRESENT: soft. ABSENT: distended, firm, guarding, rebound, rigid, tenderness Rectal exam: PRESENT: deferred Musculoskeletal exam: ABSENT: deformity Neurological exam: PRESENT: alert, awake, oriented to person, oriented to place, oriented to time, oriented to situation, CN II-XII grossly intact Psychiatric exam: ABSENT: agitated, anxious, depressed Focused psych exam: ABSENT: delusional Skin exam: ABSENT: cyanosis, erythema, jaundice Results Laboratory Results: 05/23/19 19:03 05/23/19 19:03 05/23/19 05/23/19 05/23/19 19:03 19:03 23:15 WBC 8.1 RBC 4.75 Hgb 14.9 Hct 41.6 MCV 88 MCH 31.4 MCHC 35.8 RDW 13.5 Plt Count 267 Seg Neutrophils % 82.4 H Sodium 135.8 L Potassium 4.7 Chloride 96 L Carbon Dioxide 30 Anion Gap 10 BUN 10 Creatinine 0.58 Est GFR ( Amer) > 60 Glucose 120 H Calcium 9.2 Total Bilirubin 1.0 AST 21 Alkaline Phosphatase 75 Total Protein 7.0 Albumin 4.3 Lipase 27.4 Urine Color YELLOW Urine Appearance SLIGHTLY-CLOUDY Urine pH 7.0 Ur Specific [place] [employer] 1.027 Urine Protein 30 H Urine Glucose (UA) NEGATIVE Urine Ketones TRACE H Urine Blood NEGATIVE Urine RBC (Auto) 2 Impressions: Acute Abdomen Series 05/23/19 22:36 IMPRESSION: No acute cardiopulmonary process. Probable mild ileus copyright 2011 [employer]- All Rights Reserved Small Bowel X-Ray 05/24/19 00:00 IMPRESSION: NORMAL GASTROGRAFIN SMALL BOWEL EXAM. NO EVIDENCE OF SMALL-BOWEL OBSTRUCTION. Assessment & Plan - Diagnosis (1) Abdominal pain Qualifiers: Abdominal location: lower abdomen, unspecified Qualified Code(s): R10.30 - Lower abdominal pain, unspecified Is this a current diagnosis for this admission?: Yes (2) Nausea and vomiting Qualifiers: Vomiting type: unspecified Vomiting Intractability: unspecified Qualified Code(s): R11.2 - Nausea with vomiting, unspecified Is this a current diagnosis for this admission?: Yes - Plan Summary Plan Summary: This a 59-year-old male several weeks status post sigmoid colon resection. He has been doing well at home. He reports acute onset of abdominal pain with nausea and vomiting. The patient was admitted to the hospital for further work-up, due to the severity of his pain as well as the persistence of his nausea and vomiting. I have admitted the patient to the hospital, initiated IV hydration, and ordered a small bowel follow-through. The patient has had several bowel movements after admission, which have made him feel somewhat be tter. I will reviewed his small bowel follow-through, to ensure there is no sign of partial small bowel obstruction. If his small bowel follow-through is normal, I will advance the patient's diet, and follow him symptomatically. Repeat labs tomorrow. Repeat x-rays tomorrow. Will follow.
--- NOTE | 2019-05-25 12:40 | PDOC DISCHARGE SUMMARY ---
General - Admit/Disc Date/PCP Admission Date/Primary Care Provider: 05/24/19 01:33 ADRIANA BURNS MD Discharge Date: 05/25/19 - Discharge Diagnosis Final Diagnosis: Abdominal pain, nausea vomiting, constipation - Assessment Summary: Is a 59-year-old male admitted to hospital with abdominal pain, nausea, vomiting, and constipation. He was admitted to rule out significant abnorma lities including small bowel obstruction and colonic leak. The patient underwent laboratory testing, which was normal. The patient underwent x-ray testing, showing air within the small bowel. A subsequent small bowel follow- through failed to show any evidence of small bowel obstruction. Repeat x-rays the following day showed contrast has moved through the small bowel and into the colon. The majority of the contrast is moved through the colon. The patient continues to have bowel movements and feel well. He is tolerating regular diet. His pain, nausea, and vomiting have completely subsided. In light of this, the patient has reached maximal hospital benefit. At this time he is medically fit for discharge. - Additional Information Resuscitation Status: Full Code Discharge Diet: As Tolerated Discharge Activity: No Lifting Over 10 Pounds Referrals: ADRIANA BURNS MD [Primary Care Provider] - Follow up as needed Home Medications: Pantoprazole Sodium [Protonix [address] Tablet] 20 mg PO DAILY@1700 08/03/18 Imipramine HCl [Tofranil 25 mg Tablet] 25 mg PO DAILY@1700 04/26/19 Additional Information: Discharge home. Diet as tolerated. Activity: No lifting greater than 10 pounds. Follow-up with me as previously scheduled. Okay to shower. History of Present Illiness History of Present Illness: DAISY CARRERA JR is a 59 year old male who is several weeks status post laparoscopic sigmoid colon resection for complicated diverticulitis. The patient was at home, doing well. He reports "feeling constipated". He did not have a bowel movement for 1 to 2 days. He then began having bloating, cramping abdominal pain, nausea, and vomiting. He presented to the emergency department because his pain was severe and uncontrollable. He vomited several times in the emergency department, and x-rays were obtained. Patient's x-ray showed mild to moderate amount of gas in the small bowel. Patient's lab work was normal. Due to the patient's severe abdominal pain, constant vomiting, and unable to take p.o., he was admitted to the hospital for further work-up. Upon my evaluation, the patient's abdominal pain had significantly improved. He has had several bowel movements. He denies fevers, chills, headache, blurry vision, dizziness, melena, hematochezia, hematemesis. He denies recent sick contacts, or change in his diet. His pain was located in his bilateral lower abdominal quadrants, and did not radiate. The pain was waxing/waning, sharp and stabbing. Physical Exam Vital Signs: Temp Pulse Resp BP Pulse Ox 98.8 F 109 H 18 127/70 H 97 05/25/19 08:00 05/25/19 08:00 05/25/19 08:00 05/25/19 08:00 05/25/19 08:00 Intake & Output 05/24/19 05/25/19 05/26/19 06:59 06:59 07:59 Intake Total 1000 1840 Balance 1000 1840 Weight 105 kg 105 kg Results Laboratory Results: WBC 6.3 10^3/uL (4.0-10.5) 05/25/19 08:06 RBC 4.72 10^6/uL (4.35-5.55) 05/25/19 08:06 Hgb 14.1 g/dL (13.5-17.0) 05/25/19 08:06 Hct 41.6 % (37.9-51.0) 05/25/19 08:06 MCV 88 fl (80-97) 05/25/19 08:06 MCH 29.9 pg (27.0-33.4) 05/25/19 08:06 MCHC 33.9 g/dL (32.0-36.0) 05/25/19 08:06 RDW 13.4 % (11.5-14.0) 05/25/19 08:06 Plt Count 244 10^3/uL (150-450) 05/25/19 08:06 Lymph % (Auto) 14.4 % (13-45) 05/25/19 08:06 [place] % (Auto) 5.5 % (3-13) 05/25/19 08:06 Eos % (Auto) 2.2 % (0-6) 05/25/19 08:06 Baso % (Auto) 0.7 % (0-2) 05/25/19 08:06 Absolute Neuts (auto) 4.8 10^3/uL (1.7-8.2) 05/25/19 08:06 Absolute Lymphs (auto) 0.9 10^3/uL (0.5-4.7) 05/25/19 08:06 Absolute Monos (auto) 0.3 10^3/uL (0.1-1.4) 05/25/19 08:06 Absolute Eos (auto) 0.1 10^3/uL (0.0-0.6) 05/25/19 08:06 Absolute Basos (auto) 0.0 10^3/uL (0.0-0.2) 05/25/19 08:06 Seg Neutrophils % 77.2 % (42-78) 05/25/19 08:06 Sodium 137.6 mmol/L (137-145) 05/25/19 08:06 Potassium 4.1 mmol/L (3.6-5.0) 05/25/19 08:06 Chloride 98 mmol/L (98-107) 05/25/19 08:06 Carbon Dioxide 31 mmol/L (22-30) H 05/25/19 08:06 Anion Gap 9 (5-19) 05/25/19 08:06 BUN 12 mg/dL (7-20) 05/25/19 08:06 Creatinine 0.82 mg/dL (0.52-1.25) 05/25/19 08:06 Est GFR ( Amer) > 60 (>60) 05/25/19 08:06 Est GFR (MDRD) Non-Af > 60 (>60) 05/25/19 08:06 Glucose 163 mg/dL (75-110) H 05/25/19 08:06 Calcium 8.8 mg/dL (8.4-10.2) 05/25/19 08:06 Total Bilirubin 1.2 mg/dL (0.2-1.3) 05/25/19 08:06 Direct Bilirubin 0.2 mg/dL (0.0-0.4) 05/25/19 08:06 Neonat Total Bilirubin Not Reportable 05/25/19 08:06 Neonat Direct Bilirubin Not Reportable 05/25/19 08:06 Neonat Indirect Bili Not Reportable 05/25/19 08:06 AST 20 U/L (17-59) 05/25/19 08:06 ALT 25 U/L (<50) 05/25/19 08:06 Alkaline Phosphatase 67 U/L (38-126) 05/25/19 08:06 Total Protein 6.5 g/dL (6.3-8.2) 05/25/19 08:06 Albumin 3.9 g/dL (3.5-5.0) 05/25/19 08:06 Lipase 27.4 U/L (23-300) 05/23/19 19:03 Urine Color YELLOW 05/23/19 23:15 Urine Appearance SLIGHTLY-CLOUDY 05/23/19 23:15 Urine pH 7.0 (5.0-9.0) 05/23/19 23:15 Ur Specific [place] 1.027 05/23/19 23:15 Urine Protein 30 mg/dL (NEGATIVE) H 05/23/19 23:15 Urine Glucose (UA) NEGATIVE mg/dL (NEGATIVE) 05/23/19 23:15 Urine Ketones TRACE mg/dL (NEGATIVE) H 05/23/19 23:15 Urine Blood NEGATIVE (NEGATIVE) 05/23/19 23:15 Urine Nitrite (Reflex) NEGATIVE (NEGATIVE) 05/23/19 23:15 Urine Bilirubin NEGATIVE (NEGATIVE) 05/23/19 23:15 Urine Urobilinogen NEGATIVE mg/dL (<2.0) 05/23/19 23:15 Leukocyte Esterase Rfl NEGATIVE (NEGATIVE) 05/23/19 23:15 Urine RBC (Auto) 2 /HPF 05/23/19 23:15 Urine WBC (Reflex) 1 /HPF 05/23/19 23:15 Squamous Epi Cells Auto <1 /HPF 05/23/19 23:15 Urine Mucus (Auto) MANY /LPF 05/23/19 23:15 Urine Ascorbic Acid NEGATIVE (NEGATIVE) 05/23/19 23:15 Impressions: Acute Abdomen Series 05/23/19 22:36 IMPRESSION: No acute cardiopulmonary process. Probable mild ileus copyright 2011 [employer]- All Rights Reserved Small Bowel X-Ray 05/24/19 00:00 IMPRESSION: NORMAL GASTROGRAFIN SMALL BOWEL EXAM. NO EVIDENCE OF SMALL-BOWEL OBSTRUCTION. KUB X-Ray 05/25/19 00:00 IMPRESSION: No evidence for obstruction. Contrast is in the right colon.
[2019-05-25 12:44] VITALS: BP 108/66
== END 2019-05-25 13:19 | disposition home or self-care (01) ==
LOC: ER 18:20 → INTOOBSV 05-24 01:33 → EH 05-24 01:33 → 4N 05-24 03:35
PROVIDERS: ADMIT Surgery; ATTEND Surgery
DX: R10.31 Right lower quadrant pain (principal); R10.32 Left lower quadrant pain; R11.2 Nausea with vomiting, unspecified; K59.00 Constipation, unspecified; R14.0 Abdominal distension (gaseous); K21.9 Gastro-esophageal reflux disease without esophagitis; J45.909 Unspecified asthma, uncomplicated; G47.30 Sleep apnea, unspecified; R14.2 Eructation; Z90.49 Acquired absence of other specified parts of digestive tract; Z87.19 Personal history of other diseases of the digestive system; Z79.899 Other long term (current) drug therapy
CPT/HCPCS: 99285; 96361; 96374; 96375; 36415 ×2; 87040; 83690; 85025 ×2; 80053 ×2; 81001; 74022; 74018; 74250; G0378 ×2; J3490; J2270; S0119; J2405; J7030 ×2